=== PATIENT | male | born 1935 | race Caucasian/White ===

== ENCOUNTER → 2017-12-09 | Outpatient (CLI) | payer OTHER, MEDICARE | LOC: FIMAGING 12:40 | PROVIDERS: ATTEND Psychiatry & Neurology Neurology | DX: R26.9 Unspecified abnormalities of gait and mobility (principal); R41.3 Other amnesia ==

== ENCOUNTER 2017-12-12 00:34 | Emergency (ER) | payer OTHER, MEDICARE ==
[2017-12-12] MEDS ORDERED: NS 1,000 ML IV ONE (01:13)
--- NOTE | 2017-12-12 01:13 | EDPHY ---
H & P Stated Complaint: FALL AT 2030,BGL 336, "HAVING A BAD DAY", SLEEPY, CONFUSION Time Seen by Provider: 12/12/17 01:04 HPI/ROS: Chief Complaint: Confusion, high blood sugar, fall HPI: 82-year-old male with history of diabetes, coronary artery disease. Per family patient has been seeming a little bit more confused since 7 o'clock tonight. Patient was leaning over to get a pair of the refrigerator when he fell to the ground. Did not hit his head. No loss of consciousness. He was helped up by a neighbor. Son arrived home about 11 o'clock and checked in notice blood pressure was in the high 200s. No recent fevers or chills. No cough. No chest pain shortness of breath. No syncope or fainting. Family called nurse line advised them to bring him in for further evaluation. ROS: 10 point Review of Systems is negative except as noted in the HPI. PMH: Hypertension, diabetes, prostate disease, coronary artery disease Social History: No smoking, no alcohol, no recreational drug use Family History: non-contributory Physical Exam: Gen: Awake, Alert, No Distress HEENT: Nose: no rhinorrhea Eyes: PERRLA, EOMI Mouth: Dry mucous membranes Neck: Supple, no JVD Chest: nontender, lungs clear to auscultation Heart: S1, S2 normal, no murmur Abd: Soft, non-tender, no guarding Back: no CVA tenderness, no midline tenderness Ext: no edema, non-tender Skin: no rash Neuro: CN II-XII intact, Sensation grossly intact, Strength 5/5 in bilateral upper and lower extremities - Personal History Current Tetanus/Diphtheria Vaccine: Unsure - Medical/Surgical History Hx Asthma: No Hx Chronic Respiratory Disease: No Hx Diabetes: Yes Hx Cardiac Disease: Yes Hx Renal Disease: No Hx Cirrhosis: No Hx Alcoholism: No Hx HIV/AIDS: No Hx Splenectomy or Spleen Trauma: No Other PMH: 3 stents 1999, BPH, urinary retention x3, HIGH CHOL, CATARACT SURG, DIABETES - Social History Smoking Status: Never smoked Constitutional: Initial Vital Signs Temperature (C) 36.5 C 12/12/17 00:43 Heart Rate 66 12/12/17 00:43 Respiratory Rate 18 12/12/17 00:43 Blood Pressure 131/68 H 12/12/17 00:43 O2 Sat (%) 97 12/12/17 00:43 O2 Delivery Mode Room Air Allergies/Adverse Reactions: pseudoephedrine HCl [From Sudafed] Allergy (Unknown, Verified 12/12/17 00:40) amoxicillin [From Augmentin] Allergy (Verified 12/12/17 00:40) clavulanic acid [From Augmentin] Allergy (Verified 12/12/17 00:40) dextromethorphan Allergy (Verified 12/12/17 00:40) guaifenesin [Guaifenesin] Allergy (Verified 12/12/17 00:40) pseudoephedrine Allergy (Verified 12/12/17 00:40) Home Medications: Medication Instructions Recorded Insulin Glargine [Lantus Insulin 18 unit SQ HS 10/16/11 Vial] Lisinopril [Prinivil] 20 mg PO DAILY 10/16/11 Metformin HCl [Metformin HCl ER] 500 mg PO DAILY 10/16/11 Sotalol HCl [Sotalol] 80 mg PO BID 10/16/11 Aspirin 81mg (*) 12/12/17 Atorvastatin Calcium 12/12/17 Docusate Sodium 12/12/17 Metformin 1000 mg 12/12/17 Tamsulosin HCl 12/12/17 Medical Decision Making ED Course/Re-evaluation: Patient is improved. He is very clinically dehydrated with elevated BUN. Blood sugar is new to 100. Patient is improved after a L fluid. He is awake alert acting appropriately. No signs of infection. Will discharge with follow- up with primary care physician, return for any concerns. He is here with a signed to take him home. - Data Points Laboratory Results: Laboratory Results 12/12/17 01:34 12/12/17 01:34 12/12/17 12/12/17 12/12/17 02:10 01:34 01:34 WBC 12.33 10^3/uL H 10^3/uL (3.80-9.50) RBC 4.54 10^6/uL 10^6/uL (4.40-6.38) Hgb 13.5 g/dL L g/dL (13.7-17.5) Hct 40.1 % % (40.0-51.0) MCV 88.3 fL fL (81.5-99.8) MCH 29.7 pg pg (27.9-34.1) MCHC 33.7 g/dL g/dL (32.4-36.7) RDW 14.6 % % (11.5-15.2) Plt Count 164 10^3/uL 10^3/uL (150-400) MPV 10.5 fL fL (8.7-11.7) Neut % (Auto) 38.7 % L % (39.3-74.2) Lymph % (Auto) 46.6 % H % (15.0-45.0) [place] % (Auto) 10.3 % % (4.5-13.0) Eos % (Auto) 3.5 % % (0.6-7.6) Baso % (Auto) 0.6 % % (0.3-1.7) Nucleat RBC Rel Count 0.2 % % (0.0-0.2) Absolute Neuts (auto) 4.77 10^3/uL 10^3/uL (1.70-6.50) Absolute Lymphs (auto) 5.75 10^3/uL H 10^3/uL (1.00-3.00) Absolute Monos (auto) 1.27 10^3/uL H 10^3/uL (0.30-0.80) Absolute Eos (auto) 0.43 10^3/uL H 10^3/uL (0.03-0.40) Absolute Basos (auto) 0.07 10^3/uL 10^3/uL (0.02-0.10) Absolute Nucleated RBC 0.03 10^3/uL H 10^3/uL (0-0.01) Immature Gran % 0.3 % % (0.0-1.1) Immature Gran # 0.04 10^3/uL 10^3/uL (0.00-0.10) Sodium 141 mEq/L mEq/L (135-145) Potassium 4.9 mEq/L mEq/L (3.5-5.2) Chloride 104 mEq/L mEq/L (97-110) Carbon Dioxide 27 mEq/l mEq/l (22-31) Anion Gap 10 mEq/L mEq/L (8-16) BUN 32 mg/dL H mg/dL (7-23) Creatinine 1.0 mg/dL mg/dL (0.7-1.3) Estimated GFR > 60 Glucose 230 mg/dL H mg/dL (70-100) Calcium 9.4 mg/dL mg/dL (8.5-10.4) Total Bilirubin 0.5 mg/dL mg/dL (0.1-1.4) AST 20 IU/L IU/L (17-59) ALT 24 IU/L IU/L (21-72) Alkaline Phosphatase 59 IU/L IU/L (38-126) Total Protein 6.0 g/dL L g/dL (6.3-8.2) Albumin 3.8 g/dL g/dL (3.5-5.0) Urine Color YELLOW Urine Appearance CLEAR Urine pH 5.0 (5.0-7.5) Ur Specific [place] 1.022 (1.002-1.030) Urine Protein 1+ H (NEGATIVE) Urine Ketones NEGATIVE (NEGATIVE) Urine Blood NEGATIVE (NEGATIVE) Urine Nitrate NEGATIVE (NEGATIVE) Urine Bilirubin NEGATIVE (NEGATIVE) Urine Urobilinogen NEGATIVE EU EU (0.2-1.0) Ur Leukocyte Esterase NEGATIVE (NEGATIVE) Urine RBC NONE SEEN /hpf /hpf (0-3) Urine WBC 1-3 /hpf /hpf (0-3) Ur Epithelial Cells NONE SEEN /lpf /lpf (NONE-1+) Hyaline Casts 25-50 /lpf H /lpf (0-1) Urine Mucus TRACE /lpf /lpf (NONE-1+) Urine Glucose 3+ H (NEGATIVE) Medications Given: Discontinued Medications Sodium Chloride (Ns) 1,000 mls @ 0 mls/hr IV ONCE ONE; Wide Open PRN Reason: Protocol Stop: 12/12/17 01:14 Last Admin: 12/12/17 01:36 Dose: 1,000 mls Departure - Departure Disposition: Home, Routine, Self-Care Clinical Impression: Dehydration, Fall Condition: Good Instructions: Dehydration (ED), Fall Prevention for Older Adults (ED) Additional Instructions: Follow up with primary care physician in 2-3 days for further evaluation. Make sure you drink at least 8, 8 oz glasses of water a day. Return to the emergency department for fainting, chest pain, shortness of breath , nausea or vomiting, or any other concerns. Referrals: Patient,NotPresent [Primary Care Provider] - As per Instructions
[2017-12-12 02:17] LABS: PLATELET COUNT 164 10^3/uL (150-400)
[2017-12-12 03:44] VITALS: BP 164/76
== END 2017-12-12 03:45 | disposition home or self-care (01) ==
DX: E86.0 Dehydration (principal); E11.9 Type 2 diabetes mellitus without complications; I10 Essential (primary) hypertension; I25.10 Atherosclerotic heart disease of native coronary artery without angina pectoris; E86.9 Volume depletion, unspecified; Z04.3 Encounter for examination and observation following other accident; Z79.82 Long term (current) use of aspirin; Z79.84 Long term (current) use of oral hypoglycemic drugs; W18.39XA Other fall on same level, initial encounter

== ENCOUNTER 2018-02-04 09:59 | Inpatient (IN) | payer OTHER, MEDICARE ==
[2018-02-04] MEDS ORDERED: BISACODYL 10 MG SUPP PR PRN (16:11)
[2018-02-04] MEDS ORDERED: POLYETHYLENE GLYCOL 3350 17 GM PKT PO PRN (16:11)
[2018-02-04] MEDS ORDERED: D50W 25 GM/50 ML SYR IVP PRN (16:54)
[2018-02-04] MEDS: metFORMIN HCL 500 MG TAB PO SCH (17:26)
[2018-02-04] MEDS: INSULIN LISPRO 100 UNIT/ML SC SCH (17:27)
--- NOTE | 2018-02-04 18:02 | GHP ---
[f rep st] HISTORY AND PHYSICAL POST ADMISSION PHYSICIAN EVALUATION AND REHABILITATION TREATMENT PLAN DATE OF ADMISSION: 02/04/2018 DATE OF EVALUATION: 02/04/2018 TIME OF EVALUATION: 1605. REFERRING FACILITY: [facility], [place] IMPAIRMENT GROUP: 1.1. DATE OF ONSET: 01/30/2018 REFERRING PHYSICIAN: Dr. Jackson CONSULTING PHYSICIANS: He had a consultation with Neurology, Dr. Mcclure. 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 ETIOLOGIC DIAGNOSIS: Left body involvement (right brain). HISTORY OF PRESENT ILLNESS: This patient presented with left-sided weakness and slurred speech and was admitted to [facility], [place] under a stroke alert. Brain imaging with MRI showed an acute right posterior internal capsule CVA. EKG showed J point elevation in V1 to V3 and T-wave inversion in the inferior lateral leads. Troponin was negative. Echocardiogram showed normal ventricular size and systolic function, ejection fraction of 68%, mild-to -moderate concentric LVH, and grade 1 diastolic dysfunction. He had mild aortic valve stenosis with a mean aortic valve gradient of 15 mmHg. There was no intracardiac shunt seen. Though it is not reported directly in the notes that I have, presumably he had no dysrhythmias noted on tele monitoring. He was already on lisinopril, aspirin, and atorvastatin. Clopidogrel was added to reduce the likelihood of a recurrent stroke. He had initial clinical deterioration including reduced ability to move his left upper extremity. A repeat MRI showed interval increase in the size of the area of restricted diffusion from 3.5 x 5.5 mm to 10 x 6 mm suggesting infarct extension, but there was no hemorrhage or midline shift. He was seen by therapies, was medically stable, and was ready for discharge to inpatient rehabilitation. OTHER STUDIES AND LABS DURING HIS STAY: On the day of discharge from the hospital, 02/04/2018, basic metabolic profile was overall within normal limits. He had an elevated glucose at 150. Creatinine was 0.89 with estimated GFR of 79.6. CBC showed an elevated white blood cell count at 14.4. This apparently is chronic. There was no anemia. Platelet count was normal. On differential, there was no left shift. CT angiogram of the head and neck was negative for stenosis or other vascular abnormality. LDL was 71. PRECAUTIONS: He is a fall risk. He has aspiration precautions. ACTIVE COMORBIDITIES: He has the tier 3 comorbidities of hemiparesis and of diabetes mellitus. PAST MEDICAL HISTORY: 1. Coronary artery disease with history of NE. 2. Hypertension. 3. Diabetes mellitus type 2. 4. Dyslipidemia. 5. Dementia with donepezil initiated approximately 2 weeks ago. 6. Benign prostatic hyperplasia. 7. Spinal stenosis at the L4-L5 level. PAST SURGICAL HISTORY: He has had a transurethral resection of the prostate. He has had bilateral cataract surgery. He has had coronary angioplasty and stent placement. He has had knee surgery. PRE-HOSPITAL MEDICATIONS: 1. Aspirin 81 mg p.o. daily. 2. Atorvastatin 40 mg p.o. daily. 3. Docusate 100 mg p.o. b.i.d. 4. Donepezil 5 mg p.o. q.h.s. 5. Insulin glargine. 6. Lisinopril 20 mg p.o. daily. 7. Metformin 1000 mg p.o. b.i.d. 8. Sotalol 80 mg p.o. b.i.d. 9. Tamsulosin 0.5 mg p.o. daily. ADMISSION MEDICATIONS: 1. Acetaminophen 650 mg p.o. q.4 hours p.r.n. 2. Aspirin 81 mg p.o. daily. 3. Atorvastatin 40 mg p.o. daily. 4. Bisacodyl 10 mg p.r. daily p.r.n. 5. Clopidogrel 75 mg p.o. daily. 6. Docusate 100 mg p.o. b.i.d. 7. Insulin glargine 6 units subcutaneous q.a.m. and 6 units subcutaneous daily at 1600. 8. Lisinopril 20 mg p.o. daily. 9. Loratadine 10 mg p.o. daily. 10. Metformin 500 mg p.o. b.i.d. 11. Polyethylene glycol 17 g p.o. daily p.r.n. 12. Sotalol 80 mg p.o. b.i.d. 13. Tamsulosin 0.4 mg p.o. daily. ALLERGIES: Are listed to pseudoephedrine, amoxicillin, clavulanic acid, dextromethorphan, and guaifenesin. PSYCHOSOCIAL HISTORY: He is . He and his split their time between [place] and [place]. Their son lives in [place]. He has worked as an building architect. Is originally from [place] and came to the [place] in [place]. He served in the in the [employer]. He is a nonsmoker. He enjoys about a half bottle of beer with dinner every night. FAMILY HISTORY: Noncontributory. REVIEW OF SYSTEMS: He reports he has had a cough and was started on a medication in the hospital for it. He denies dyspnea. He is aware of his inability to move the left side of his body. He reports this worsened during his hospitalization. He denies loss of sensation. He denies headache or vision changes. He denies difficulty swallowing. He denies chest pain or palpitations, fevers or chills, nausea, vomiting, constipation, or diarrhea. He has a reduced appetite. He says his feet are always cold, especially his right foot. Otherwise, a 10-point review of systems is negative. PHYSICAL EXAMINATION: VITAL SIGNS: Vitals are not yet available in the chart. His systolic blood pressure however was 180 when first measured on arrival in the unit. His weight this morning at the hospital was 68.9 kg. His vitals this morning at the hospital: Blood pressure was 174/80, heart rate was 61, respiratory rate was 18, oxygen saturation was 95% on room air. Temperature was 36 degrees centigrade. GENERAL: This is a well-nourished, well-developed, elderly man, appears his chronologic age, sitting in a chair in hospital gown, cooperative, and in no acute distress. HEENT: Extraocular movements are intact. Pupils are equal, round, reactive to light. Mucous membranes are moist. Dentition is in good condition. He has an uncrowded airway, Mallampati class 2. There is no posterior oropharyngeal mucus. NECK: Supple. HEART: There is a regular rate and rhythm. There is a 1/6 to 2/6 systolic ejection murmur at the left sternal border. LUNGS: Clear to auscultation bilaterally. ABDOMEN: Soft, nontender, nondistended with normoactive bowel sounds and no hepatosplenomegaly. EXTREMITIES: His feet are mildly cyanotic. There is no clubbing or edema. Radial pulses are 2+ bilaterally, and dorsalis pedis pulses are 1+ bilaterally. NEUROLOGIC: He is alert and oriented x3. Cranial nerves 2 -12 are grossly intact. He has mildly slurred speech. He has flaccid paralysis of the left upper and lower extremities. Sensation is intact to light touch. Deep tendon reflexes are 2+ bilaterally at the patella and absent bilaterally at the Achilles tendons. Plantar reflex is indeterminate bilaterally. There is no increase in tone. There is no tremor. SKIN: He has an approximately 2 cm abrasion on his left posterior thorax over approximately T8 or 9. Otherwise, there is no skin breakdown. CURRENT LEVEL OF FUNCTION PER THE PRE-ADMISSION SCREEN: Regarding diet, feeding and swallowing, there was no reported swallowing deficit. He required minimal assist for self-feeding. Regarding dressing, he required maximal assist for lower body and minimal assist with for upper body with cues for spinal precautions. For toileting, he was dependent for clothing management and hygiene. Regarding continence, he had episodes of bowel incontinence during a therapy session. Bed mobility required moderate assist for logroll. Transfers required moderate assist. He used a front-wheeled walker and wheelchair. Regarding balance, he needed assistance with sitting balance and to attain and maintain midline. For standing balance, he needed assistance of 2 with a front-wheeled walker. Regarding endurance, he had decreased activity tolerance. He was able to stand for approximately 1 minute. Gait required maximal assist with facilitation for pre-gait activities. Regarding cognition, he was noted to be oriented and to follow multistep commands with increased time. He needed assistance to identify errors. He had decreased awareness of deficits. It was noted that he is left handed. On today's exam, there are no significant changes from the preadmission screen. IMPRESSION: This is an 82-year-old man with a history of hypertension, diabetes , dyslipidemia, and coronary artery disease, who suffered a cerebrovascular accident to the right internal capsule on 01/30/2018, causing left upper and lower extremity hemiparesis. Hospital evaluation included an echocardiogram with no embolic source, head and neck CT angiogram with no embolic source and no stenosis, and presumably telemetry monitoring with no report of dysrhythmias. The stroke happened while he was on aspirin, so clopidogrel was added for secondary prevention. He was medically stabilized, participating in therapies, and appropriate for inpatient rehabilitation. His goal is to complete a rehabilitation stay and then discharge to his son's home in [place] with family and home care services. For a safe discharge, it is anticipated that he will require supervision with bed mobility, achieve standby assist level for transfers, be able to ambulate for household distances with the least restrictive device with contact guard, will be able to negotiate a flight of stairs with a rail on the right or cane with contact guard assist, and to be able to propel a wheelchair independently. It is likely he will require supervision and cues for bathing and dressing. He will receive therapy with physical therapy, occupational therapy, and speech and language pathology for 60 minutes per day for each discipline on 5-7 days of the week. His anticipated length of stay is 14 days. It is anticipated that upon discharge he will continue to benefit from home health services including an aide, occupational therapy, and physical therapy. PLAN: 1. CVA, right internal capsule, with left upper and lower extremity hemiparesis in a [id number] man. PT and OT to optimize mobility and activities of daily living to the standby assist or contact guard assist level. 2. Dysarthria and history of dementia to be evaluated further by Speech and Language Pathology. 3. Secondary prevention of cerebrovascular accident/neuro recovery. Continue aspirin, clopidogrel, blood pressure and lipid control. Will initiate fluoxetine for neuro recovery at 10 mg daily beginning tomorrow, 02/05/2018. If it is tolerated, we will titrate to 20 mg p.o. daily. 4. Hypertension. Continue lisinopril. Blood pressure is elevated upon arrival at the rehabilitation unit. However, this may be due to the stresses of his trip from [place]. Continue to monitor blood pressures and will adjust and add medications as necessary to achieve target of less than 140/90. 5. Dyslipidemia. Continue atorvastatin. 6. History of dementia, mild. Per hospital records, the SLUMS was administered and he scored 17/30. He has been on donepezil 5 mg q.h.s. for approximately 2 weeks, and this will be continued. 7. History of cardiac dysrhythmia, unclear what the rhythm abnormality was. He is on sotalol, which also contributes to blood pressure control. 8. Risk for QT prolongation with concurrent donepezil and sotalol. Will obtain a copy of EKG from [facility], [place]. If there is no acute T prolongation, will make no change in these medications. 9. Possible peripheral vascular disease with cyanotic and cold feet. Secondary prevention for cerebrovascular accident and coronary artery disease will also serve to prevent worsening of circulation to his lower extremities. 10. Cough, presumably due to seasonal allergies, as he was begun on an antihistamine at the hospital. Will continue cetirizine per hospital formulary. If cough continues, we will evaluate further. 11. Diabetes mellitus type 2. Continue metformin at 500 mg p.o. b.i.d. Continue insulin glargine at 6 units twice daily. Will likely plan to consolidate this as a single h.s. dose. Will initiate sliding scale with insulin lispro and adjust medications as needed. A reasonable goal would be to see if he can be managed on oral antihyperglycemics alone. Per hospital discharge information, his hemoglobin A1c was 8.5%. It would be in his interest to have improved glucose control, though given his age and comorbidities, a reasonable goal would be 8%. 12. Chronic leukocytosis. He had no signs or symptoms of infection in the hospital. The differential was primary lymphocytes, and the hospital physicians queried whether he has an underlying leukemia, and per hospital records, the reported that he had a long history of leukocytosis, had seen oncologist in [place], and no further evaluation or treatment was advised at that time. 13. Spinal stenosis. He has been placed on spinal precautions. It is unclear if these are truly necessary, but it is worthwhile to prevent any complications from his L4-L5 grade 1 degenerative spondylolisthesis and severe acquired central canal stenosis. 14. Prophylaxis. He is at elevated risk for DVT given his age and hemiparesis. Will initiate enoxaparin 40 mg subcutaneous daily and will provide sequential compression devices to his legs at night. FOLLOWUP: He had followup advised in 2 weeks with the neurologist in [place], Dr. Mcclure, though it seems likely that he will seek followup with a neurologist in [place] where his son lives. PRIMARY CARE PROVIDER: Mariela Matthews MD, in [place]. /[id number]/MODL [id number]
[2018-02-04] MEDS: SOTALOL HCL 80 MG TAB PO SCH (21:21)
[2018-02-04] MEDS: DONEPEZIL HCL 5 MG TAB PO SCH (21:24)
[2018-02-05] MEDS: INSULIN LISPRO 100 UNIT/ML SC SCH ×3 (08:41→19:51)
[2018-02-05] MEDS: ENOXAPARIN 40 MG/0.4 ML SYR SC SCH (08:44)
[2018-02-05] MEDS: ATORVASTATIN CALCIUM 40 MG TAB PO SCH (08:44)
[2018-02-05] MEDS: CLOPIDOGREL BISULFATE 75 MG TAB PO SCH (08:44)
[2018-02-05] MEDS: TAMSULOSIN HCL 0.4 MG CAP PO SCH (08:45)
[2018-02-05] MEDS: FLUoxetine 10 MG CAP PO SCH (08:45)
[2018-02-05] MEDS: ASPIRIN EC 81 MG TAB PO SCH (08:45)
[2018-02-05] MEDS: CETIRIZINE 10 MG TAB PO SCH (08:46)
[2018-02-05] MEDS: metFORMIN HCL 500 MG TAB PO SCH (08:46)
[2018-02-05] MEDS: LISINOPRIL 20 MG TAB PO SCH (08:50)
[2018-02-05] MEDS: SOTALOL HCL 80 MG TAB PO SCH ×2 (08:50→21:25)
[2018-02-05] MEDS ORDERED: INSULIN GLARGINE 100 UNITS/ML SYRINGE SC SCH ×2 (09:00→16:00)
--- NOTE | 2018-02-05 12:22 | SOAPPROG ---
SOAP Progress Note Assessment/Plan: Assessment: CVA, right internal capsule, 01/30/2018, with left upper and lower extremity hemiparesis in a [id number] man. * PT and OT to optimize mobility and activities of daily living to the standby assist or contact guard assist level. Dysarthria and history of dementia to be evaluated further by Speech and Language Pathology. Secondary prevention of cerebrovascular accident/neuro recovery. * Continue aspirin, clopidogrel, blood pressure and lipid control. * Initiate fluoxetine for neuro recovery at 10 mg daily beginning 02/05/2018. If it is tolerated, will titrate to 20 mg p.o. daily. Hypertension. Continue lisinopril. Blood pressure is elevated. * Add amlodipine 2.5 mg at bedtime starting 02/05/2018. Dyslipidemia. Continue atorvastatin. Diabetes mellitus type 2. * Increase metformin from 500 mg p.o. b.i.d to 850 mg BID starting 02/05/2018. * On insulin glargine at 6 units twice daily; change to 12 mg at HS starting 02/06.. Continue sliding scale with insulin lispro and adjust medications as needed. A reasonable goal would be to see if he can be managed on oral antihyperglycemics alone. * Per hospital discharge information, his hemoglobin A1c was 8.5%.Given his age and comorbidities, a reasonable goal would be 8%. History of dementia. Per hospital records, the SLUMS was administered and he scored 17/30. He has been on donepezil 5 mg q.h.s. for approximately 2 weeks, and this will be continued. History of cardiac dysrhythmia, unclear what the rhythm abnormality was. He is on sotalol, which also contributes to blood pressure control. Risk for QT prolongation with concurrent donepezil and sotalol. Reviewed EKG from [facility]. No QT prolongation. Possible peripheral vascular disease with cyanotic and cold feet. Secondary prevention for cerebrovascular accident and coronary artery disease will also serve to prevent worsening of circulation to his lower extremities. Cough, due to seasonal allergies. Continue cetirizine. Chronic leukocytosis. He had no signs or symptoms of infection in the hospital. The differential was primary lymphocytes, and the hospital physicians queried whether he has an underlying leukemia, and per hospital records, the reported that he had a long history of leukocytosis, had seen oncologist in [place], and no further evaluation or treatment was advised at that time. Spinal stenosis. He has been placed on spinal precautions. It is unclear if these are truly necessary, but it is worthwhile to prevent any complications from his L4-L5 grade 1 degenerative spondylolisthesis and severe acquired central canal stenosis. Prophylaxis. He is at elevated risk for DVT given his age and hemiparesis. Will initiate enoxaparin 40 mg subcutaneous daily and will provide sequential compression devices to his legs at night. FOLLOWUP: He had followup advised in 2 weeks with the neurologist in [place], Dr. Mcclure, though it seems likely that he will seek followup with a neurologist in [place] where his son lives. PRIMARY CARE PROVIDER: Mariela Matthews MD, in [place]. 02/05/18 12:22 02/05/18 14:45 Subjective: Inpatient about lack of improvement. Otherwise without complaint. He did not notice coughing overnight. Has history of seasonal allergies with cough due to postnasal drainage. He was on fluticasone nasal spray at 1 time for about a week and did not notice any improvement. He says he did best while in the hospital when he was given Claritin as well as Tessalon Perle. No dyspnea, no fevers or chills. Objective: Vital Signs Temp Pulse Resp BP Pulse Ox 36.6 C 58 L 18 168/86 H 93 02/05/18 08:00 02/05/18 08:50 02/05/18 08:00 02/05/18 08:50 02/05/18 08:00 02/04/18 02/05/18 02/06/18 05:59 05:59 05:59 Intake Total 350 Output Total 430 Balance -80 Physical Exam - Physical Exam General Appearance: WD/WN, alert, no apparent distress Respiratory: normal breath sounds, No crackles, No rhonchi, No wheezing Cardiac/Chest: regular rate, rhythm, systolic murmur, No edema Skin: normal color, warm/dry Neuro/Psych: alert, normal mood/affect, motor weakness (Left upper and lower extremities), speech abnormalities (Hypophonia and mild dysarthria) ICD10 Worksheet Patient Problems: Problems Problem Status Onset Cerebrovascular accident (CVA) involving left cerebral hemisphere Acute - ICD10 Problem Qualifiers (1) Cerebrovascular accident (CVA) involving left cerebral hemisphere
--- NOTE | 2018-02-05 12:22 | PDOREHIP ---
Admission [facility] - Admission - 3 Day Assessment Period Admission Date/Day 1: 02/04/18 Day 2: 02/05/18 Day 3: 02/06/18 - Active Diagnoses Comorbidities and Co-existing Conditions at Admission: 60682. DM (e.g. diabetic retinopathy, nephropathy, and neuropathy) - Skin Conditions Unhealed Pressure Ulcer (1 or more/Stage 1 or >)-Admission: 0. No
[2018-02-05] MEDS ORDERED: metFORMIN HCL 850 MG TAB PO SCH (15:00)
[2018-02-05] MEDS: metFORMIN HCL 850 MG TAB PO SCH (19:44)
[2018-02-05] MEDS: DONEPEZIL HCL 5 MG TAB PO SCH (21:25)
[2018-02-06] MEDS: ACETAMINOPHEN 325 MG TAB PO PRN (03:06)
[2018-02-06] MEDS: INSULIN LISPRO 100 UNIT/ML SC SCH ×3 (08:13→17:18)
[2018-02-06] MEDS: CETIRIZINE 10 MG TAB PO SCH (08:47)
[2018-02-06] MEDS: TAMSULOSIN HCL 0.4 MG CAP PO SCH (08:47)
[2018-02-06] MEDS: ATORVASTATIN CALCIUM 40 MG TAB PO SCH (08:48)
[2018-02-06] MEDS: metFORMIN HCL 850 MG TAB PO SCH ×2 (08:52→17:17)
[2018-02-06] MEDS: CLOPIDOGREL BISULFATE 75 MG TAB PO SCH (08:57)
[2018-02-06] MEDS: LISINOPRIL 20 MG TAB PO SCH (08:58)
[2018-02-06] MEDS: SOTALOL HCL 80 MG TAB PO SCH ×2 (09:00→20:58)
[2018-02-06] MEDS: FLUoxetine 10 MG CAP PO SCH (09:02)
[2018-02-06] MEDS: ASPIRIN EC 81 MG TAB PO SCH (09:02)
[2018-02-06] MEDS: ENOXAPARIN 40 MG/0.4 ML SYR SC SCH (10:03)
--- NOTE | 2018-02-06 11:40 | SOAPPROG ---
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 * Initial functional independence measure 38 on 02/06/2018. Maximal assist for bed mobility, 2 person transfer with moderate to maximal assist. Minimal assist for grooming and hygiene for seated balance. Upper body dressing requires maximal assist with cues, lower body dressing requires total assist. He can stand at the rail with 2 person assist. Maximal assist and cues for bathing. * Continue PT and OT to optimize mobility and activities of daily living to the standby assist or contact guard assist level. Dysarthria and history of dementia. * Working memory is very impaired. Also with decreased attention, organization , initiation and problem-solving. * SLUMS in the hospital was . * Continue Speech and Language Pathology. Continue donepezil. Secondary prevention of cerebrovascular accident/neuro recovery. * Continue aspirin, clopidogrel, blood pressure and lipid control. * Initiate fluoxetine for neuro recovery at 10 mg daily beginning 02/05/2018. If it is tolerated, will titrate to 20 mg p.o. daily. Hypertension. Continue lisinopril. Blood pressure is elevated. * Added amlodipine 2.5 mg at bedtime starting 02/05/2018 but had low blood pressure at HS 02/05/2018 so discontinued amlodipine. * Blood pressure elevated in the morning 02/06/2018. Resume amlodipine 2.5 mg q.day morning dosing. Diabetes mellitus type 2. * Increase metformin from 500 mg p.o. b.i.d to 850 mg BID starting 02/05/2018. * On insulin glargine at 6 units twice daily; fasting blood sugar lower than necessary 02/06/2018. Change to 8 units at HS starting 02/06/2018.. Continue sliding scale with insulin lispro and adjust medications as needed. A reasonable goal would be to see if he can be managed on oral antihyperglycemics alone. * Per hospital discharge information, his hemoglobin A1c was 8.5%.Given his age and comorbidities, a reasonable goal would be 8%. Weight loss in recent months. * Related to influenza, shingles and secondary Staphylococcus infection. * Consultation with dietitian. Bowel and bladder incontinence. * Continue condom catheter at night. * Scheduled toileting. Dyslipidemia. Continue atorvastatin. History of cardiac dysrhythmia, unclear what the rhythm abnormality was. He is on sotalol, which also contributes to blood pressure control. Risk for QT prolongation with concurrent donepezil and sotalol. Reviewed EKG from [facility]. No QT prolongation. Possible peripheral vascular disease with cyanotic and cold feet. Secondary prevention for cerebrovascular accident and coronary artery disease will also serve to prevent worsening of circulation to his lower extremities. Cough, due to seasonal allergies. Continue cetirizine. Chronic leukocytosis. He had no signs or symptoms of infection in the hospital. The differential was primary lymphocytes, and the hospital physicians queried whether he has an underlying leukemia, and per hospital records, the reported that he had a long history of leukocytosis, had seen oncologist in [place], and no further evaluation or treatment was advised at that time. Spinal stenosis. He has been placed on spinal precautions. It is unclear if these are truly necessary, but it is worthwhile to prevent any complications from his L4-L5 grade 1 degenerative spondylolisthesis and severe acquired central canal stenosis. Prophylaxis. He is at elevated risk for DVT given his age and hemiparesis. Will initiate enoxaparin 40 mg subcutaneous daily and will provide sequential compression devices to his legs at night. DISPOSITION: Attended staffing, 15 min. Discussed with case management, dietitian, nursing, PT, OT, RESPIRATORY PHYSICIAN. Primary residence is in [place] where there is no local family. He and his spent considerable time in [place] at their son's home with multiple steps to enter and steps to the bedroom in the house. At present goal is either sufficient independence to return to [place] or ability to climb stairs for return to son's home in [place]. Discharge date set for 03/06/2018. FOLLOWUP: He had followup advised in 2 weeks with the neurologist in [place], Dr. Mcclure, though it seems likely that he will seek followup with a neurologist in [place] where his son lives. PRIMARY CARE PROVIDER: Mariela Matthews MD, in [place]. 02/06/18 11:18 Subjective: Complains about the placement of bars in the bathroom. He thinks there should be a bar directly in front of the toilet for patient's to pull up on when getting off the toilet. Otherwise without complaints. Slept well, not in pain , no cough or dyspnea, no fevers or chills. Has noted return of movement to his left hand. Says he gets sudden bowel urgency and does not get transferred to the toilet in time and thus has incontinence. Objective: Vital Signs Temp Pulse Resp BP Pulse Ox 36.3 C 61 18 162/75 H 94 02/06/18 06:28 02/06/18 09:00 02/06/18 06:28 02/06/18 09:00 02/06/18 06:28 02/05/18 02/06/18 02/07/18 05:59 05:59 05:59 Intake Total 350 160 360 Output Total 430 425 75 Balance -80 -265 285 - Time Spent With Patient Time Spent With Patient: Greater than 35 min floor time today, including more than 50% of time in coordination of care during staffing meeting, and counseling patient. Physical Exam - Physical Exam General Appearance: WD/WN, alert, no apparent distress Respiratory: normal breath sounds, No crackles, No rhonchi, No wheezing Cardiac/Chest: regular rate, rhythm, No edema, No JVD Skin: normal color, warm/dry Neuro/Psych: alert, normal mood/affect, motor weakness (Left upper and lower extremities. Demonstrates some movement of the left fingers and left shoulder.) , other (Appears to have reduced awareness of position of left arm.) ICD10 Worksheet Patient Problems: Problems Problem Status Onset Cerebrovascular accident (CVA) involving left cerebral hemisphere Acute - ICD10 Problem Qualifiers (1) Cerebrovascular accident (CVA) involving left cerebral hemisphere
[2018-02-06] MEDS: DONEPEZIL HCL 5 MG TAB PO SCH (20:58)
[2018-02-06] MEDS ORDERED: INSULIN GLARGINE 100 UNITS/ML UNIT SC SCH (21:00)
[2018-02-06] MEDS: INSULIN GLARGINE 100 UNITS/ML UNIT SC SCH (21:00)
[2018-02-07] MEDS: INSULIN LISPRO 100 UNIT/ML SC SCH ×3 (08:31→17:09)
[2018-02-07] MEDS: metFORMIN HCL 850 MG TAB PO SCH ×2 (08:33→17:08)
[2018-02-07] MEDS: ASPIRIN EC 81 MG TAB PO SCH (08:34)
[2018-02-07] MEDS: ATORVASTATIN CALCIUM 40 MG TAB PO SCH (08:34)
[2018-02-07] MEDS: ENOXAPARIN 40 MG/0.4 ML SYR SC SCH (08:35)
[2018-02-07] MEDS: CETIRIZINE 10 MG TAB PO SCH (08:35)
[2018-02-07] MEDS: FLUoxetine 10 MG CAP PO SCH (08:35)
[2018-02-07] MEDS: CLOPIDOGREL BISULFATE 75 MG TAB PO SCH (08:35)
[2018-02-07] MEDS: LISINOPRIL 20 MG TAB PO SCH (08:36)
[2018-02-07] MEDS: TAMSULOSIN HCL 0.4 MG CAP PO SCH (08:36)
[2018-02-07] MEDS: SOTALOL HCL 80 MG TAB PO SCH ×2 (08:36→21:04)
--- NOTE | 2018-02-07 16:08 | SOAPPROG ---
CASIE Progress Note Assessment/Plan: 82-year-old male status post a right posterior internal capsule stroke diagnosed 01/30/2018, impairments in mobility, self-care, including dysarthria and history of dementia. Today's update: I met with the family for about 20 min and discussed treatment options for diabetes management as well as low back pain. Also discussed with them the patient's history of dementia. A total of 35 min was spent on the floor in the care of the patient, the majority of which was spent counseling and coordination of care described above. Overall, he seems to be doing well in therapy but is limited by low back pain per the therapist. He concurs with this as well. Otherwise the therapist did not express other concerns. He was working with 2 therapists in physical therapy on weight shifting. Family endorse that he was diagnosed with some brain atrophy but did not specifically say he was diagnosed with dementia. His blood pressure is well controlled today , there are some runny is values in the record, showing 180/80 and I was told that these were in error. Continue current dose of lisinopril, would consider amlodipine if an additional agent was necessary but would likely increase lisinopril [address] Ruggiero recommendation. Continue to watch his diabetes very closely. He just recently had metformin increased from 500 mg p. O. Twice a day to 850 mg p. O. Twice a day. Continue the glargine and sliding scale insulin with the goal to reach calculate his overall dosage tomorrow with some mealtime insulin. Plan to continue a condom catheter at night for now. Starting a low-dose gabapentin 3 times a day for low back pain management well they consider whether not to do acupuncture. Additional issues reviewed but not changed today include secondary prevention of stroke not otherwise discussed above, weight loss, bowel and bladder incontinence , cardiac dysrhythmia, risk of QT prolongation, possible peripheral vascular disease, cough, chronic leukocytosis, DVT prophylaxis. Plan to discharge 03/06/[address] Ruggiero 02/07/18 16:02 Subjective: Chief complaint: Rehab progress No acute events overnight. I spoke at length with family regarding issues around urinary incontinence at night, low back pain, history of dementia, diabetes management, management of bowel meds. They asked for no MiraLax, they also asked for p.r.n. Enema. Additional details can be found in the assessment and plan as well. Patient denies any new shortness of breath or chest pain, no new numbness, tingling, or weakness. He feels like his therapy is going well. No particular concerns. Objective: Vital Signs Temp Pulse Resp BP Pulse Ox 36.3 C 62 16 104/63 95 02/07/18 06:41 02/07/18 10:35 02/07/18 10:35 02/07/18 10:35 02/07/18 06:41 02/06/18 02/07/18 02/08/18 05:59 05:59 05:59 Intake Total 160 1230 Output Total 425 1005 100 Balance -265 225 -100 Physical Exam - Physical Exam General Appearance: WD/WN, alert, no apparent distress, thin EENT: No scleral icterus (R), No scleral icterus (L) Respiratory: No respiratory distress, No accessory muscle use Cardiac/Chest: normal peripheral pulses, regular rate, rhythm, No edema Abdomen: non-tender, soft Skin: normal color, warm/dry, No cyanosis, No diaphoresis Extremities: No pedal edema, No swelling Neuro/Psych: alert, normal mood/affect ICD10 Worksheet Patient Problems: Problems Problem Status Onset Cerebrovascular accident (CVA) involving left cerebral hemisphere Acute
[2018-02-07] MEDS: GABAPENTIN 100 MG CAP PO SCH ×2 (17:08→21:09)
[2018-02-07] MEDS: INSULIN GLARGINE 100 UNITS/ML UNIT SC SCH (21:04)
[2018-02-07] MEDS: DONEPEZIL HCL 5 MG TAB PO SCH (21:05)
[2018-02-08] MEDS: ATORVASTATIN CALCIUM 40 MG TAB PO SCH (08:22)
[2018-02-08] MEDS: ENOXAPARIN 40 MG/0.4 ML SYR SC SCH (08:22)
[2018-02-08] MEDS: FLUoxetine 10 MG CAP PO SCH (08:23)
[2018-02-08] MEDS: metFORMIN HCL 850 MG TAB PO SCH ×2 (08:23→17:41)
[2018-02-08] MEDS: GABAPENTIN 100 MG CAP PO SCH ×3 (08:23→21:00)
[2018-02-08] MEDS: SOTALOL HCL 80 MG TAB PO SCH ×2 (08:23→21:00)
[2018-02-08] MEDS: ASPIRIN EC 81 MG TAB PO SCH (08:23)
[2018-02-08] MEDS: LISINOPRIL 20 MG TAB PO SCH (08:23)
[2018-02-08] MEDS: CLOPIDOGREL BISULFATE 75 MG TAB PO SCH (08:24)
[2018-02-08] MEDS: TAMSULOSIN HCL 0.4 MG CAP PO SCH (08:25)
[2018-02-08] MEDS: CETIRIZINE 10 MG TAB PO SCH (08:25)
[2018-02-08] MEDS: INSULIN LISPRO 100 UNIT/ML SC SCH ×5 (08:34→17:41)
--- NOTE | 2018-02-08 11:50 | SOAPPROG ---
SOAP Progress Note Assessment/Plan: 82-year-old male status post a right posterior internal capsule stroke diagnosed 01/30/2018, impairments in mobility, self-care, including dysarthria and history of dementia. Today's update: Adjusted diabetes regimen today to include 2 units of short- acting insulin before meals along with a lower dose sliding scale insulin, goal to normalize glucose and gradually increase the daily dose of insulin as needed. Being careful considering he recently increased his dose of metformin. Also he continues to endorse some low back pain, unsure if the new gabapentin has been helpful. Counseled the family that steroid injections for the spine are not available as an inpatient but we would pursue that after discharge. Recorded blood pressures are somewhat erratically, working with nursing to ensure that there accurate. Otherwise started docusate every other day which was his home regimen. Additional issues reviewed but not changed today include secondary prevention of stroke not otherwise discussed above, weight loss, bowel and bladder incontinence , cardiac dysrhythmia, risk of QT prolongation, possible peripheral vascular disease, cough, chronic leukocytosis, DVT prophylaxis. Plan to discharge 03/06/[address] Ruggiero 02/07/18 16:02 02/08/18 11:46 Subjective: Chief complaint diabetes management and rehabilitation progress No acute events overnight. Patient denies any new shortness of breath or chest pain, no new numbness, tingling, or weakness. His glucoses run a bit high and he has received about a total units of sliding scale insulin in the past 24 hr, no episodes of hypoglycemia. He endorses some ongoing low back pain, he is not sure of gabapentin has yet been helpful. Still wanting and steroid injection when possible. Therapy notes that he is participating but pain is an issue for him. Objective: Vital Signs Temp Pulse Resp BP Pulse Ox 36.4 C 66 16 100/64 94 02/08/18 09:30 02/08/18 09:30 02/08/18 09:30 02/08/18 09:30 02/08/18 09:30 02/07/18 02/08/18 02/09/18 05:59 05:59 05:59 Intake Total 1230 650 Output Total 1005 225 Balance 225 425 Physical Exam - Physical Exam General Appearance: WD/WN, alert, no apparent distress EENT: No scleral icterus (R), No scleral icterus (L) Respiratory: No respiratory distress, No accessory muscle use Cardiac/Chest: normal peripheral pulses, regular rate, rhythm, No edema Extremities: non-tender, No pedal edema, No calf tenderness, No swelling, No Sarbjit's sign Neuro/Psych: alert, normal mood/affect, motor weakness ICD10 Worksheet Patient Problems: Problems Problem Status Onset Cerebrovascular accident (CVA) involving left cerebral hemisphere Acute
[2018-02-08] MEDS: DOCUSATE SODIUM 100 MG CAP PO SCH (12:33)
[2018-02-08] MEDS: DONEPEZIL HCL 5 MG TAB PO SCH (20:56)
[2018-02-08] MEDS: INSULIN GLARGINE 100 UNITS/ML UNIT SC SCH (21:11)
[2018-02-08] MEDS ORDERED: CEPACOL LOZENGE PO PRN (22:52)
[2018-02-09] MEDS: INSULIN LISPRO 100 UNIT/ML SC SCH ×6 (09:12→17:36)
[2018-02-09] MEDS: metFORMIN HCL 850 MG TAB PO SCH (09:13)
[2018-02-09] MEDS: ENOXAPARIN 40 MG/0.4 ML SYR SC SCH (09:16)
[2018-02-09] MEDS: ATORVASTATIN CALCIUM 40 MG TAB PO SCH (09:18)
[2018-02-09] MEDS: ASPIRIN EC 81 MG TAB PO SCH (09:18)
[2018-02-09] MEDS: CETIRIZINE 10 MG TAB PO SCH (09:18)
[2018-02-09] MEDS: CLOPIDOGREL BISULFATE 75 MG TAB PO SCH (09:19)
[2018-02-09] MEDS: FLUoxetine 10 MG CAP PO SCH (09:19)
[2018-02-09] MEDS: GABAPENTIN 100 MG CAP PO SCH ×3 (09:19→21:11)
[2018-02-09] MEDS: SOTALOL HCL 80 MG TAB PO SCH ×2 (09:22→21:42)
[2018-02-09] MEDS: LISINOPRIL 20 MG TAB PO SCH (09:22)
[2018-02-09] MEDS: TAMSULOSIN HCL 0.4 MG CAP PO SCH (09:23)
--- NOTE | 2018-02-09 12:51 | SOAPPROG ---
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 * Initial functional independence measure 38 on 02/06/2018. Maximal assist for bed mobility, 2 person transfer with moderate to maximal assist. Minimal assist for grooming and hygiene for seated balance. Upper body dressing requires maximal assist with cues, lower body dressing requires total assist. He can stand at the rail with 2 person assist. Maximal assist and cues for bathing. * Continue PT and OT to optimize mobility and activities of daily living to the standby assist or contact guard assist level. Dysarthria and history of dementia. * Working memory is very impaired. Also with decreased attention, organization , initiation and problem-solving. * SLUMS in the hospital was . * Continue Speech and Language Pathology. Continue donepezil. Secondary prevention of cerebrovascular accident/neuro recovery. * Continue aspirin, clopidogrel, blood pressure and lipid control. * Initiate fluoxetine for neuro recovery at 10 mg daily beginning 02/05/2018. Titrate to 20 mg p.o. daily starting 02/10/2018. Hypertension. Continue lisinopril. Blood pressure is elevated. * Added amlodipine 2.5 mg at bedtime starting 02/05/2018 but had low blood pressure at HS 02/05/2018 so discontinued amlodipine. * Blood pressure elevated in the morning 02/06/2018. Resume amlodipine 2.5 mg q.day morning dosing. Diabetes mellitus type 2. * Increase metformin from 500 mg p.o. b.i.d to 850 mg BID starting 02/05/2018. Titrate further to 1000 mg twice daily starting 02/10/2018. * On insulin glargine at 6 units twice daily; fasting blood sugar lower than necessary 02/06/2018. Change to 8 units at HS starting 02/06/2018.. Continue sliding scale with insulin lispro and adjust medications as needed. Insulin lispro 2 units three times daily with meals started 02/08/2018. * Per hospital discharge information, his hemoglobin A1c was 8.5%.Given his age and comorbidities, a reasonable goal would be 8%. Weight loss in recent months. * Related to influenza, shingles and secondary Staphylococcus infection. * Consultation with dietitian. Bowel and bladder incontinence. * Continue condom catheter at night. * Scheduled toileting. * Bladder scan to rule out urinary retention. Urinary incontinence might be related to donepezil. If there is no urinary retention, consider discussion with patient and family regarding risks and benefits of donepezil. Dyslipidemia. Continue atorvastatin. History of cardiac dysrhythmia, unclear what the rhythm abnormality was. He is on sotalol, which also contributes to blood pressure control. Risk for QT prolongation with concurrent donepezil and sotalol. Reviewed E[facility] from [facility]. No QT prolongation. Possible peripheral vascular disease with cyanotic and cold feet. Secondary prevention for cerebrovascular accident and coronary artery disease will also serve to prevent worsening of circulation to his lower extremities. Cough, due to seasonal allergies. Continue cetirizine. Chronic leukocytosis. He had no signs or symptoms of infection in the hospital. The differential was primary lymphocytes, and the hospital physicians queried whether he has an underlying leukemia, and per hospital records, the reported that he had a long history of leukocytosis, had seen oncologist in [place], and no further evaluation or treatment was advised at that time. Spinal stenosis. He has been placed on spinal precautions. It is unclear if these are truly necessary, but it is worthwhile to prevent any complications from his L4-L5 grade 1 degenerative spondylolisthesis and severe acquired central canal stenosis. Prophylaxis. He is at elevated risk for DVT given his age and hemiparesis. Will initiate enoxaparin 40 mg subcutaneous daily and will provide sequential compression devices to his legs at night. DISPOSITION: Primary residence is in [place] where there is no local family. He and his spent considerable time in [place] at their son's home with multiple steps to enter and steps to the bedroom in the house. At present goal is either sufficient independence to return to [place] or ability to climb stairs for return to son's home in [place]. Discharge date set for 2017. FOLLOWUP: He had followup advised in 2 weeks with the neurologist in [place], Dr. Mcclure, though it seems likely that he will seek followup with a neurologist in [place] where his son lives. PRIMARY CARE PROVIDER: Mariela Matthews MD, in [place]. 02/09/18 12:47 Subjective: Complains of intermittent left thigh pain. Happens once moving through certain positions. 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 He reports a little better today. Otherwise without complaints, other than frustration regarding the slow rate of his progress. Objective: Vital Signs Temp Pulse Resp BP Pulse Ox 36.5 C 60 15 118/82 H 96 02/09/18 08:00 02/09/18 09:22 02/09/18 08:00 02/09/18 09:22 02/09/18 08:00 02/08/18 02/09/18 02/10/18 05:59 05:59 05:59 Intake Total 650 870 440 Output Total 225 800 550 Balance 425 70 -110 Physical Exam - Physical Exam General Appearance: WD/WN, alert, no apparent distress Respiratory: normal breath sounds, No crackles, No rhonchi, No wheezing Cardiac/Chest: regular rate, rhythm, systolic murmur Skin: normal color, warm/dry Neuro/Psych: alert, normal mood/affect, oriented x 3, motor weakness (Left upper and lower extremities) ICD10 Worksheet Patient Problems: Problems Problem Status Onset Cerebrovascular accident (CVA) involving left cerebral hemisphere Acute - ICD10 Problem Qualifiers (1) Cerebrovascular accident (CVA) involving left cerebral hemisphere
[2018-02-09] MEDS: metFORMIN HCL 500 MG TAB PO SCH (17:38)
[2018-02-09] MEDS: INSULIN GLARGINE 100 UNITS/ML UNIT SC SCH (21:10)
[2018-02-09] MEDS: DONEPEZIL HCL 5 MG TAB PO SCH (21:11)
[2018-02-10] MEDS: ENOXAPARIN 40 MG/0.4 ML SYR SC SCH (07:57)
[2018-02-10] MEDS: DOCUSATE SODIUM 100 MG CAP PO SCH (07:58)
[2018-02-10] MEDS: ASPIRIN EC 81 MG TAB PO SCH (07:58)
[2018-02-10] MEDS: metFORMIN HCL 500 MG TAB PO SCH ×2 (07:58→18:26)
[2018-02-10] MEDS: ATORVASTATIN CALCIUM 40 MG TAB PO SCH (07:59)
[2018-02-10] MEDS: GABAPENTIN 100 MG CAP PO SCH ×3 (07:59→21:25)
[2018-02-10] MEDS: CLOPIDOGREL BISULFATE 75 MG TAB PO SCH (08:00)
[2018-02-10] MEDS: FLUoxetine 20 MG CAP PO SCH (08:00)
[2018-02-10] MEDS: CETIRIZINE 10 MG TAB PO SCH (08:00)
[2018-02-10] MEDS: LISINOPRIL 20 MG TAB PO SCH (08:06)
[2018-02-10] MEDS: SOTALOL HCL 80 MG TAB PO SCH ×2 (08:07→21:25)
[2018-02-10] MEDS: INSULIN LISPRO 100 UNIT/ML SC SCH ×6 (08:14→18:18)
[2018-02-10] MEDS: TAMSULOSIN HCL 0.4 MG CAP PO SCH (09:47)
--- NOTE | 2018-02-10 10:45 | SOAPPROG ---
CASIE Progress Note Assessment/Plan: 82-year-old male status post a right posterior internal capsule stroke diagnosed 01/30/2018, impairments in mobility, self-care, including dysarthria and history of dementia. Today's update: Again adjusting diabetes regimen now to be 9 units of glargine daily with 3 units of short-acting insulin before meals. Continuing low-dose sliding scale insulin. Glucose is still been a bit high but no episodes of hypoglycemia. Using caution since he is also going up on the dose of metformin. Back pain was not a concern to the patient today, sharing imaging with him of his acute stroke. A total of 35 min was spent on the floor in the care of the patient, the majority of which was spent in counseling and coordination of care regarding discussion of stroke recovery prognosis and expectations after rehab. Additional issues reviewed but not changed today include secondary prevention of stroke not otherwise discussed above, weight loss, bowel and bladder incontinence , cardiac dysrhythmia, risk of QT prolongation, possible peripheral vascular disease, cough, chronic leukocytosis, DVT prophylaxis. 02/07/18 16:02 02/08/18 11:46 02/10/18 10:42 Subjective: Chief complaint: Rehab prognosis No acute events overnight. Patient denies any new shortness of breath or chest pain, no new numbness, tingling, or weakness. He is asking today about his prognosis after stroke, I emphasized that it is a long process and that he will not be fully recovered by the time he leaves the hospital. Anticipate that he will need some sort of assistance when he leaves. He endorsed that he uses his left hand which is his affected hand, more for tasks having to do with mechanical projects. I counseled him that working with the left hand on skilled activities will help with recovery. He asked about strengthening exercises and I counseled him that strengthening exercises are not necessarily going to be as helpful as skilled activities. Therapy will continue after he discharges from acute rehab. Objective: Vital Signs Temp Pulse Resp BP Pulse Ox 36.8 C 64 18 122/74 H 99 02/09/18 20:00 02/10/18 08:07 02/09/18 20:00 02/10/18 08:07 02/09/18 20:00 02/09/18 02/10/18 02/11/18 05:59 05:59 05:59 Intake Total 870 916 Output Total 800 925 100 Balance 70 -9 -100 Physical Exam - Physical Exam General Appearance: WD/WN, alert, no apparent distress EENT: No scleral icterus (R), No scleral icterus (L) Respiratory: No respiratory distress, No accessory muscle use Cardiac/Chest: normal peripheral pulses, regular rate, rhythm, No edema Skin: normal color, warm/dry, No cyanosis, No diaphoresis Extremities: non-tender, No pedal edema, No calf tenderness, No swelling Neuro/Psych: alert, normal mood/affect, other (Left-sided hemiparesis, 0/5 movement in his left lower limb, 4/5 in his finger flexors, extensors, wrist extensors, with 3/5 at the elbow flexor. 5/5 on the right) ICD10 Worksheet Patient Problems: Problems Problem Status Onset Cerebrovascular accident (CVA) involving left cerebral hemisphere Acute
[2018-02-10] MEDS: DONEPEZIL HCL 5 MG TAB PO SCH (21:25)
[2018-02-10] MEDS: INSULIN GLARGINE 100 UNITS/ML UNIT SC SCH (21:26)
[2018-02-11] MEDS: INSULIN LISPRO 100 UNIT/ML SC SCH ×6 (09:01→18:13)
[2018-02-11] MEDS: metFORMIN HCL 500 MG TAB PO SCH ×2 (09:02→18:13)
[2018-02-11] MEDS: ATORVASTATIN CALCIUM 40 MG TAB PO SCH (09:04)
[2018-02-11] MEDS: FLUoxetine 20 MG CAP PO SCH (09:04)
[2018-02-11] MEDS: GABAPENTIN 100 MG CAP PO SCH ×3 (09:04→21:14)
[2018-02-11] MEDS: ENOXAPARIN 40 MG/0.4 ML SYR SC SCH (09:04)
[2018-02-11] MEDS: CETIRIZINE 10 MG TAB PO SCH (09:05)
[2018-02-11] MEDS: ASPIRIN EC 81 MG TAB PO SCH (09:05)
[2018-02-11] MEDS: CLOPIDOGREL BISULFATE 75 MG TAB PO SCH (09:05)
[2018-02-11] MEDS: SOTALOL HCL 80 MG TAB PO SCH ×2 (09:06→21:13)
[2018-02-11] MEDS: TAMSULOSIN HCL 0.4 MG CAP PO SCH (09:06)
[2018-02-11] MEDS: LISINOPRIL 20 MG TAB PO SCH (09:09)
--- NOTE | 2018-02-11 12:47 | SOAPPROG ---
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 * Initial functional independence measure 38 on 02/06/2018. Maximal assist for bed mobility, 2 person transfer with moderate to maximal assist. Minimal assist for grooming and hygiene for seated balance. Upper body dressing requires maximal assist with cues, lower body dressing requires total assist. He can stand at the rail with 2 person assist. Maximal assist and cues for bathing. * Continue PT and OT to optimize mobility and activities of daily living to the standby assist or contact guard assist level. Dysarthria and history of dementia. * Working memory is very impaired. Also with decreased attention, organization , initiation and problem-solving. * SLUMS in the hospital was . * Continue Speech and Language Pathology. Continue donepezil. Secondary prevention of cerebrovascular accident/neuro recovery. * Continue aspirin, clopidogrel, blood pressure and lipid control. * Initiate fluoxetine for neuro recovery at 10 mg daily beginning 02/05/2018. Titrate to 20 mg p.o. daily starting 02/10/2018. Hypertension. Continue lisinopril. Blood pressure is elevated. * Added amlodipine 2.5 mg at bedtime starting 02/05/2018 but had low blood pressure at HS 02/05/2018 so discontinued amlodipine. * Blood pressure elevated in the morning 02/06/2018. Resume amlodipine 2.5 mg q.day morning dosing. Diabetes mellitus type 2. * Increase metformin from 500 mg p.o. b.i.d to 850 mg BID starting 02/05/2018. Titrated further to 1000 mg twice daily starting 02/10/2018. * Continue insulin, currently with glargine 9 units at bedtime, lispro sliding scale, and lispro 3 units before meals. * Per hospital discharge information, his hemoglobin A1c was 8.5%.Given his age and comorbidities, a reasonable goal would be 8%. Weight loss in recent months. * Related to influenza, shingles and secondary Staphylococcus infection. * Consultation with dietitian. Bowel and bladder incontinence. * Continue condom catheter at night. * Scheduled toileting. * Bladder scan to rule out urinary retention. Urinary incontinence might be related to donepezil. If there is no urinary retention, consider discussion with patient and family regarding risks and benefits of donepezil. Dyslipidemia. Continue atorvastatin. History of cardiac dysrhythmia, unclear what the rhythm abnormality was. He is on sotalol, which also contributes to blood pressure control. Risk for QT prolongation with concurrent donepezil and sotalol. Reviewed EKG from [facility]. No QT prolongation. Possible peripheral vascular disease with cyanotic and cold feet. Secondary prevention for cerebrovascular accident and coronary artery disease will also serve to prevent worsening of circulation to his lower extremities. Cough, due to seasonal allergies. Continue cetirizine. Chronic leukocytosis. He had no signs or symptoms of infection in the hospital. The differential was primary lymphocytes, and the hospital physicians queried whether he has an underlying leukemia, and per hospital records, the reported that he had a long history of leukocytosis, had seen oncologist in [place], and no further evaluation or treatment was advised at that time. Spinal stenosis. He has been placed on spinal precautions. It is unclear if these are truly necessary, but it is worthwhile to prevent any complications from his L4-L5 grade 1 degenerative spondylolisthesis and severe acquired central canal stenosis. Prophylaxis. He is at elevated risk for DVT given his age and hemiparesis. Will initiate enoxaparin 40 mg subcutaneous daily and will provide sequential compression devices to his legs at night. DISPOSITION: Primary residence is in [place] where there is no local family. He and his spent considerable time in [place] at their son's home with multiple steps to enter and steps to the bedroom in the house. At present goal is either sufficient independence to return to [place] or ability to climb stairs for return to son's home in [place]. Discharge date set for 2017. FOLLOWUP: He had followup advised in 2 weeks with the neurologist in [place], Dr. Mcclure, though it seems likely that he will seek followup with a neurologist in [place] where his son lives. PRIMARY CARE PROVIDER: Mariela Matthews MD, in [place]. 02/11/18 12:43 Subjective: No complaints this morning. No cough or dyspnea, no fevers or chills, not in pain. Objective: Vital Signs Temp Pulse Resp BP Pulse Ox 36.4 C 60 17 110/60 93 02/10/18 20:00 02/11/18 09:06 02/10/18 20:00 02/11/18 09:09 02/10/18 20:00 02/10/18 02/11/18 02/12/18 05:59 05:59 05:59 Intake Total 916 236 240 Output Total 033 959 300 Balance -9 -214 -60 Physical Exam - Physical Exam General Appearance: WD/WN, alert, no apparent distress Respiratory: normal breath sounds, No crackles, No rhonchi, No wheezing Cardiac/Chest: regular rate, rhythm, No edema, No diastolic murmur, No systolic murmur Skin: normal color, warm/dry Neuro/Psych: alert, normal mood/affect, oriented x 3, motor weakness (Lesions to the left while seated upright and does not self corrects for loss of balance to the left.) ICD10 Worksheet Patient Problems: Problems Problem Status Onset Cerebrovascular accident (CVA) involving left cerebral hemisphere Acute - ICD10 Problem Qualifiers (1) Cerebrovascular accident (CVA) involving left cerebral hemisphere
[2018-02-11] MEDS: DONEPEZIL HCL 5 MG TAB PO SCH (21:13)
[2018-02-11] MEDS: INSULIN GLARGINE 100 UNITS/ML UNIT SC SCH (21:13)
[2018-02-12] MEDS: INSULIN LISPRO 100 UNIT/ML SC SCH ×6 (08:22→17:06)
[2018-02-12] MEDS: ENOXAPARIN 40 MG/0.4 ML SYR SC SCH (08:25)
[2018-02-12] MEDS: DOCUSATE SODIUM 100 MG CAP PO SCH (08:25)
[2018-02-12] MEDS: ATORVASTATIN CALCIUM 40 MG TAB PO SCH (08:25)
[2018-02-12] MEDS: SOTALOL HCL 80 MG TAB PO SCH ×2 (08:26→20:59)
[2018-02-12] MEDS: CLOPIDOGREL BISULFATE 75 MG TAB PO SCH (08:26)
[2018-02-12] MEDS: TAMSULOSIN HCL 0.4 MG CAP PO SCH (08:26)
[2018-02-12] MEDS: ASPIRIN EC 81 MG TAB PO SCH (08:26)
[2018-02-12] MEDS: GABAPENTIN 100 MG CAP PO SCH ×3 (08:26→20:59)
[2018-02-12] MEDS: LISINOPRIL 20 MG TAB PO SCH (08:26)
[2018-02-12] MEDS: FLUoxetine 20 MG CAP PO SCH (08:26)
[2018-02-12] MEDS: metFORMIN HCL 500 MG TAB PO SCH ×2 (08:26→17:05)
[2018-02-12] MEDS: CETIRIZINE 10 MG TAB PO SCH (08:26)
--- NOTE | 2018-02-12 14:37 | SOAPPROG ---
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 * Initial functional independence measure 38 on 02/06/2018. Maximal assist for bed mobility, 2 person transfer with moderate to maximal assist. Minimal assist for grooming and hygiene for seated balance. Upper body dressing requires maximal assist with cues, lower body dressing requires total assist. He can stand at the rail with 2 person assist. Maximal assist and cues for bathing. * Continue PT and OT to optimize mobility and activities of daily living to the standby assist or contact guard assist level. Dysarthria and history of dementia. * Working memory is very impaired. Also with decreased attention, organization , initiation and problem-solving. * SLUMS in the hospital was . * Continue Speech and Language Pathology. Continue donepezil. Secondary prevention of cerebrovascular accident/neuro recovery. * Continue aspirin, clopidogrel, blood pressure and lipid control. * Initiate fluoxetine for neuro recovery at 10 mg daily beginning 02/05/2018. Titrated to 20 mg p.o. daily starting 02/10/2018. Hypertension. Continue lisinopril 20 mg QD and amlodipine 2.5 mg QD. Adequate control. Diabetes mellitus type 2. * Increase metformin from 500 mg p.o. b.i.d to 850 mg BID starting 02/05/2018. Titrated further to 1000 mg twice daily starting 02/10/2018. * Continue insulin, currently with glargine 9 units at bedtime, lispro sliding scale, and lispro 3 units before meals. * Per hospital discharge information, his hemoglobin A1c was 8.5%.Given his age and comorbidities, a reasonable goal would be 8%. Weight loss in recent months. * Related to influenza, shingles and secondary Staphylococcus infection. * Consultation with dietitian. Bowel and bladder incontinence. * Continue condom catheter at night. * Scheduled toileting. * Bladder scan to rule out urinary retention. Urinary incontinence might be related to donepezil. * No urinary retention. Consider discussion with family regarding discontinuation of donepezil, though it may well be improving his cognition. Dyslipidemia. Continue atorvastatin. History of cardiac dysrhythmia, unclear what the rhythm abnormality was. He is on sotalol, which also contributes to blood pressure control. Risk for QT prolongation with concurrent donepezil and sotalol. Reviewed EKG from [facility] [place]. No QT prolongation. Possible peripheral vascular disease with cyanotic and cold feet. Secondary prevention for cerebrovascular accident and coronary artery disease will also serve to prevent worsening of circulation to his lower extremities. Cough, due to seasonal allergies. Continue cetirizine. Chronic leukocytosis. He had no signs or symptoms of infection in the hospital. The differential was primary lymphocytes, and the hospital physicians queried whether he has an underlying leukemia, and per hospital records, the reported that he had a long history of leukocytosis, had seen oncologist in [place], and no further evaluation or treatment was advised at that time. Spinal stenosis. He has been placed on spinal precautions. It is unclear if these are truly necessary, but it is worthwhile to prevent any complications from his L4-L5 grade 1 degenerative spondylolisthesis and severe acquired central canal stenosis. * Back pain improved with initiation of low-dose gabapentin. Prophylaxis. He is at elevated risk for DVT given his age and hemiparesis. Will initiate enoxaparin 40 mg subcutaneous daily and will provide sequential compression devices to his legs at night. DISPOSITION: Primary residence is in [place] where there is no local family. He and his spent considerable time in [place] at their son's home with multiple steps to enter and steps to the bedroom in the house. At present goal is either sufficient independence to return to [place] or ability to climb stairs for return to son's home in [place]. Discharge date set for 2017. FOLLOWUP: He had followup advised in 2 weeks with the neurologist in [place], Dr. Mcclure, though it seems likely that he will seek followup with a neurologist in [place] where his son lives. PRIMARY CARE PROVIDER: Mariela Matthews MD, in [place]. 02/12/18 14:33 Subjective: Complains that he keeps falling over when he sits up. Otherwise without complaints. No fevers or chills, no cough or dyspnea. Not in pain. Denies depression. Objective: Vital Signs Temp Pulse Resp BP Pulse Ox 36.4 C 60 14 130/70 H 94 02/12/18 05:36 02/12/18 05:36 02/12/18 05:36 02/12/18 05:43 02/12/18 05:36 02/11/18 02/12/18 02/13/18 05:59 05:59 05:59 Intake Total 236 1350 Output Total 450 750 350 Balance -214 600 -350 Physical Exam - Physical Exam General Appearance: WD/WN, alert, no apparent distress Respiratory: normal breath sounds, No crackles, No rhonchi, No wheezing Cardiac/Chest: regular rate, rhythm, systolic murmur, No edema, No diastolic murmur Skin: normal color, warm/dry Neuro/Psych: alert, normal mood/affect, motor weakness (Left lower and upper extremities) ICD10 Worksheet Patient Problems: Problems Problem Status Onset Cerebrovascular accident (CVA) involving left cerebral hemisphere Acute - ICD10 Problem Qualifiers (1) Cerebrovascular accident (CVA) involving left cerebral hemisphere
[2018-02-12] MEDS: DONEPEZIL HCL 5 MG TAB PO SCH (20:59)
[2018-02-12] MEDS: INSULIN GLARGINE 100 UNITS/ML UNIT SC SCH (21:08)
[2018-02-13] MEDS: ACETAMINOPHEN 325 MG TAB PO PRN (05:06)
[2018-02-13] MEDS: INSULIN LISPRO 100 UNIT/ML SC SCH ×6 (08:21→17:13)
[2018-02-13] MEDS: metFORMIN HCL 500 MG TAB PO SCH ×2 (08:22→17:13)
[2018-02-13] MEDS: ENOXAPARIN 40 MG/0.4 ML SYR SC SCH (08:22)
[2018-02-13] MEDS: ATORVASTATIN CALCIUM 40 MG TAB PO SCH (09:26)
[2018-02-13] MEDS: ASPIRIN EC 81 MG TAB PO SCH (09:26)
[2018-02-13] MEDS: TAMSULOSIN HCL 0.4 MG CAP PO SCH (09:27)
[2018-02-13] MEDS: CLOPIDOGREL BISULFATE 75 MG TAB PO SCH (09:27)
[2018-02-13] MEDS: GABAPENTIN 100 MG CAP PO SCH ×3 (09:27→21:14)
[2018-02-13] MEDS: CETIRIZINE 10 MG TAB PO SCH (09:27)
[2018-02-13] MEDS: FLUoxetine 20 MG CAP PO SCH (09:27)
[2018-02-13] MEDS: LISINOPRIL 20 MG TAB PO SCH (09:40)
[2018-02-13] MEDS: SOTALOL HCL 80 MG TAB PO SCH ×2 (09:40→21:14)
--- NOTE | 2018-02-13 09:57 | SOAPPROG ---
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 * Initial functional independence measure 38 on 02/06/2018, improved to 45 as of . Moderate to maximal assist for transfers. Decreased carry-over of strategies. Moderate to maximal assistance for upper body dressing and maximal assistance for lower body dressing. Total assist for shower transfer. 2 person assist to transfer to commode. She has movement of the left arm but has left hemineglect and no sensation in the left arm. * Continue PT and OT to optimize mobility and activities of daily living to the standby assist or contact guard assist level. Dysarthria and history of dementia. * Working memory is very impaired. Also with decreased attention, organization , initiation and problem-solving. * SLUMS in the hospital was 08/07. * Continue Speech and Language Pathology. Continue donepezil. Secondary prevention of cerebrovascular accident/neuro recovery. * Continue aspirin, clopidogrel, blood pressure and lipid control. * Initiate fluoxetine for neuro recovery at 10 mg daily beginning 02/05/2018. Titrated to 20 mg p.o. daily starting 02/10/2018. Hypertension. Continue lisinopril 20 mg QD and amlodipine 2.5 mg QD. Adequate control. Diabetes mellitus type 2. * Increase metformin from 500 mg p.o. b.i.d to 850 mg BID starting 02/05/2018. Titrated further to 1000 mg twice daily starting 02/10/2018. * Continue insulin, currently with glargine 9 units at bedtime, lispro sliding scale, and lispro 3 units before meals. * Per hospital discharge information, his hemoglobin A1c was 8.5%.Given his age and comorbidities, a reasonable goal would be 8%. Weight loss in recent months. * Related to influenza, shingles and secondary Staphylococcus infection. * Consultation with dietitian. Bowel and bladder incontinence. * Continue condom catheter at night. * Scheduled toileting. * No urinary retention. Consider discussion with family regarding discontinuation of donepezil, though it may well be improving his cognition. Dyslipidemia. Continue atorvastatin. History of cardiac dysrhythmia, unclear what the rhythm abnormality was. He is on sotalol, which also contributes to blood pressure control. Risk for QT prolongation with concurrent donepezil and sotalol. Reviewed EKG from [facility]. No QT prolongation. Possible peripheral vascular disease with cyanotic and cold feet. Secondary prevention for cerebrovascular accident and coronary artery disease will also serve to prevent worsening of circulation to his lower extremities. Cough, due to seasonal allergies. Continue cetirizine. Chronic leukocytosis. He had no signs or symptoms of infection in the hospital. The differential was primary lymphocytes, and the hospital physicians queried whether he has an underlying leukemia, and per hospital records, the reported that he had a long history of leukocytosis, had seen oncologist in [place], and no further evaluation or treatment was advised at that time. Spinal stenosis. He has been placed on spinal precautions. It is unclear if these are truly necessary, but it is worthwhile to prevent any complications from his L4-L5 grade 1 degenerative spondylolisthesis and severe acquired central canal stenosis. * Back pain improved with initiation of low-dose gabapentin. Prophylaxis. He is at elevated risk for DVT given his age and hemiparesis. Will initiate enoxaparin 40 mg subcutaneous daily and will provide sequential compression devices to his legs at night. DISPOSITION: Attended staffing, 15 min. Discussed with case management, nursing, PT, OT, SHINGLE CARRIER. Limited discharge disposition. No local family support at his home in [place], and multiple stairs to enter and then live at son's home in [place]. manager desktop considering assisted facility discharge tentative discharge date of 02/19/2018. FOLLOWUP: He had followup advised in 2 weeks with the neurologist in [place], Dr. Mcclure, though it seems likely that he will seek followup with a neurologist in [place] where his son lives. PRIMARY CARE PROVIDER: Mariela Matthews MD, in [place]. 02/13/18 13:12 Subjective: Reports that he still finds himself falling over to left and backwards. He does not have awareness min begin to fall and is unable to correct. He is frustrated by his slow progress. Otherwise without complaints. No cough or dyspnea, no fevers or chills, not in pain. Objective: Vital Signs Temp Pulse Resp BP Pulse Ox 36.6 C 58 L 15 138/66 H 94 02/13/18 05:43 02/13/18 09:40 02/13/18 05:43 02/13/18 09:40 02/13/18 05:43 02/12/18 02/13/18 02/14/18 05:59 05:59 05:59 Intake Total 1350 1171 360 Output Total 750 1050 Balance 600 121 360 - Time Spent With Patient Time Spent With Patient: Greater than 35 min floor time today, including more than 50% of time in coordination of care during staffing meeting, and counseling patient. Physical Exam - Physical Exam General Appearance: WD/WN, alert, no apparent distress Respiratory: normal breath sounds, No crackles, No rhonchi, No wheezing Cardiac/Chest: regular rate, rhythm, No edema Skin: normal color, warm/dry Neuro/Psych: alert, normal mood/affect, oriented x 3, motor weakness (Left upper and lower extremities) ICD10 Worksheet Patient Problems: Problems Problem Status Onset Cerebrovascular accident (CVA) involving left cerebral hemisphere Acute - ICD10 Problem Qualifiers (1) Cerebrovascular accident (CVA) involving left cerebral hemisphere
[2018-02-13] MEDS: DONEPEZIL HCL 5 MG TAB PO SCH (21:15)
[2018-02-13] MEDS: INSULIN GLARGINE 100 UNITS/ML UNIT SC SCH (21:16)
[2018-02-14] MEDS: ENOXAPARIN 40 MG/0.4 ML SYR SC SCH (08:52)
[2018-02-14] MEDS: GABAPENTIN 100 MG CAP PO SCH ×3 (08:53→21:15)
[2018-02-14] MEDS: SOTALOL HCL 80 MG TAB PO SCH ×2 (08:53→21:15)
[2018-02-14] MEDS: FLUoxetine 20 MG CAP PO SCH (08:53)
[2018-02-14] MEDS: ATORVASTATIN CALCIUM 40 MG TAB PO SCH (08:53)
[2018-02-14] MEDS: DOCUSATE SODIUM 100 MG CAP PO SCH (08:53)
[2018-02-14] MEDS: LISINOPRIL 20 MG TAB PO SCH (08:53)
[2018-02-14] MEDS: CLOPIDOGREL BISULFATE 75 MG TAB PO SCH (08:53)
[2018-02-14] MEDS: ASPIRIN EC 81 MG TAB PO SCH (08:53)
[2018-02-14] MEDS: metFORMIN HCL 500 MG TAB PO SCH ×2 (08:53→16:54)
[2018-02-14] MEDS: INSULIN LISPRO 100 UNIT/ML SC SCH ×6 (08:53→16:56)
[2018-02-14] MEDS: CETIRIZINE 10 MG TAB PO SCH ×2 (08:53→21:16)
[2018-02-14] MEDS: TAMSULOSIN HCL 0.4 MG CAP PO SCH (08:53)
--- NOTE | 2018-02-14 15:03 | HOSPPROG ---
Hospitalist Progress Note Assessment/Plan: Assessment: 82 yo M p/w CVA Plan: # CVA, right internal capsule. Residual left upper and lower extremity hemiparesis in a [id number] man. -patient requesting additional OT work w/ RUE given that it will require strengthening/dexterity improvement for self-feeding and Rx admin -son requesting PM spacing between therapy sessions of approx 1-1.5hrs so that patient can rest/nap (he requires afternoon naps PRIOR to CVA) and optimize energy at therapy sessions -cont ASA, plavix, statin, prozac # Dysarthria and history of dementia. Working memory is very impaired. Also with decreased attention, organization, initiation and problem-solving. -Continue donepezil # Chronic Hypertension. Continue lisinopril 20 mg QD and amlodipine 2.5 mg QD. Adequate control. # Diabetes mellitus type 2. Chronic, patient was dosing bid lantus HELP DESK CONSULTANT, currently HS and will uptitrate to 10u given gluc 150-200 -cont mealtime bolus + metformin -patient/ will require insulin admin teaching w/ RN and OT, as patient will only be able to admin w/ RUE # Bowel and bladder incontinence. Unclear etiology, cont condom cath HS, cont attempts to physically assist patient when he has urge # History of cardiac dysrhythmia, unclear what the rhythm abnormality was. He is on sotalol, which also contributes to blood pressure control. # Possible peripheral vascular disease with cyanotic and cold feet. Secondary prevention for cerebrovascular accident and coronary artery disease will also serve to prevent worsening of circulation to his lower extremities. # Suspected post-nasal drip. Nocturnal cough improved w/ addition of anti- histamine, but now patient w/ daytime rhinorrhea, which may be related, or may be 2/2 seasonal allergies -trial daytime flonase 2 puffs, cetirizine HS # Spinal stenosis. He has been placed on spinal precautions. It is unclear if these are truly necessary, but it is worthwhile to prevent any complications from his L4-L5 grade 1 degenerative spondylolisthesis and severe acquired central canal stenosis. -Back pain improved with initiation of low-dose gabapentin. Diet. ADA PPx. Lovenox 40 Code. Full Dispo. Patient and son request to be included in/notified of team care conference this week, as son is performing the majority of post-discharge planning for the family and he would like to begin working on coordinating all of the details. 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 Subjective: rhinorrhea throughout daytime, difficulty w/ feeding self Objective: Vital Signs Temp Pulse Resp BP Pulse Ox 36.4 C 58 L 16 130/65 H 94 02/14/18 06:07 02/14/18 06:07 02/14/18 06:07 02/14/18 06:07 02/14/18 06:07 02/13/18 02/14/18 02/15/18 05:59 05:59 05:59 Intake Total 1171 900 240 Output Total 1050 850 375 Balance 121 50 -135 - Physical Exam Constitutional: no apparent distress, appears nourished, not in pain, No uncomfortable Cardiovascular: systolic murmur (II/ at apex, III/ at sternum) Respiratory: no respiratory distress, no rales or rhonchi, clear to auscultation Gastrointestinal: normoactive bowel sounds, soft, non-tender abdomen, no palpable masses, No distension Neurologic: AAOx3, sensation intact bilaterally, weakness (only movement in L toes, prox L shoulder movement and reduced distally), facial droop (L mouth) Psychiatric: interacting appropriately, not anxious, not encephalopathic, thought process linear ICD10 Worksheet Patient Problems: Problems Problem Status Onset Cerebrovascular accident (CVA) involving left cerebral hemisphere Acute
[2018-02-14] MEDS: FLUTICASONE NASAL 120 SPRAYS/16 GM MDI EACHNARE SCH (16:54)
[2018-02-14] MEDS: INSULIN GLARGINE 100 UNITS/ML UNIT SC SCH (21:16)
[2018-02-14] MEDS: DONEPEZIL HCL 5 MG TAB PO SCH (21:16)
[2018-02-15] MEDS: metFORMIN HCL 500 MG TAB PO SCH ×2 (09:03→16:51)
[2018-02-15] MEDS: INSULIN LISPRO 100 UNIT/ML SC SCH ×6 (09:03→16:51)
[2018-02-15] MEDS: ASPIRIN EC 81 MG TAB PO SCH (09:10)
[2018-02-15] MEDS: CLOPIDOGREL BISULFATE 75 MG TAB PO SCH (09:10)
[2018-02-15] MEDS: SOTALOL HCL 80 MG TAB PO SCH ×2 (09:10→20:41)
[2018-02-15] MEDS: ENOXAPARIN 40 MG/0.4 ML SYR SC SCH (09:10)
[2018-02-15] MEDS: GABAPENTIN 100 MG CAP PO SCH ×3 (09:11→20:41)
[2018-02-15] MEDS: FLUTICASONE NASAL 120 SPRAYS/16 GM MDI EACHNARE SCH (09:11)
[2018-02-15] MEDS: ATORVASTATIN CALCIUM 40 MG TAB PO SCH (09:11)
[2018-02-15] MEDS: FLUoxetine 20 MG CAP PO SCH (09:11)
[2018-02-15] MEDS: TAMSULOSIN HCL 0.4 MG CAP PO SCH (09:11)
[2018-02-15] MEDS: LISINOPRIL 20 MG TAB PO SCH (09:11)
--- NOTE | 2018-02-15 12:52 | HOSPPROG ---
Hospitalist Progress Note Assessment/Plan: Assessment: 82 yo M p/w CVA Plan: # CVA, right internal capsule. Residual left upper and lower extremity hemiparesis in a [id number] man. 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 Working memory is very impaired. Also with decreased attention, organization, initiation and problem-solving. -Continue donepezil -patient able to carry on a fluent conversation today # Chronic Hypertension. Continue lisinopril 20 mg QD and amlodipine 2.5 mg QD. Adequate control. # Diabetes mellitus type 2. Chronic, patient was dosing bid lantus CURB HOP, currently HS uptitrated to 10u -cont mealtime bolus + metformin -patient/ will require insulin admin teaching w/ RN and OT, as patient will only be able to admin w/ RUE -FBG 107 (range 110-250) # Bowel and bladder incontinence. Unclear etiology, cont condom cath HS, cont attempts to physically assist patient when he has urge # History of cardiac dysrhythmia. Cont on home sotalol # Possible peripheral vascular disease with cyanotic and cold feet. Secondary prevention for cerebrovascular accident and coronary artery disease will also serve to prevent worsening of circulation to his lower extremities. # Suspected post-nasal drip. Nocturnal cough improved w/ addition of anti- histamine, but now patient w/ daytime rhinorrhea, which may be related, or may be 2/2 seasonal allergies -trial daytime flonase 2 puffs, cetirizine HS # Spinal stenosis. He has been placed on spinal precautions. It is unclear if these are truly necessary, but it is worthwhile to prevent any complications from his L4-L5 grade 1 degenerative spondylolisthesis and severe acquired central canal stenosis. -Back pain improved with initiation of low-dose gabapentin. Diet. ADA PPx. Lovenox 40 Code. Full Dispo. Patient and son request to be included in/notified of team care conference this week, as son is performing the majority of post-discharge planning for the family and he would like to begin working on coordinating all of the details. 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 Subjective: patient very appreciative of his attentive care during his stay Objective: Vital Signs Temp Pulse Resp BP Pulse Ox 36.6 C 61 16 120/58 L 95 02/15/18 08:00 02/15/18 08:00 02/15/18 08:00 02/15/18 08:00 02/15/18 08:00 02/14/18 02/15/18 02/16/18 05:59 05:59 05:59 Intake Total 900 850 380 Output Total 850 1575 425 Balance 50 -725 -45 - Physical Exam Constitutional: no apparent distress, not in pain, chronically ill appearing, No uncomfortable Cardiovascular: systolic murmur (III/ at RSB, I/ at apex), No irregularly irregular, No tachycardia, No edema Respiratory: no respiratory distress, no rales or rhonchi, clear to auscultation Gastrointestinal: normoactive bowel sounds, soft, non-tender abdomen, no palpable masses, No distension Neurologic: AAOx3, sensation intact bilaterally, weakness (0/5 LLE, 2/5 distal LUE, 2/5 L shoulder; 5/5 motor RUE/RLE), No facial droop (L mouth palsy) Psychiatric: interacting appropriately, not anxious, not encephalopathic, thought process linear ICD10 Worksheet Patient Problems: Problems Problem Status Onset Cerebrovascular accident (CVA) involving left cerebral hemisphere Acute
[2018-02-15] MEDS: DONEPEZIL HCL 5 MG TAB PO SCH (20:40)
[2018-02-15] MEDS: CETIRIZINE 10 MG TAB PO SCH (20:40)
[2018-02-15] MEDS: INSULIN GLARGINE 100 UNITS/ML UNIT SC SCH (21:16)
[2018-02-16] MEDS: ASPIRIN EC 81 MG TAB PO SCH (08:43)
[2018-02-16] MEDS: TAMSULOSIN HCL 0.4 MG CAP PO SCH (08:43)
[2018-02-16] MEDS: DOCUSATE SODIUM 100 MG CAP PO SCH (08:43)
[2018-02-16] MEDS: SOTALOL HCL 80 MG TAB PO SCH ×2 (08:44→21:29)
[2018-02-16] MEDS: metFORMIN HCL 500 MG TAB PO SCH ×2 (08:44→17:49)
[2018-02-16] MEDS: GABAPENTIN 100 MG CAP PO SCH ×3 (08:44→21:29)
[2018-02-16] MEDS: FLUoxetine 20 MG CAP PO SCH (08:47)
[2018-02-16] MEDS: CLOPIDOGREL BISULFATE 75 MG TAB PO SCH (08:47)
[2018-02-16] MEDS: LISINOPRIL 20 MG TAB PO SCH (08:47)
[2018-02-16] MEDS: ENOXAPARIN 40 MG/0.4 ML SYR SC SCH ×2 (08:48→10:27)
[2018-02-16] MEDS: INSULIN LISPRO 100 UNIT/ML SC SCH ×4 (08:49→18:05)
[2018-02-16] MEDS: FLUTICASONE NASAL 120 SPRAYS/16 GM MDI EACHNARE SCH (10:29)
--- NOTE | 2018-02-16 15:13 | SOAPPROG ---
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 * Initial functional independence measure 38 on 02/06/2018, improved to 45 as of . Moderate to maximal assist for transfers. Decreased carry-over of strategies. Moderate to maximal assistance for upper body dressing and maximal assistance for lower body dressing. Total assist for shower transfer. 2 person assist to transfer to commode. He has movement of the left arm but has left hemineglect and no sensation in the left arm. * Continue PT and OT to optimize mobility and activities of daily living to the standby assist or contact guard assist level. Dysarthria and history of dementia. * Working memory is very impaired. Also with decreased attention, organization , initiation and problem-solving. * SLUMS in the hospital was 08/07. * Continue Speech and Language Pathology. Continue donepezil. Secondary prevention of cerebrovascular accident/neuro recovery. * Continue aspirin, clopidogrel, blood pressure and lipid control. * Initiate fluoxetine for neuro recovery at 10 mg daily beginning 02/05/2018. Titrated to 20 mg p.o. daily starting 02/10/2018. Hypertension. Continue lisinopril 20 mg QD and amlodipine 2.5 mg QD. Adequate control. Diabetes mellitus type 2. * Increased metformin from 500 mg p.o. b.i.d to 850 mg BID starting 02/05/2018. Titrated further to 1000 mg twice daily starting 02/10/2018. * Blood sugars lower than necessary on several determinations yesterday, 2017. Reduced insulin glargine from 9 units at HS to 7 units at HS and eliminated scheduled insulin lispro 3 units prior to meals. Continue insulin lispro sliding scale. Continue to monitor. * Per hospital discharge information, his hemoglobin A1c was 8.5%.Given his age and comorbidities, a reasonable goal would be 8%. Weight loss in recent months. * Related to influenza, shingles and secondary Staphylococcus infection. * Consultation with dietitian. Bowel and bladder incontinence. * Continue condom catheter at night. * Scheduled toileting. * No urinary retention. Consider discussion with family regarding discontinuation of donepezil, though it may well be improving his cognition. Dyslipidemia. Continue atorvastatin. History of cardiac dysrhythmia, unclear what the rhythm abnormality was. He is on sotalol, which also contributes to blood pressure control. Risk for QT prolongation with concurrent donepezil and sotalol. Reviewed EKG from [facility]. No QT prolongation. Possible peripheral vascular disease with cyanotic and cold feet. Secondary prevention for cerebrovascular accident and coronary artery disease will also serve to prevent worsening of circulation to his lower extremities. Cough, due to seasonal allergies. Continue cetirizine. Chronic leukocytosis. He had no signs or symptoms of infection in the hospital. The differential was primary lymphocytes, and the hospital physicians queried whether he has an underlying leukemia, and per hospital records, the reported that he had a long history of leukocytosis, had seen oncologist in [place], and no further evaluation or treatment was advised at that time. Spinal stenosis. He has been placed on spinal precautions. It is unclear if these are truly necessary, but it is worthwhile to prevent any complications from his L4-L5 grade 1 degenerative spondylolisthesis and severe acquired central canal stenosis. * Back pain improved with initiation of low-dose gabapentin. Prophylaxis. He is at elevated risk for DVT given his age and hemiparesis. Will initiate enoxaparin 40 mg subcutaneous daily and will provide sequential compression devices to his legs at night. DISPOSITION: Limited discharge options. No local family support at his home in [place], and multiple stairs to enter and then live at son's home in [place]. manager pet considering prison facility discharge. Tentative discharge date of 02/19/2018. FOLLOWUP: He had followup advised in 2 weeks with the neurologist in [place], Dr. Mcclure, though it seems likely that he will seek followup with a neurologist in [place] where his son lives. PRIMARY CARE PROVIDER: Mariela Matthews MD, in [place]. 02/16/18 15:13 Subjective: No complaints. Reports he had his 1st "successful" bowel movement today; has previously had incontinence during his rehab stay. Notes some return of movement to the left upper extremity Objective: Vital Signs Temp Pulse Resp BP Pulse Ox 36.6 C 64 16 106/60 95 02/16/18 06:07 02/16/18 08:44 02/16/18 06:07 02/16/18 08:47 02/16/18 06:07 02/15/18 02/16/18 02/17/18 05:59 05:59 05:59 Intake Total 850 1020 195 Output Total 8095 975 525 Balance -725 36 -140 Physical Exam - Physical Exam General Appearance: WD/WN, alert, no apparent distress Respiratory: No respiratory distress, No accessory muscle use Skin: normal color, warm/dry Neuro/Psych: alert, normal mood/affect, oriented x 3, motor weakness (Left upper and lower extremities. Demonstrates movement at the left shoulder left elbow and left wrist.) ICD10 Worksheet Patient Problems: Problems Problem Status Onset Cerebrovascular accident (CVA) involving left cerebral hemisphere Acute - ICD10 Problem Qualifiers (1) Cerebrovascular accident (CVA) involving left cerebral hemisphere
[2018-02-16] MEDS: ATORVASTATIN CALCIUM 40 MG TAB PO SCH (16:39)
[2018-02-16] MEDS ORDERED: D50W 25 GM/50 ML VIAL IVP PRN (17:30)
[2018-02-16] MEDS: DONEPEZIL HCL 5 MG TAB PO SCH (21:29)
[2018-02-16] MEDS: CETIRIZINE 10 MG TAB PO SCH (21:29)
[2018-02-16] MEDS: INSULIN GLARGINE 100 UNITS/ML UNIT SC SCH (21:30)
[2018-02-16] MEDS: NYSTATIN POWDER 15 GM BTL TP SCH (21:31)
[2018-02-17] MEDS: DONEPEZIL HCL 5 MG TAB PO SCH (21:00)
[2018-02-17] MEDS: GABAPENTIN 100 MG CAP PO SCH (21:00)
[2018-02-17] MEDS: SOTALOL HCL 80 MG TAB PO SCH (21:00)
[2018-02-17] MEDS: INSULIN GLARGINE 100 UNITS/ML UNIT SC SCH (21:00)
[2018-02-17] MEDS: CETIRIZINE 10 MG TAB PO SCH (21:00)
[2018-02-17] MEDS: NYSTATIN POWDER 15 GM BTL TP SCH (22:00)
[2018-02-18] MEDS: ASPIRIN EC 81 MG TAB PO SCH ×2 (08:44→15:12)
[2018-02-18] MEDS: ENOXAPARIN 40 MG/0.4 ML SYR SC SCH ×2 (08:44→15:12)
[2018-02-18] MEDS: GABAPENTIN 100 MG CAP PO SCH ×4 (08:44→21:09)
[2018-02-18] MEDS: metFORMIN HCL 500 MG TAB PO SCH ×3 (08:44→17:13)
[2018-02-18] MEDS: INSULIN LISPRO 100 UNIT/ML SC SCH ×5 (08:45→17:12)
[2018-02-18] MEDS: TAMSULOSIN HCL 0.4 MG CAP PO SCH ×2 (08:46→15:16)
[2018-02-18] MEDS: ATORVASTATIN CALCIUM 40 MG TAB PO SCH ×2 (08:47→15:12)
[2018-02-18] MEDS: FLUoxetine 20 MG CAP PO SCH ×2 (08:47→15:13)
[2018-02-18] MEDS: CLOPIDOGREL BISULFATE 75 MG TAB PO SCH ×2 (08:47→15:12)
[2018-02-18] MEDS: NYSTATIN POWDER 15 GM BTL TP SCH ×4 (08:49→21:10)
[2018-02-18] MEDS: FLUTICASONE NASAL 120 SPRAYS/16 GM MDI EACHNARE SCH ×2 (08:49→15:13)
[2018-02-18] MEDS: LISINOPRIL 20 MG TAB PO SCH ×2 (08:51→15:15)
[2018-02-18] MEDS: SOTALOL HCL 80 MG TAB PO SCH ×3 (08:52→21:07)
[2018-02-18] MEDS: DOCUSATE SODIUM 100 MG CAP PO SCH (12:02)
--- NOTE | 2018-02-18 15:09 | SOAPPROG ---
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 * Initial functional independence measure 38 on 02/06/2018, improved to 45 as of , and to 53 as of 02/18/2018. Moderate assist for bed mobility. Delayed balance reactions. Difficulty with multitasking and maintaining balance. Squat pivot transfer require moderate assistance. Ambulated 10 ft at the rail with 2 assist. Upper body dressing requires minimal to moderate assistance, lower body dressing requires maximal assistance. Poor motor planning. Bath transfer required total assist and toileting required total assist of 2. He was able to bathe with moderate assistance. He has recovered movement in all planes with the left upper extremity but not yet functional. * Continue PT and OT to optimize mobility and activities of daily living to the standby assist or contact guard assist level. Dysarthria and history of dementia. * Working memory is very impaired. Also with decreased attention, organization , initiation and problem-solving. * Continue Speech and Language Pathology. Continue donepezil. Secondary prevention of cerebrovascular accident/neuro recovery. * Continue aspirin, clopidogrel, blood pressure and lipid control. * Initiate fluoxetine for neuro recovery at 10 mg daily beginning 02/05/2018. Titrated to 20 mg p.o. daily starting 02/10/2018. Hypertension. Continue lisinopril 20 mg QD and amlodipine 2.5 mg QD. Adequate control. Diabetes mellitus type 2. * Increased metformin from 500 mg p.o. b.i.d to 850 mg BID starting 02/05/2018. Titrated further to 1000 mg twice daily starting 02/10/2018. * Blood sugars lower than necessary on several determinations, 02/15/2018. Reduced insulin glargine from 9 units at HS to 7 units at HS and eliminated scheduled insulin lispro 3 units prior to meals. * Blood sugars running high, 02/17/2018-02/18/2018. Resume pre meal insulin at 2 units 3 times a day. Initiate sitagliptin 50 mg q.day starting 02/18/2018. Continue insulin lispro sliding scale. Continue to monitor. Goal of adequate glycemic control need for insulin multiple times a day while continuing insulin glargine at HS. * Per hospital discharge information, his hemoglobin A1c was 8.5%.Given his age and comorbidities, a reasonable goal would be 8%. Weight loss in recent months. * Related to influenza, shingles and secondary Staphylococcus infection. * Consultation with dietitian. Bowel and bladder incontinence. * Continue condom catheter at night. * Scheduled toileting. * No urinary retention. Consider discussion with family regarding discontinuation of donepezil, though it may well be improving his cognition. Dyslipidemia. Continue atorvastatin. History of cardiac dysrhythmia, unclear what the rhythm abnormality was. He is on sotalol, which also contributes to blood pressure control. Risk for QT prolongation with concurrent donepezil and sotalol. Reviewed EKG from [facility]. No QT prolongation. Possible peripheral vascular disease with cyanotic and cold feet. Secondary prevention for cerebrovascular accident and coronary artery disease will also serve to prevent worsening of circulation to his lower extremities. Cough, due to seasonal allergies. Continue cetirizine. Chronic leukocytosis. He had no signs or symptoms of infection in the hospital. The differential was primary lymphocytes, and the hospital physicians queried whether he has an underlying leukemia, and per hospital records, the reported that he had a long history of leukocytosis, had seen oncologist in [place], and no further evaluation or treatment was advised at that time. Spinal stenosis. He has been placed on spinal precautions. It is unclear if these are truly necessary, but it is worthwhile to prevent any complications from his L4-L5 grade 1 degenerative spondylolisthesis and severe acquired central canal stenosis. * Back pain improved with initiation of low-dose gabapentin. Prophylaxis. He is at elevated risk for DVT given his age and hemiparesis. Will initiate enoxaparin 40 mg subcutaneous daily and will provide sequential compression devices to his legs at night. DISPOSITION: Attended staffing, 15 min. Discussed with case monitor, dietitian , nursing, PT, OT, CLOTH FOLDER HAND. Son is intending to take him home though there are multiple steps to enter and within the house. Will need considerable home modifications. SNF remains on alternative. Set discharge date of 03/06/2018. FOLLOWUP: He had followup advised in 2 weeks with the neurologist in [place], Dr. Mcclure, though it seems likely that he will seek followup with a neurologist in [place] where his son lives. PRIMARY CARE PROVIDER: Mariela Matthews MD, in [place]. 02/18/18 15:20 Subjective: No complaints, though he wishes things would improve faster. Sleeping well, no in pain, no f/c, no cough/dyspnea. Continues to have frequent urination Objective: Vital Signs Temp Pulse Resp BP Pulse Ox 36.6 C 61 18 118/64 96 02/17/18 08:00 02/18/18 08:52 02/17/18 08:00 02/18/18 08:52 02/17/18 08:00 02/17/18 02/18/18 02/19/18 05:59 05:59 05:59 Intake Total 795 600 480 Output Total 750 425 Balance 45 175 480 - Time Spent With Patient Time Spent With Patient: Greater than 35 min floor time today, including more than 50% of time in coordination of care during staffing meeting, and counseling patient. Physical Exam - Physical Exam General Appearance: WD/WN, alert, no apparent distress Respiratory: normal breath sounds, No crackles, No rhonchi, No wheezing Cardiac/Chest: regular rate, rhythm, No edema, No diastolic murmur, No systolic murmur Skin: normal color, warm/dry Neuro/Psych: alert, normal mood/affect, motor weakness (Left upper and lower extremities.), other (Taking very few steps with front wheeled walker and considerable assistance by physical therapist. When distracted loses seated balance.) ICD10 Worksheet Patient Problems: Problems Problem Status Onset Cerebrovascular accident (CVA) involving left cerebral hemisphere Acute - ICD10 Problem Qualifiers (1) Cerebrovascular accident (CVA) involving left cerebral hemisphere
[2018-02-18] MEDS: CETIRIZINE 10 MG TAB PO SCH (21:05)
[2018-02-18] MEDS: INSULIN GLARGINE 100 UNITS/ML UNIT SC SCH (21:06)
[2018-02-18] MEDS: DONEPEZIL HCL 5 MG TAB PO SCH (21:06)
[2018-02-19] MEDS: ACETAMINOPHEN 325 MG TAB PO PRN (06:07)
[2018-02-19] MEDS: NYSTATIN POWDER 15 GM BTL TP SCH ×3 (07:45→20:21)
[2018-02-19] MEDS: FLUTICASONE NASAL 120 SPRAYS/16 GM MDI EACHNARE SCH (07:45)
[2018-02-19] MEDS: ENOXAPARIN 40 MG/0.4 ML SYR SC SCH (08:09)
[2018-02-19] MEDS: metFORMIN HCL 500 MG TAB PO SCH ×2 (08:09→17:19)
[2018-02-19] MEDS: SOTALOL HCL 80 MG TAB PO SCH ×2 (08:09→20:21)
[2018-02-19] MEDS: LISINOPRIL 20 MG TAB PO SCH (08:10)
[2018-02-19] MEDS: TAMSULOSIN HCL 0.4 MG CAP PO SCH (08:10)
[2018-02-19] MEDS: ASPIRIN EC 81 MG TAB PO SCH (08:10)
[2018-02-19] MEDS: ATORVASTATIN CALCIUM 40 MG TAB PO SCH (08:10)
[2018-02-19] MEDS: GABAPENTIN 100 MG CAP PO SCH ×3 (08:10→20:21)
[2018-02-19] MEDS: FLUoxetine 20 MG CAP PO SCH (08:10)
[2018-02-19] MEDS: CLOPIDOGREL BISULFATE 75 MG TAB PO SCH (08:15)
[2018-02-19] MEDS: INSULIN LISPRO 100 UNIT/ML SC SCH ×3 (08:16→17:19)
--- NOTE | 2018-02-19 13:52 | SOAPPROG ---
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 * Initial functional independence measure 38 on 02/06/2018, improved to 45 as of , and to 53 as of 02/18/2018. Moderate assist for bed mobility. Delayed balance reactions. Difficulty with multitasking and maintaining balance. Squat pivot transfer require moderate assistance. Ambulated 10 ft at the rail with 2 assist. Upper body dressing requires minimal to moderate assistance, lower body dressing requires maximal assistance. Poor motor planning. Bath transfer required total assist and toileting required total assist of 2. He was able to bathe with moderate assistance. He has recovered movement in all planes with the left upper extremity but not yet functional. * Continue PT and OT to optimize mobility and activities of daily living to the standby assist or contact guard assist level. Dysarthria and history of dementia. * Working memory is very impaired. Also with decreased attention, organization , initiation and problem-solving. * Continue Speech and Language Pathology. Observe for decline in cognition with discontinuation of donepezil. Secondary prevention of cerebrovascular accident/neuro recovery. * Continue aspirin, clopidogrel, blood pressure and lipid control. * Initiate fluoxetine for neuro recovery at 10 mg daily beginning 02/05/2018. Titrated to 20 mg p.o. daily starting 02/10/2018. Hypertension. Continue lisinopril 20 mg QD and amlodipine 2.5 mg QD. Adequate control. Diabetes mellitus type 2. * Increased metformin from 500 mg p.o. b.i.d to 850 mg BID starting 02/05/2018. Titrated further to 1000 mg twice daily starting 02/10/2018. * Blood sugars lower than necessary on several determinations, 02/15/2018. Reduced insulin glargine from 9 units at HS to 7 units at HS and eliminated scheduled insulin lispro 3 units prior to meals. * Blood sugars running high, 02/17/2018-02/18/2018. Resume pre meal insulin at 2 units 3 times a day. Initiate sitagliptin 50 mg q.day starting 02/18/2018. Continue insulin lispro sliding scale. Continue to monitor. Goal of adequate glycemic control need for insulin multiple times a day while continuing insulin glargine at HS. * Per hospital discharge information, his hemoglobin A1c was 8.5%.Given his age and comorbidities, a reasonable goal would be 8%. Bowel and bladder incontinence. * Continue condom catheter at night. * Scheduled toileting. * No urinary retention. Discontinue donepezil starting 02/19/2018. Observe for improvement in urinary frequency verses decline in cognition. Weight loss in recent months. * Related to influenza, shingles and secondary Staphylococcus infection. * Consultation with dietitian. Dyslipidemia. Continue atorvastatin. History of cardiac dysrhythmia, unclear what the rhythm abnormality was. He is on sotalol, which also contributes to blood pressure control. Risk for QT prolongation with concurrent donepezil and sotalol. Reviewed E[facility] from [facility]. No QT prolongation. Possible peripheral vascular disease with cyanotic and cold feet. Secondary prevention for cerebrovascular accident and coronary artery disease will also serve to prevent worsening of circulation to his lower extremities. Cough, due to seasonal allergies. Continue cetirizine. Chronic leukocytosis. He had no signs or symptoms of infection in the hospital. The differential was primary lymphocytes, and the hospital physicians queried whether he has an underlying leukemia, and per hospital records, the reported that he had a long history of leukocytosis, had seen oncologist in [place], and no further evaluation or treatment was advised at that time. Spinal stenosis. He has been placed on spinal precautions. It is unclear if these are truly necessary, but it is worthwhile to prevent any complications from his L4-L5 grade 1 degenerative spondylolisthesis and severe acquired central canal stenosis. * Back pain improved with initiation of low-dose gabapentin. Prophylaxis. He is at elevated risk for DVT given his age and hemiparesis. Will initiate enoxaparin 40 mg subcutaneous daily and will provide sequential compression devices to his legs at night. DISPOSITION: Attended family meeting, 30 min. Patient, , daughter, son and son's partner were present. Discussed with renal case manager, nursing, PT, OT, HOSPICE TEAM LEAD. Continues to need 24 hr care and ambulation is not functional. Son prefers to take him home though there are multiple steps to enter and within the house. Will need considerable home modifications. SNF remains on alternative. Set discharge date of 03/06/2018. FOLLOWUP: He had followup advised in 2 weeks with the neurologist in [place], Dr. Mcclure, though it seems likely that he will seek followup with a neurologist in [place] where his son lives. PRIMARY CARE PROVIDER: Mariela Matthews MD, in [place]. 02/19/18 13:53 Subjective: Complains of fatigue. Says he is groggy often during the day which she feels impairs his participation in therapies. Does not have particular complaint regarding sleep. Has improved return of movement on the left upper and lower extremities. Has been starting to walk but requires assist of 2. Continues to have urinary frequency. Objective: Vital Signs Temp Pulse Resp BP Pulse Ox 36.4 C 64 16 150/76 H 95 02/19/18 06:11 02/19/18 08:09 02/19/18 06:11 02/19/18 08:10 02/19/18 06:11 02/18/18 02/19/18 02/20/18 05:59 05:59 05:59 Intake Total 600 1540 200 Output Total 425 850 400 Balance 175 690 -200 Physical Exam - Physical Exam General Appearance: WD/WN, alert, no apparent distress Respiratory: normal breath sounds, No crackles, No rhonchi, No wheezing Cardiac/Chest: regular rate, rhythm, No edema, No diastolic murmur, No systolic murmur Skin: normal color, warm/dry Neuro/Psych: alert, normal mood/affect, oriented x 3, motor weakness (Moves left upper extremity arm and wrist in all planes but ataxic.) ICD10 Worksheet Patient Problems: Problems Problem Status Onset Cerebrovascular accident (CVA) involving left cerebral hemisphere Acute - ICD10 Problem Qualifiers (1) Cerebrovascular accident (CVA) involving left cerebral hemisphere
[2018-02-19] MEDS: CETIRIZINE 10 MG TAB PO SCH (20:21)
[2018-02-19] MEDS: INSULIN GLARGINE 100 UNITS/ML UNIT SC SCH (20:21)
[2018-02-20 08:29] LABS: PLATELET COUNT 185 10^3/uL (150-400)
[2018-02-20] MEDS: INSULIN LISPRO 100 UNIT/ML SC SCH ×3 (08:31→17:17)
[2018-02-20] MEDS: metFORMIN HCL 500 MG TAB PO SCH ×2 (08:57→17:17)
[2018-02-20] MEDS: GABAPENTIN 100 MG CAP PO SCH ×3 (08:58→21:22)
[2018-02-20] MEDS: ATORVASTATIN CALCIUM 40 MG TAB PO SCH (08:58)
[2018-02-20] MEDS: ASPIRIN EC 81 MG TAB PO SCH (08:58)
[2018-02-20] MEDS: TAMSULOSIN HCL 0.4 MG CAP PO SCH (08:58)
[2018-02-20] MEDS: FLUoxetine 20 MG CAP PO SCH (08:58)
[2018-02-20] MEDS: DOCUSATE SODIUM 100 MG CAP PO SCH (08:58)
[2018-02-20] MEDS: CLOPIDOGREL BISULFATE 75 MG TAB PO SCH (08:59)
[2018-02-20] MEDS: ENOXAPARIN 40 MG/0.4 ML SYR SC SCH (08:59)
[2018-02-20] MEDS: FLUTICASONE NASAL 120 SPRAYS/16 GM MDI EACHNARE SCH (09:07)
[2018-02-20] MEDS: LISINOPRIL 20 MG TAB PO SCH (09:09)
[2018-02-20] MEDS: SOTALOL HCL 80 MG TAB PO SCH (09:09)
--- NOTE | 2018-02-20 10:38 | SOAPPROG ---
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 * Initial functional independence measure 38 on 02/06/2018, improved to 45 as of , and to 53 as of 02/18/2018. Moderate assist for bed mobility. Delayed balance reactions. Difficulty with multitasking and maintaining balance. Squat pivot transfer require moderate assistance. Ambulated 10 ft at the rail with 2 assist. Upper body dressing requires minimal to moderate assistance, lower body dressing requires maximal assistance. Poor motor planning. Bath transfer required total assist and toileting required total assist of 2. He was able to bathe with moderate assistance. He has recovered movement in all planes with the left upper extremity but not yet functional. * Continue PT and OT to optimize mobility and activities of daily living to the standby assist or contact guard assist level. Dysarthria and history of dementia. * Working memory is very impaired. Also with decreased attention, organization , initiation and problem-solving. * Continue Speech and Language Pathology. Observe for decline in cognition with discontinuation of donepezil. Secondary prevention of cerebrovascular accident/neuro recovery. * Continue aspirin, clopidogrel, blood pressure and lipid control. * Initiate fluoxetine for neuro recovery at 10 mg daily beginning 02/05/2018. Titrated to 20 mg p.o. daily starting 02/10/2018. Hypertension. Continue lisinopril 20 mg QD and amlodipine 2.5 mg QD. Adequate control. Diabetes mellitus type 2. * Increased metformin from 500 mg p.o. b.i.d to 850 mg BID starting 02/05/2018. Titrated further to 1000 mg twice daily starting 02/10/2018. * Increase sitagliptin from 50 mg q.day to 100 mg q.day starting 02/21/2018. * Continue insulin glargine 9 units at HS. Continue insulin lispro sliding scale. Goal is to titrate oral medications for no need of daytime insulin. * Per hospital discharge information, his hemoglobin A1c was 8.5%.Given his age and comorbidities, a reasonable goal would be 8%. Bowel and bladder incontinence. * Continue condom catheter at night. * Scheduled toileting. * No urinary retention. Discontinue donepezil starting 02/19/2018. Observe for improvement in urinary frequency verses decline in cognition. Weight loss in recent months. * Related to influenza, shingles and secondary Staphylococcus infection. * Consultation with dietitian. Fatigue. * Laboratory evaluation 02/20/2018 with normal renal and hepatic function and normal TSH. Anemia. New since admission to inpatient rehabilitation. Dyslipidemia. Continue atorvastatin. History of cardiac dysrhythmia, unclear what the rhythm abnormality was. He is on sotalol, which also contributes to blood pressure control. Risk for QT prolongation with concurrent donepezil and sotalol. Reviewed EKG from [facility]. No QT prolongation. Possible peripheral vascular disease with cyanotic and cold feet. Secondary prevention for cerebrovascular accident and coronary artery disease will also serve to prevent worsening of circulation to his lower extremities. Cough, due to seasonal allergies. Continue cetirizine. Chronic leukocytosis. He had no signs or symptoms of infection in the hospital. The differential was primary lymphocytes, and the hospital physicians queried whether he has an underlying leukemia, and per hospital records, the reported that he had a long history of leukocytosis, had seen oncologist in [place], and no further evaluation or treatment was advised at that time. Spinal stenosis. He has been placed on spinal precautions. It is unclear if these are truly necessary, but it is worthwhile to prevent any complications from his L4-L5 grade 1 degenerative spondylolisthesis and severe acquired central canal stenosis. * Back pain improved with initiation of low-dose gabapentin. Prophylaxis. He is at elevated risk for DVT given his age and hemiparesis. Will initiate enoxaparin 40 mg subcutaneous daily and will provide sequential compression devices to his legs at night. DISPOSITION: Continues to need 24 hr care and ambulation is not functional. Son prefers to take him home though there are multiple steps to enter and within the house. Will need considerable home modifications. SNF remains an alternative. Family is visit and several SNFs. Set discharge date of 2017. FOLLOWUP: He had followup advised in 2 weeks with the neurologist in [place], Dr. Mcclure, though it seems likely that he will seek followup with a neurologist in [place] where his son lives. PRIMARY CARE PROVIDER: Mariela Matthews MD, in [place]. 02/20/18 10:30 Subjective: Complains of left heel discomfort while in bed. Sleeping well. No cough or dyspnea, no fevers or chills. Objective: Vital Signs Temp Pulse Resp BP Pulse Ox 37.0 C 65 12 119/62 93 02/20/18 06:25 02/20/18 09:09 02/20/18 06:25 02/20/18 09:09 02/20/18 06:25 Laboratory Results 02/20/18 06:00 02/20/18 06:00 02/19/18 02/20/18 02/21/18 05:59 05:59 05:59 Intake Total 1540 500 240 Output Total 850 1000 Balance 690 -500 240 Physical Exam - Physical Exam General Appearance: WD/WN, alert, no apparent distress Respiratory: No respiratory distress, No accessory muscle use Cardiac/Chest: edema (Trace bilateral lower extremities pretibial) Skin: other (Left heel nontender, no skin abnormalities.) Neuro/Psych: alert, normal mood/affect, abnormal cerebellar tests, motor weakness (Left lower greater than left upper extremity) ICD10 Worksheet Patient Problems: Problems Problem Status Onset Cerebrovascular accident (CVA) involving left cerebral hemisphere Acute - ICD10 Problem Qualifiers (1) Cerebrovascular accident (CVA) involving left cerebral hemisphere
[2018-02-20] MEDS: NYSTATIN POWDER 15 GM BTL TP SCH ×3 (14:52→21:25)
[2018-02-20] MEDS: CETIRIZINE 10 MG TAB PO SCH (20:52)
[2018-02-20] MEDS: INSULIN GLARGINE 100 UNITS/ML UNIT SC SCH (20:52)
[2018-02-21] MEDS: INSULIN LISPRO 100 UNIT/ML SC SCH ×3 (08:02→17:04)
[2018-02-21] MEDS: ENOXAPARIN 40 MG/0.4 ML SYR SC SCH (08:02)
[2018-02-21] MEDS: metFORMIN HCL 500 MG TAB PO SCH ×2 (08:02→17:04)
[2018-02-21] MEDS: FLUTICASONE NASAL 120 SPRAYS/16 GM MDI EACHNARE SCH (08:06)
[2018-02-21] MEDS: NYSTATIN POWDER 15 GM BTL TP SCH ×3 (08:07→20:23)
[2018-02-21] MEDS: LISINOPRIL 20 MG TAB PO SCH (08:19)
[2018-02-21] MEDS: CLOPIDOGREL BISULFATE 75 MG TAB PO SCH (08:19)
[2018-02-21] MEDS: GABAPENTIN 100 MG CAP PO SCH ×3 (08:19→20:21)
[2018-02-21] MEDS: ATORVASTATIN CALCIUM 40 MG TAB PO SCH (08:19)
[2018-02-21] MEDS: ASPIRIN EC 81 MG TAB PO SCH (08:19)
[2018-02-21] MEDS: FLUoxetine 20 MG CAP PO SCH (08:19)
[2018-02-21] MEDS: TAMSULOSIN HCL 0.4 MG CAP PO SCH (08:20)
[2018-02-21] MEDS: SOTALOL HCL 80 MG TAB PO SCH ×2 (08:21→20:21)
--- NOTE | 2018-02-21 13:27 | SOAPPROG ---
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 * Initial functional independence measure 38 on 02/06/2018, improved to 45 as of , and to 53 as of 02/18/2018. Moderate assist for bed mobility. Delayed balance reactions. Difficulty with multitasking and maintaining balance. Squat pivot transfer require moderate assistance. Ambulated 10 ft at the rail with 2 assist. Upper body dressing requires minimal to moderate assistance, lower body dressing requires maximal assistance. Poor motor planning. Bath transfer required total assist and toileting required total assist of 2. He was able to bathe with moderate assistance. He has recovered movement in all planes with the left upper extremity but not yet functional. * Continue PT and OT to optimize mobility and activities of daily living to the standby assist or contact guard assist level. Dysarthria and history of dementia. * Working memory is very impaired. Also with decreased attention, organization , initiation and problem-solving. * Continue Speech and Language Pathology. Observe for decline in cognition with discontinuation of donepezil. Secondary prevention of cerebrovascular accident/neuro recovery. * Continue aspirin, clopidogrel, blood pressure and lipid control. * Initiate fluoxetine for neuro recovery at 10 mg daily beginning 02/05/2018. Titrated to 20 mg p.o. daily starting 02/10/2018. Hypertension. Continue lisinopril 20 mg QD and amlodipine 2.5 mg QD. Adequate control. Diabetes mellitus type 2. * Increased metformin from 500 mg p.o. b.i.d to 850 mg BID starting 02/05/2018. Titrated further to 1000 mg twice daily starting 02/10/2018. * Increase sitagliptin from 50 mg q.day to 100 mg q.day starting 02/21/2018. * Continue insulin glargine 9 units at HS. Continue insulin lispro sliding scale. Goal is to titrate oral medications for no need of daytime insulin. * Per hospital discharge information, his hemoglobin A1c was 8.5%.Given his age and comorbidities, a reasonable goal would be 8%. Bowel and bladder incontinence. * Continue condom catheter at night. * Scheduled toileting. * No urinary retention. Discontinue donepezil starting 02/19/2018. Observe for improvement in urinary frequency verses decline in cognition. Weight loss in recent months. * Related to influenza, shingles and secondary Staphylococcus infection. * Consultation with dietitian. Fatigue. * Laboratory evaluation 02/20/2018 with normal renal and hepatic function and normal TSH. Anemia. New since admission to inpatient rehabilitation. Dyslipidemia. Continue atorvastatin. History of cardiac dysrhythmia, unclear what the rhythm abnormality was. He is on sotalol, which also contributes to blood pressure control. Risk for QT prolongation with concurrent donepezil and sotalol. Reviewed EKG from [facility]. No QT prolongation. Possible peripheral vascular disease with cyanotic and cold feet. Secondary prevention for cerebrovascular accident and coronary artery disease will also serve to prevent worsening of circulation to his lower extremities. Cough, due to seasonal allergies. Continue cetirizine. Chronic leukocytosis. He had no signs or symptoms of infection in the hospital. The differential was primary lymphocytes, and the hospital physicians queried whether he has an underlying leukemia, and per hospital records, the reported that he had a long history of leukocytosis, had seen oncologist in [place], and no further evaluation or treatment was advised at that time. Spinal stenosis. He has been placed on spinal precautions. It is unclear if these are truly necessary, but it is worthwhile to prevent any complications from his L4-L5 grade 1 degenerative spondylolisthesis and severe acquired central canal stenosis. * Back pain improved with initiation of low-dose gabapentin. Prophylaxis. He is at elevated risk for DVT given his age and hemiparesis. Will initiate enoxaparin 40 mg subcutaneous daily and will provide sequential compression devices to his legs at night. Plan: 02/21/18 13:26 Subjective: no new complaints. appetite not as good today Objective: Vital Signs Temp Pulse Resp BP Pulse Ox 36.9 C 64 17 134/64 H 94 02/21/18 08:00 02/21/18 08:21 02/21/18 08:00 02/21/18 08:21 02/21/18 08:00 Laboratory Results 02/20/18 06:00 02/20/18 06:00 02/20/18 02/21/18 02/22/18 05:59 05:59 05:59 Intake Total 500 900 Output Total 1000 100 925 Balance -500 800 -925 Physical Exam - Physical Exam General Appearance: WD/WN, alert, no apparent distress Neck: supple Respiratory: lungs clear, normal breath sounds Cardiac/Chest: regular rate, rhythm, edema (1+) Neuro/Psych: alert, normal mood/affect ICD10 Worksheet Patient Problems: Problems Problem Status Onset Cerebrovascular accident (CVA) involving left cerebral hemisphere Acute
[2018-02-21] MEDS: INSULIN GLARGINE 100 UNITS/ML UNIT SC SCH (20:21)
[2018-02-21] MEDS: CETIRIZINE 10 MG TAB PO SCH (20:21)
[2018-02-22] MEDS: ENOXAPARIN 40 MG/0.4 ML SYR SC SCH (07:31)
[2018-02-22] MEDS: NYSTATIN POWDER 15 GM BTL TP SCH ×3 (07:32→20:57)
[2018-02-22] MEDS: FLUTICASONE NASAL 120 SPRAYS/16 GM MDI EACHNARE SCH (07:32)
[2018-02-22] MEDS: metFORMIN HCL 500 MG TAB PO SCH ×2 (08:58→17:56)
[2018-02-22] MEDS: INSULIN LISPRO 100 UNIT/ML SC SCH ×3 (09:01→17:34)
[2018-02-22] MEDS: TAMSULOSIN HCL 0.4 MG CAP PO SCH (09:02)
[2018-02-22] MEDS: ATORVASTATIN CALCIUM 40 MG TAB PO SCH (09:02)
[2018-02-22] MEDS: GABAPENTIN 100 MG CAP PO SCH ×3 (09:02→20:38)
[2018-02-22] MEDS: CLOPIDOGREL BISULFATE 75 MG TAB PO SCH (09:08)
[2018-02-22] MEDS: DOCUSATE SODIUM 100 MG CAP PO SCH (09:08)
[2018-02-22] MEDS: ASPIRIN EC 81 MG TAB PO SCH (09:10)
[2018-02-22] MEDS: FLUoxetine 20 MG CAP PO SCH (09:10)
[2018-02-22] MEDS: SOTALOL HCL 80 MG TAB PO SCH ×2 (09:12→20:38)
[2018-02-22] MEDS: LISINOPRIL 20 MG TAB PO SCH (09:14)
[2018-02-22] MEDS: CETIRIZINE 10 MG TAB PO SCH (20:38)
[2018-02-22] MEDS: INSULIN GLARGINE 100 UNITS/ML UNIT SC SCH (20:38)
--- NOTE | 2018-02-22 21:22 | SOAPPROG ---
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 * Initial functional independence measure 38 on 02/06/2018, improved to 45 as of , and to 53 as of 02/18/2018. Moderate assist for bed mobility. Delayed balance reactions. Difficulty with multitasking and maintaining balance. Squat pivot transfer require moderate assistance. Ambulated 10 ft at the rail with 2 assist. Upper body dressing requires minimal to moderate assistance, lower body dressing requires maximal assistance. Poor motor planning. Bath transfer required total assist and toileting required total assist of 2. He was able to bathe with moderate assistance. He has recovered movement in all planes with the left upper extremity but not yet functional. * Continue PT and OT to optimize mobility and activities of daily living to the standby assist or contact guard assist level. Dysarthria and history of dementia. * Working memory is very impaired. Also with decreased attention, organization , initiation and problem-solving. * Continue Speech and Language Pathology. Observe for decline in cognition with discontinuation of donepezil. Secondary prevention of cerebrovascular accident/neuro recovery. * Continue aspirin, clopidogrel, blood pressure and lipid control. * Initiate fluoxetine for neuro recovery at 10 mg daily beginning 02/05/2018. Titrated to 20 mg p.o. daily starting 02/10/2018. Hypertension. Continue lisinopril 20 mg QD and amlodipine 2.5 mg QD. Adequate control. Diabetes mellitus type 2. * Increased metformin from 500 mg p.o. b.i.d to 850 mg BID starting 02/05/2018. Titrated further to 1000 mg twice daily starting 02/10/2018. * Increase sitagliptin from 50 mg q.day to 100 mg q.day starting 02/21/2018. * Continue insulin glargine 9 units at HS. Continue insulin lispro sliding scale. Goal is to titrate oral medications for no need of daytime insulin. * Per hospital discharge information, his hemoglobin A1c was 8.5%.Given his age and comorbidities, a reasonable goal would be 8%. Bowel and bladder incontinence. * Continue condom catheter at night. * Scheduled toileting. * No urinary retention. Discontinue donepezil starting 02/19/2018. Observe for improvement in urinary frequency verses decline in cognition. Weight loss in recent months. * Related to influenza, shingles and secondary Staphylococcus infection. * Consultation with dietitian. Fatigue. * Laboratory evaluation 02/20/2018 with normal renal and hepatic function and normal TSH. Anemia. New since admission to inpatient rehabilitation. Dyslipidemia. Continue atorvastatin. History of cardiac dysrhythmia, unclear what the rhythm abnormality was. He is on sotalol, which also contributes to blood pressure control. Risk for QT prolongation with concurrent donepezil and sotalol. Reviewed EKG from [facility]. No QT prolongation. Possible peripheral vascular disease with cyanotic and cold feet. Secondary prevention for cerebrovascular accident and coronary artery disease will also serve to prevent worsening of circulation to his lower extremities. Cough, due to seasonal allergies. Continue cetirizine. Chronic leukocytosis. He had no signs or symptoms of infection in the hospital. The differential was primary lymphocytes, and the hospital physicians queried whether he has an underlying leukemia, and per hospital records, the reported that he had a long history of leukocytosis, had seen oncologist in [place], and no further evaluation or treatment was advised at that time. Spinal stenosis. He has been placed on spinal precautions. It is unclear if these are truly necessary, but it is worthwhile to prevent any complications from his L4-L5 grade 1 degenerative spondylolisthesis and severe acquired central canal stenosis. * Back pain improved with initiation of low-dose gabapentin. Prophylaxis. He is at elevated risk for DVT given his age and hemiparesis. Will initiate enoxaparin 40 mg subcutaneous daily and will provide sequential compression devices to his legs at night. Plan: 02/21/18 13:26 Subjective: no new complaints. little frustrated at pace of progress Objective: Vital Signs Temp Pulse Resp BP Pulse Ox 36.5 C 67 16 145/72 H 98 02/22/18 18:30 02/22/18 20:38 02/22/18 18:30 02/22/18 20:38 02/22/18 18:30 Laboratory Results 02/20/18 06:00 02/20/18 06:00 02/21/18 02/22/18 02/23/18 05:59 05:59 05:59 Intake Total 900 656 716 Output Total 100 0602 850 Balance 800 -1139 134 Physical Exam - Physical Exam General Appearance: WD/WN, alert, no apparent distress Neck: supple Respiratory: lungs clear, normal breath sounds Cardiac/Chest: regular rate, rhythm Skin: warm/dry ICD10 Worksheet Patient Problems: Problems Problem Status Onset Cerebrovascular accident (CVA) involving left cerebral hemisphere Acute
[2018-02-23] MEDS: metFORMIN HCL 500 MG TAB PO SCH ×2 (08:52→17:49)
[2018-02-23] MEDS: ENOXAPARIN 40 MG/0.4 ML SYR SC SCH (08:53)
[2018-02-23] MEDS: FLUoxetine 20 MG CAP PO SCH (08:54)
[2018-02-23] MEDS: CLOPIDOGREL BISULFATE 75 MG TAB PO SCH (08:54)
[2018-02-23] MEDS: LISINOPRIL 20 MG TAB PO SCH (08:54)
[2018-02-23] MEDS: ATORVASTATIN CALCIUM 40 MG TAB PO SCH (08:54)
[2018-02-23] MEDS: TAMSULOSIN HCL 0.4 MG CAP PO SCH (08:54)
[2018-02-23] MEDS: ASPIRIN EC 81 MG TAB PO SCH (08:54)
[2018-02-23] MEDS: GABAPENTIN 100 MG CAP PO SCH ×3 (08:54→21:12)
[2018-02-23] MEDS: SOTALOL HCL 80 MG TAB PO SCH ×2 (09:00→21:11)
[2018-02-23] MEDS: NYSTATIN POWDER 15 GM BTL TP SCH ×3 (09:35→21:11)
[2018-02-23] MEDS: FLUTICASONE NASAL 120 SPRAYS/16 GM MDI EACHNARE SCH (09:36)
[2018-02-23] MEDS: INSULIN LISPRO 100 UNIT/ML SC SCH ×3 (09:37→17:33)
--- NOTE | 2018-02-23 10:13 | SOAPPROG ---
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 * Initial functional independence measure 38 on 02/06/2018, improved to 45 as of , and to 53 as of 02/18/2018. Moderate assist for bed mobility. Delayed balance reactions. Difficulty with multitasking and maintaining balance. Squat pivot transfer require moderate assistance. Ambulated 10 ft at the rail with 2 assist. Upper body dressing requires minimal to moderate assistance, lower body dressing requires maximal assistance. Poor motor planning. Bath transfer required total assist and toileting required total assist of 2. He was able to bathe with moderate assistance. He has recovered movement in all planes with the left upper extremity but not yet functional. * Continue PT and OT to optimize mobility and activities of daily living to the standby assist or contact guard assist level. Dysarthria and history of dementia. * Working memory is very impaired. Also with decreased attention, organization , initiation and problem-solving. * Continue Speech and Language Pathology. No decline in cognition noted with discontinuation of donepezil. Secondary prevention of cerebrovascular accident/neuro recovery. * Continue aspirin, clopidogrel, blood pressure and lipid control. * Initiate fluoxetine for neuro recovery at 10 mg daily beginning 02/05/2018. Titrated to 20 mg p.o. daily starting 02/10/2018. Hypertension. Continue lisinopril 20 mg QD and amlodipine 2.5 mg QD. Adequate control. Diabetes mellitus type 2. * Increased metformin from 500 mg p.o. b.i.d to 850 mg BID starting 02/05/2018. Titrated further to 1000 mg twice daily starting 02/10/2018. * Increase sitagliptin from 50 mg q.day to 100 mg q.day starting 02/21/2018. * Continue insulin glargine 9 units at HS. Continue insulin lispro sliding scale. Goal is to titrate oral medications for no need of daytime insulin. * Per hospital discharge information, his hemoglobin A1c was 8.5%.Given his age and comorbidities, a reasonable goal would be 8%. Bowel and bladder incontinence. * Continue condom catheter at night. * Scheduled toileting. Trial of psyllium fiber supplement q.day as stool bulking agent starting 01/23/2018.. * No urinary retention. Discontinued donepezil starting 02/19/2018 without improvement in urinary frequency verses decline in cognition. * Continues with frequent urination and defecation as often as q.1 hour through the day. Weight loss in recent months. * Related to influenza, shingles and secondary Staphylococcus infection. * Consultation with dietitian. Fatigue. * Laboratory evaluation 02/20/2018 with normal renal and hepatic function and normal TSH. Anemia. New since admission to inpatient rehabilitation. * Not iron deficient, no macrocytosis. 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 Recheck p.r.n.. * Advise follow-up with Hematology after discharge. Dyslipidemia. Continue atorvastatin. History of cardiac dysrhythmia, unclear what the rhythm abnormality was. He is on sotalol, which also contributes to blood pressure control. Risk for QT prolongation with concurrent donepezil and sotalol. Reviewed EKG from [facility]. No QT prolongation. Possible peripheral vascular disease with cyanotic and cold feet. Secondary prevention for cerebrovascular accident and coronary artery disease will also serve to prevent worsening of circulation to his lower extremities. Cough, due to seasonal allergies. Continue cetirizine. Chronic leukocytosis. He had no signs or symptoms of infection in the hospital. The differential was primary lymphocytes, and the hospital physicians queried whether he has an underlying leukemia, and per hospital records, the reported that he had a long history of leukocytosis, had seen oncologist in [place], and no further evaluation or treatment was advised at that time. Spinal stenosis. He has been placed on spinal precautions. It is unclear if these are truly necessary, but it is worthwhile to prevent any complications from his L4-L5 grade 1 degenerative spondylolisthesis and severe acquired central canal stenosis. * Back pain improved with initiation of low-dose gabapentin. Prophylaxis. He is at elevated risk for DVT given his age and hemiparesis. Will initiate enoxaparin 40 mg subcutaneous daily and will provide sequential compression devices to his legs at night. DISPOSITION: Continues to need 24 hr care and ambulation is not functional. Son prefers to take him home though there are multiple steps to enter and within the house. Will need considerable home modifications. SNF remains an alternative. Family is visit and several SNFs. Set discharge date of 2017. FOLLOWUP: He had followup advised in 2 weeks with the neurologist in [facility] Dr. Mcclure, though it seems likely that he will seek followup with a neurologist in [place] where his son lives. PRIMARY CARE PROVIDER: Mariela Matthews MD, in [place]. 02/20/18 10:30 02/23/18 11:05 Subjective: No complaints. Sleeping well. Not in pain. No cough or dyspnea, no fevers or chills. Objective: Vital Signs Temp Pulse Resp BP Pulse Ox 36.5 C 72 16 130/70 H 98 02/22/18 18:30 02/23/18 09:00 02/22/18 18:30 02/23/18 09:00 02/22/18 18:30 Laboratory Results 02/20/18 06:00 02/20/18 06:00 02/22/18 02/23/18 02/24/18 05:59 05:59 05:59 Intake Total 656 916 400 Output Total 7045 1300 Balance -1169 -937 400 Physical Exam - Physical Exam General Appearance: WD/WN, alert, no apparent distress Respiratory: normal breath sounds, No crackles, No rhonchi, No wheezing Cardiac/Chest: regular rate, rhythm, No edema Skin: normal color, warm/dry Neuro/Psych: alert, normal mood/affect, oriented x 3, abnormal gait (Ambulates short distance with front wheeled walker and assist of 2 therapists. Has left AFO and occasional left foot drag.), motor weakness (Left upper and lower extremities) ICD10 Worksheet Patient Problems: Problems Problem Status Onset Cerebrovascular accident (CVA) involving left cerebral hemisphere Acute - ICD10 Problem Qualifiers (1) Cerebrovascular accident (CVA) involving left cerebral hemisphere
[2018-02-23] MEDS: CETIRIZINE 10 MG TAB PO SCH (21:12)
[2018-02-23] MEDS: INSULIN GLARGINE 100 UNITS/ML UNIT SC SCH (21:13)
[2018-02-24] MEDS: ENOXAPARIN 40 MG/0.4 ML SYR SC SCH (07:46)
[2018-02-24] MEDS: FLUTICASONE NASAL 120 SPRAYS/16 GM MDI EACHNARE SCH (07:50)
[2018-02-24] MEDS: NYSTATIN POWDER 15 GM BTL TP SCH ×3 (07:50→21:40)
[2018-02-24] MEDS: FLUoxetine 20 MG CAP PO SCH (07:52)
[2018-02-24] MEDS: ATORVASTATIN CALCIUM 40 MG TAB PO SCH (07:52)
[2018-02-24] MEDS: CLOPIDOGREL BISULFATE 75 MG TAB PO SCH (07:52)
[2018-02-24] MEDS: metFORMIN HCL 500 MG TAB PO SCH ×2 (07:52→17:45)
[2018-02-24] MEDS: GABAPENTIN 100 MG CAP PO SCH ×3 (07:52→21:40)
[2018-02-24] MEDS: ASPIRIN EC 81 MG TAB PO SCH (07:53)
[2018-02-24] MEDS: TAMSULOSIN HCL 0.4 MG CAP PO SCH (07:53)
[2018-02-24] MEDS: INSULIN LISPRO 100 UNIT/ML SC SCH ×3 (08:02→17:58)
[2018-02-24] MEDS: LISINOPRIL 20 MG TAB PO SCH (08:02)
[2018-02-24] MEDS: SOTALOL HCL 80 MG TAB PO SCH ×2 (08:02→21:39)
[2018-02-24] MEDS: PSYLLIUM METAMUCIL 1 PKT PO SCH (08:03)
[2018-02-24] MEDS: DOCUSATE SODIUM 100 MG CAP PO SCH (08:09)
--- NOTE | 2018-02-24 14:45 | SOAPPROG ---
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 * Initial functional independence measure 38 on 02/06/2018, improved to 45 as of , and to 53 as of 02/18/2018. Moderate assist for bed mobility. Delayed balance reactions. Difficulty with multitasking and maintaining balance. Squat pivot transfer require moderate assistance. Ambulated 10 ft at the rail with 2 assist. Upper body dressing requires minimal to moderate assistance, lower body dressing requires maximal assistance. Poor motor planning. Bath transfer required total assist and toileting required total assist of 2. He was able to bathe with moderate assistance. He has recovered movement in all planes with the left upper extremity but not yet functional. * Continue PT and OT to optimize mobility and activities of daily living to the standby assist or contact guard assist level. Dysarthria and history of dementia. * Working memory is very impaired. Also with decreased attention, organization , initiation and problem-solving. * Continue Speech and Language Pathology. No decline in cognition noted with discontinuation of donepezil. Secondary prevention of cerebrovascular accident/neuro recovery. * Continue aspirin, clopidogrel, blood pressure and lipid control. * Initiate fluoxetine for neuro recovery at 10 mg daily beginning 02/05/2018. Titrated to 20 mg p.o. daily starting 02/10/2018. Hypertension. Continue lisinopril 20 mg QD and amlodipine 2.5 mg QD. Adequate control. Diabetes mellitus type 2. * Increased metformin from 500 mg p.o. b.i.d to 850 mg BID starting 02/05/2018. Titrated further to 1000 mg twice daily starting 02/10/2018. * Increase sitagliptin from 50 mg q.day to 100 mg q.day starting 02/21/2018. * Continue insulin glargine 9 units at HS. Continue insulin lispro sliding scale. Goal is to titrate oral medications for no need of daytime insulin. * Per hospital discharge information, his hemoglobin A1c was 8.5%.Given his age and comorbidities, a reasonable goal would be 8%. Bowel and bladder incontinence. * Continue condom catheter at night. * Scheduled toileting. Trial of psyllium fiber supplement q.day as stool bulking agent starting 02/23/2018.. * No urinary retention. Discontinued donepezil starting 02/19/2018 without improvement in urinary frequency or decline in cognition. * Continues with frequent urination and defecation as often as q.1 hour through the day. Urinary frequency. * Would not initiate bladder anticholinergic due to cognitive effects. * Consider trial of mirabegron, but it is not available through the hospital formulary. Weight loss in recent months. * Related to influenza, shingles and secondary Staphylococcus infection. * Consultation with dietitian. Fatigue. * Laboratory evaluation 02/20/2018 with normal renal and hepatic function and normal TSH. Anemia. New since admission to inpatient rehabilitation. * Not iron deficient, no macrocytosis. 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 Recheck p.r.n.. * Advise follow-up with Hematology after discharge. Dyslipidemia. Continue atorvastatin. History of cardiac dysrhythmia, unclear what the rhythm abnormality was. He is on sotalol, which also contributes to blood pressure control. Risk for QT prolongation with concurrent donepezil and sotalol. Reviewed EKG from [facility]. No QT prolongation. Possible peripheral vascular disease with cyanotic and cold feet. Secondary prevention for cerebrovascular accident and coronary artery disease will also serve to prevent worsening of circulation to his lower extremities. Cough, due to seasonal allergies. Continue cetirizine. Chronic leukocytosis. He had no signs or symptoms of infection in the hospital. The differential was primary lymphocytes, and the hospital physicians queried whether he has an underlying leukemia, and per hospital records, the reported that he had a long history of leukocytosis, had seen oncologist in [place], and no further evaluation or treatment was advised at that time. Spinal stenosis. He has been placed on spinal precautions. It is unclear if these are truly necessary, but it is worthwhile to prevent any complications from his L4-L5 grade 1 degenerative spondylolisthesis and severe acquired central canal stenosis. * Back pain improved with initiation of low-dose gabapentin. Prophylaxis. He is at elevated risk for DVT given his age and hemiparesis. Will initiate enoxaparin 40 mg subcutaneous daily and will provide sequential compression devices to his legs at night. DISPOSITION: Continues to need 24 hr care and ambulation is not functional. Son prefers to take him home though there are multiple steps to enter and within the house. Will need considerable home modifications. SNF remains an alternative. Family is visit and several SNFs. Set discharge date of 2017. FOLLOWUP: He had followup advised in 2 weeks with the neurologist in [place], Dr. Mcclure, though it seems likely that he will seek followup with a neurologist in [place] where his son lives. PRIMARY CARE PROVIDER: Mariela Matthews MD, in [place]. 02/24/18 14:40 Subjective: Has not noticed any change in urinary frequency after discontinuing donepezil. Discussed with speech language pathology; no change in cognition noted either. He is otherwise without complaints other than feeling frustrated by his slow pace of recovery. Objective: Vital Signs Temp Pulse Resp BP Pulse Ox 36.4 C 60 16 126/60 H 96 02/24/18 06:39 02/24/18 08:02 02/24/18 06:39 02/24/18 08:04 02/24/18 06:39 Laboratory Results 02/20/18 06:00 02/20/18 06:00 02/23/18 02/24/18 02/25/18 05:59 05:59 05:59 Intake Total 916 1300 400 Output Total 1300 1560 50 Balance -384 -260 350 Physical Exam - Physical Exam General Appearance: WD/WN, alert, no apparent distress Respiratory: No respiratory distress, No accessory muscle use Skin: normal color, warm/dry Neuro/Psych: alert, normal mood/affect, oriented x 3, motor weakness (Left upper and lower extremities.) ICD10 Worksheet Patient Problems: Problems Problem Status Onset Cerebrovascular accident (CVA) involving left cerebral hemisphere Acute - ICD10 Problem Qualifiers (1) Cerebrovascular accident (CVA) involving left cerebral hemisphere
[2018-02-24] MEDS: INSULIN GLARGINE 100 UNITS/ML UNIT SC SCH (21:39)
[2018-02-24] MEDS: CETIRIZINE 10 MG TAB PO SCH (21:39)
[2018-02-25] MEDS: GABAPENTIN 100 MG CAP PO SCH ×3 (08:05→21:19)
[2018-02-25] MEDS: SOTALOL HCL 80 MG TAB PO SCH ×2 (08:05→21:19)
[2018-02-25] MEDS: ENOXAPARIN 40 MG/0.4 ML SYR SC SCH (08:05)
[2018-02-25] MEDS: ASPIRIN EC 81 MG TAB PO SCH (08:06)
[2018-02-25] MEDS: CLOPIDOGREL BISULFATE 75 MG TAB PO SCH (08:06)
[2018-02-25] MEDS: LISINOPRIL 20 MG TAB PO SCH (08:06)
[2018-02-25] MEDS: INSULIN LISPRO 100 UNIT/ML SC SCH ×3 (08:06→16:31)
[2018-02-25] MEDS: ATORVASTATIN CALCIUM 40 MG TAB PO SCH (08:06)
[2018-02-25] MEDS: PSYLLIUM METAMUCIL 1 PKT PO SCH (08:06)
[2018-02-25] MEDS: TAMSULOSIN HCL 0.4 MG CAP PO SCH (08:06)
[2018-02-25] MEDS: FLUoxetine 20 MG CAP PO SCH (08:06)
[2018-02-25] MEDS: metFORMIN HCL 500 MG TAB PO SCH ×2 (08:06→17:16)
[2018-02-25] MEDS: NYSTATIN POWDER 15 GM BTL TP SCH ×3 (08:07→21:20)
[2018-02-25] MEDS: FLUTICASONE NASAL 120 SPRAYS/16 GM MDI EACHNARE SCH (08:07)
[2018-02-25] MEDS: amLODIPine BESYLATE 5 MG TAB PO SCH (10:35)
--- NOTE | 2018-02-25 11:06 | SOAPPROG ---
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 * Initial functional independence measure 38 on 02/06/2018, improved to 45 as of , and to 53 as of 02/18/2018. Remains at 53 on 02/25/2018. Moderate assist for bed mobility. Delayed balance reactions. Difficulty with multitasking and maintaining balance. Squat pivot transfer require moderate assistance. Ambulated 60 ft with front wheeled walker, AFO and 2 assist. Upper body dressing requires minimal to moderate assistance, lower body dressing requires maximal assistance. Poor motor planning. Bath transfer required total assist and toileting required total assist of 2. He was able to bathe with moderate assistance. He has recovered movement in all planes with the left upper extremity but not yet functional. * Continue PT and OT to optimize mobility and activities of daily living to the standby assist or contact guard assist level. Dysarthria and history of dementia. * Working memory is very impaired. Also with decreased attention, organization , initiation and problem-solving. * SL you MS improved from 08/07 to , consistent with mild neuro cognitive disorder. No decline in cognition noted with discontinuation of donepezil. * Continue Speech and Language Pathology. Secondary prevention of cerebrovascular accident/neuro recovery. * Continue aspirin, clopidogrel, blood pressure and lipid control. * Initiate fluoxetine for neuro recovery at 10 mg daily beginning 02/05/2018. Titrated to 20 mg p.o. daily starting 02/10/2018. Hypertension. Continue lisinopril 20 mg QD. Blood pressure is running slightly high. Increase amlodipine from 2.5 mg to 5 mg q.day starting 2017.. Diabetes mellitus type 2. * Increased metformin from 500 mg p.o. b.i.d to 850 mg BID starting 02/05/2018. Titrated further to 1000 mg twice daily starting 02/10/2018. * Increase sitagliptin from 50 mg q.day to 100 mg q.day starting 02/21/2018. * Continue insulin glargine 9 units at HS. Continue insulin lispro sliding scale. Goal is to titrate oral medications for no need of daytime insulin. * Per hospital discharge information, his hemoglobin A1c was 8.5%.Given his age and comorbidities, a reasonable goal would be 8%. Bowel and bladder incontinence. * Continue condom catheter at night. * Scheduled toileting. Trial of psyllium fiber supplement q.day as stool bulking agent starting 02/23/2018.. * No urinary retention. Discontinued donepezil starting 02/19/2018 without improvement in urinary frequency or decline in cognition. * Continues with frequent urination and defecation as often as q.1 hour through the day. Urinary frequency. * Would not initiate bladder anticholinergic due to cognitive effects. * Consider trial of mirabegron, but it is not available through the hospital formulary. Weight loss in recent months. * Related to influenza, shingles and secondary Staphylococcus infection. * Consultation with dietitian. Fatigue. * Laboratory evaluation 02/20/2018 with normal renal and hepatic function and normal TSH. Anemia. New since admission to inpatient rehabilitation. * Not iron deficient, no macrocytosis. 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 Recheck p.r.n.. * Advise follow-up with Hematology after discharge. Dyslipidemia. Continue atorvastatin. History of cardiac dysrhythmia, unclear what the rhythm abnormality was. He is on sotalol, which also contributes to blood pressure control. Risk for QT prolongation with concurrent donepezil and sotalol. Reviewed EKG from [facility], [place]. No QT prolongation. Donepezil has subsequently been discontinued. Possible peripheral vascular disease with cyanotic and cold feet. Secondary prevention for cerebrovascular accident and coronary artery disease will also serve to prevent worsening of circulation to his lower extremities. Cough, due to seasonal allergies. Continue cetirizine. Chronic leukocytosis. He had no signs or symptoms of infection in the hospital. The differential was primary lymphocytes, and the hospital physicians queried whether he has an underlying leukemia, and per hospital records, the reported that he had a long history of leukocytosis, had seen oncologist in [place], and no further evaluation or treatment was advised at that time. Spinal stenosis. He has been placed on spinal precautions. It is unclear if these are truly necessary, but it is worthwhile to prevent any complications from his L4-L5 grade 1 degenerative spondylolisthesis and severe acquired central canal stenosis. * Back pain improved with initiation of low-dose gabapentin. Prophylaxis. He is at elevated risk for DVT given his age and hemiparesis. Will initiate enoxaparin 40 mg subcutaneous daily and will provide sequential compression devices to his legs at night. DISPOSITION: Attended staffing, 15 min. Discussed with case management, nursing, dietitian, PT, OT, [employer]. Continues to need 24 hr care and ambulation is not functional. Son prefers to take him home though there are multiple steps to enter and within the house. Would need considerable home modifications. SNF remains an alternative. Family is visit and several SNFs. Continue discharge date of 03/06/2018. FOLLOWUP: He had followup advised in 2 weeks with the neurologist in [place], Dr. Mcclure, though it seems likely that he will seek followup with a neurologist in [place] where his son lives. PRIMARY CARE PROVIDER: Mariela Matthews MD, in [place]. 02/25/18 11:00 Subjective: Feels fatigued today. Otherwise without complaint. No cough or dyspnea, no fevers or chills, no dysuria. Objective: Vital Signs Temp Pulse Resp BP Pulse Ox 36.5 C 67 12 136/68 H 93 02/25/18 06:32 02/25/18 06:32 02/25/18 06:32 02/25/18 06:32 02/25/18 06:32 Laboratory Results 02/20/18 06:00 02/20/18 06:00 02/24/18 02/25/18 02/26/18 05:59 05:59 05:59 Intake Total 1300 700 Output Total 1560 1300 150 Balance -260 -600 -150 - Time Spent With Patient Time Spent With Patient: Greater than 35 min floor time today, including more than 50% of time in coordination of care during staffing meeting, and counseling patient. Physical Exam - Physical Exam General Appearance: WD/WN, alert, no apparent distress Respiratory: normal breath sounds, No crackles, No rhonchi, No wheezing Cardiac/Chest: regular rate, rhythm, other (Distant heart sounds), No edema Skin: normal color, warm/dry Neuro/Psych: alert, normal mood/affect, oriented x 3, motor weakness (Left upper and lower extremities) ICD10 Worksheet Patient Problems: Problems Problem Status Onset Cerebrovascular accident (CVA) involving left cerebral hemisphere Acute - ICD10 Problem Qualifiers (1) Cerebrovascular accident (CVA) involving left cerebral hemisphere
[2018-02-25] MEDS: INSULIN GLARGINE 100 UNITS/ML UNIT SC SCH (21:19)
[2018-02-25] MEDS: CETIRIZINE 10 MG TAB PO SCH (21:20)
[2018-02-26] MEDS: INSULIN LISPRO 100 UNIT/ML SC SCH ×3 (07:51→17:14)
[2018-02-26] MEDS: ENOXAPARIN 40 MG/0.4 ML SYR SC SCH (07:52)
[2018-02-26] MEDS: metFORMIN HCL 500 MG TAB PO SCH ×2 (08:28→17:13)
[2018-02-26] MEDS: amLODIPine BESYLATE 5 MG TAB PO SCH (08:29)
[2018-02-26] MEDS: ASPIRIN EC 81 MG TAB PO SCH (08:30)
[2018-02-26] MEDS: ATORVASTATIN CALCIUM 40 MG TAB PO SCH (08:30)
[2018-02-26] MEDS: CLOPIDOGREL BISULFATE 75 MG TAB PO SCH (08:31)
[2018-02-26] MEDS: DOCUSATE SODIUM 100 MG CAP PO SCH (08:32)
[2018-02-26] MEDS: FLUoxetine 20 MG CAP PO SCH (08:33)
[2018-02-26] MEDS: GABAPENTIN 100 MG CAP PO SCH ×3 (08:34→21:18)
[2018-02-26] MEDS: LISINOPRIL 20 MG TAB PO SCH (08:34)
[2018-02-26] MEDS: SOTALOL HCL 80 MG TAB PO SCH ×2 (08:36→21:18)
[2018-02-26] MEDS: TAMSULOSIN HCL 0.4 MG CAP PO SCH (08:36)
--- NOTE | 2018-02-26 09:02 | SOAPPROG ---
SOAP Progress Note Assessment/Plan: 82-year-old male status post a right posterior internal capsule stroke diagnosed 01/30/2018, impairments in mobility, self-care, including dysarthria and history of dementia. Today's update: Discussed expected rehabilitation course and prognosis with the patient at length. Discussed that the time course for recovery from stroke can vary from a few to several months. Discussed the trajectory of improvement as well as expected course of neurological improvement going from proximal to distal. Patient is experiencing some frustration today, some low mood. He has no history of low mood or suicidal ideation and no suicidal ideation today. Sleeping fine. Continue bladder management strategies including condom cath for now. Recommended that he talk with social welfare administrator about adjustment related issues. Total of 30 min spent on the floor in the care of the patient, the majority of which was spent counseling coordination of care regarding rehab progress Additional issues reviewed but not changed today include secondary prevention of stroke not otherwise discussed above, weight loss, bowel and bladder incontinence , cardiac dysrhythmia, risk of QT prolongation, possible peripheral vascular disease, cough, chronic leukocytosis, DVT prophylaxis. 02/07/18 16:02 02/08/18 11:46 02/10/18 10:42 02/26/18 08:59 02/26/18 09:41 Subjective: Chief complaint: Frustration and low mood today No acute events overnight. Patient denies any new shortness of breath or chest pain, no new numbness, tingling, or weakness. Today he notes that he has a slightly lower mood is more frustrated with his feelings of slow progress. He denies any history of depression or suicidal ideation. He also does not have any suicidal ideation today. He was inquiring about typical rehab course and whether not the feelings he is experiencing are normal. He also recommended that the staff pay attention to catheter application as there is some leakage at night. He continues to have left-sided weakness but is encouraged by the fact that part of the body that can move can be made stronger and more coordinated. He is sleeping well. Has not spoken with lease of the social welfare administrator regarding mood yet. Objective: Vital Signs Temp Pulse Resp BP Pulse Ox 37.0 C 62 16 125/60 H 92 02/26/18 06:17 02/26/18 06:17 02/26/18 06:17 02/26/18 06:17 02/26/18 06:17 Laboratory Results 02/20/18 06:00 02/20/18 06:00 02/25/18 02/26/18 02/27/18 05:59 05:59 05:59 Intake Total 700 880 Output Total 1300 1450 Balance -600 -570 Physical Exam - Physical Exam General Appearance: WD/WN, alert, no apparent distress EENT: No scleral icterus (R), No scleral icterus (L) Respiratory: No respiratory distress, No accessory muscle use Cardiac/Chest: normal peripheral pulses, regular rate, rhythm, No edema Skin: normal color, warm/dry, No cyanosis, No diaphoresis Extremities: No pedal edema, No calf tenderness, No swelling Neuro/Psych: alert, motor weakness, No normal mood/affect (Endorses a low or mood this morning but had a relatively unchanged affect, he is always a bit flat.) ICD10 Worksheet Patient Problems: Problems Problem Status Onset Cerebrovascular accident (CVA) involving left cerebral hemisphere Acute
[2018-02-26] MEDS: PSYLLIUM METAMUCIL 1 PKT PO SCH (09:06)
[2018-02-26] MEDS: FLUTICASONE NASAL 120 SPRAYS/16 GM MDI EACHNARE SCH (09:10)
[2018-02-26] MEDS: NYSTATIN POWDER 15 GM BTL TP SCH ×3 (14:13→21:18)
[2018-02-26] MEDS: INSULIN GLARGINE 100 UNITS/ML UNIT SC SCH (21:18)
[2018-02-26] MEDS: CETIRIZINE 10 MG TAB PO SCH (21:18)
--- NOTE | 2018-02-26 23:11 | SOAPPROG ---
SOAP Progress Note Assessment/Plan: Assessment: Kidney qi/yin deficiency, Spleen qi deficiency with damp-cold/heat, Blood stasis Tongue: Red with yellow fur, midline cracks, dry Pulse: thin, choppy Plan: Nourish kidney qi/yin, nourish spleen qi, resolve damp-cold/heat, and move blood stasis Acupuncture Points: head/face scalp points, balance point scalp, shenmen, point zero, spine section of ear points, Upper and lower limbs right side only, yintang Acupressure: Sp9 02/26/18 23:08 02/26/18 23:10 02/26/18 23:11 Subjective: Subjective: 82- Male, Right side CVA about 4 weeks ago. Is able to move left arm, fingers and leg slightly but ROM is restricted, especially in left leg, much harder to lift up and down. Left arm, hand and fingers are active but tend to tighten up as well. Feels very weak, gets tired pretty fast and tends to get thirsty but does not drink enough water. Tends to take naps in the afternoon. Has some pitting edema in legs. Balance is off, wants to work on equilibrium. Has spinal [id number], grade 1 degenerative spondylolisthesis and central canal stenosis. Digestion: currently has bowel and bladder incontinence. Sleep: good Stress: fluctuates Objective: Vital Signs Temp Pulse Resp BP Pulse Ox 36.3 C 66 16 135/60 H 95 02/26/18 20:00 02/26/18 20:00 02/26/18 20:00 02/26/18 20:00 02/26/18 20:00 Laboratory Results 02/20/18 06:00 02/20/18 06:00 02/25/18 02/26/18 02/27/18 05:59 05:59 05:59 Intake Total 700 880 568 Output Total 1300 1450 500 Balance -600 -570 68 Observation: Skin color pale/pink. Eyes clear, spirit high Slight difficulty with memory Pitting edema - Time Spent With Patient Time Spent With Patient: Acupuncture needle retention time one hour and 30 minutes. During acupuncture session patient fall asleep. ICD10 Worksheet Patient Problems: Problems Problem Status Onset Cerebrovascular accident (CVA) involving left cerebral hemisphere Acute
[2018-02-27] MEDS: INSULIN LISPRO 100 UNIT/ML SC SCH ×3 (08:16→17:33)
[2018-02-27] MEDS: NYSTATIN POWDER 15 GM BTL TP SCH ×3 (08:19→21:26)
[2018-02-27] MEDS: FLUTICASONE NASAL 120 SPRAYS/16 GM MDI EACHNARE SCH (08:27)
[2018-02-27] MEDS: PSYLLIUM METAMUCIL 1 PKT PO SCH (08:47)
[2018-02-27] MEDS: metFORMIN HCL 500 MG TAB PO SCH ×2 (08:49→17:24)
[2018-02-27] MEDS: CLOPIDOGREL BISULFATE 75 MG TAB PO SCH (08:49)
[2018-02-27] MEDS: ASPIRIN EC 81 MG TAB PO SCH (08:49)
[2018-02-27] MEDS: ATORVASTATIN CALCIUM 40 MG TAB PO SCH (08:49)
[2018-02-27] MEDS: FLUoxetine 20 MG CAP PO SCH (08:49)
[2018-02-27] MEDS: LISINOPRIL 20 MG TAB PO SCH (08:50)
[2018-02-27] MEDS: amLODIPine BESYLATE 5 MG TAB PO SCH (08:50)
[2018-02-27] MEDS: SOTALOL HCL 80 MG TAB PO SCH ×2 (08:50→21:26)
[2018-02-27] MEDS: TAMSULOSIN HCL 0.4 MG CAP PO SCH (08:53)
[2018-02-27] MEDS: GABAPENTIN 100 MG CAP PO SCH ×3 (08:54→21:26)
[2018-02-27] MEDS: ENOXAPARIN 40 MG/0.4 ML SYR SC SCH (08:55)
--- NOTE | 2018-02-27 09:59 | SOAPPROG ---
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 * Initial functional independence measure 38 on 02/06/2018, improved to 45 as of , and to 53 as of 02/18/2018. Remains at 53 on 02/25/2018. Moderate assist for bed mobility. Delayed balance reactions. Difficulty with multitasking and maintaining balance. Squat pivot transfer require moderate assistance. Ambulated 60 ft with front wheeled walker, AFO and 2 assist. Upper body dressing requires minimal to moderate assistance, lower body dressing requires maximal assistance. Poor motor planning. Bath transfer required total assist and toileting required total assist of 2. He was able to bathe with moderate assistance. He has recovered movement in all planes with the left upper extremity but not yet functional. * Continue PT and OT to optimize mobility and activities of daily living to the standby assist or contact guard assist level. Dysarthria and history of dementia. * Working memory is very impaired. Also with decreased attention, organization , initiation and problem-solving. * SLUMS improved from 08/07 to , consistent with mild neuro cognitive disorder. No decline in cognition noted with discontinuation of donepezil. * Continue Speech and Language Pathology. Secondary prevention of cerebrovascular accident/neuro recovery. * Continue aspirin, clopidogrel, blood pressure and lipid control. * Initiate fluoxetine for neuro recovery at 10 mg daily beginning 02/05/2018. Titrated to 20 mg p.o. daily starting 02/10/2018. Hypertension. Continue lisinopril 20 mg QD. Blood pressure is running slightly high. Increase amlodipine from 2.5 mg to 5 mg q.day starting 2017.. Diabetes mellitus type 2. * Increased metformin from 500 mg p.o. b.i.d to 850 mg BID starting 02/05/2018. Titrated further to 1000 mg twice daily starting 02/10/2018. * Increase sitagliptin from 50 mg q.day to 100 mg q.day starting 02/21/2018. * Continue insulin glargine 9 units at HS. Continue insulin lispro sliding scale. Goal is to titrate oral medications for no need of daytime insulin. * Per hospital discharge information, his hemoglobin A1c was 8.5%.Given his age and comorbidities, a reasonable goal would be 8%. Bowel and bladder incontinence. * Continue condom catheter at night. * Scheduled toileting. Trial of psyllium fiber supplement q.day as stool bulking agent starting 02/23/2018.. * No urinary retention. Discontinued donepezil starting 02/19/2018 without improvement in urinary frequency or decline in cognition. * Continues with frequent urination and defecation as often as q.1 hour through the day. Urinary frequency, premorbid. * Would not initiate bladder anticholinergic due to cognitive effects. * Consider trial of mirabegron, but it is not available through the hospital formulary. Weight loss in recent months. * Related to influenza, shingles and secondary Staphylococcus infection. * Consultation with dietitian. Fatigue. * Laboratory evaluation 02/20/2018 with normal renal and hepatic function and normal TSH. Anemia. New since admission to inpatient rehabilitation. * Not iron deficient, no macrocytosis. 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 Recheck p.r.n.. * Advise follow-up with Hematology after discharge. Dyslipidemia. Continue atorvastatin. History of cardiac dysrhythmia, unclear what the rhythm abnormality was. He is on sotalol, which also contributes to blood pressure control. Risk for QT prolongation with concurrent donepezil and sotalol. Reviewed EKG from [facility]. No QT prolongation. Donepezil has subsequently been discontinued. Possible peripheral vascular disease with cyanotic and cold feet. Secondary prevention for cerebrovascular accident and coronary artery disease will also serve to prevent worsening of circulation to his lower extremities. Cough, due to seasonal allergies. Continue cetirizine. Chronic leukocytosis. He had no signs or symptoms of infection in the hospital. The differential was primary lymphocytes, and the hospital physicians queried whether he has an underlying leukemia, and per hospital records, the reported that he had a long history of leukocytosis, had seen oncologist in [place], and no further evaluation or treatment was advised at that time. Spinal stenosis. He has been placed on spinal precautions. It is unclear if these are truly necessary, but it is worthwhile to prevent any complications from his L4-L5 grade 1 degenerative spondylolisthesis and severe acquired central canal stenosis. * Back pain improved with initiation of low-dose gabapentin. Prophylaxis. He is at elevated risk for DVT given his age and hemiparesis. Will initiate enoxaparin 40 mg subcutaneous daily and will provide sequential compression devices to his legs at night. DISPOSITION: Continues to need 24 hr care and ambulation is not functional. Son prefers to take him home though there are multiple steps to enter and within the house. Would need considerable home modifications. SNF remains an alternative. Family is visit and several SNFs. Continue discharge date of 03/06. FOLLOWUP: He had followup advised in 2 weeks with the neurologist in [place], Dr. Mcclure, though it seems likely that he will seek followup with a neurologist in [place] where his son lives. PRIMARY CARE PROVIDER: Mariela Matthews MD, in [place]. 02/27/18 11:48 Subjective: Continues to express frustration regarding slow progress. Had continence of bowels for several days but was incontinent today. Unclear if addition of fiber supplement has improved bowel continence. Otherwise without complaints. Sleeping well, not in pain. Objective: Vital Signs Temp Pulse Resp BP Pulse Ox 36.7 C 64 15 164/78 H 92 02/27/18 07:14 02/27/18 08:50 02/27/18 07:14 02/27/18 08:50 02/27/18 07:14 Laboratory Results 02/20/18 06:00 02/20/18 06:00 02/26/18 02/27/18 02/28/18 05:59 05:59 05:59 Intake Total 880 568 120 Output Total 1450 1300 350 Balance -570 -732 -230 Physical Exam - Physical Exam General Appearance: WD/WN, alert, no apparent distress Respiratory: normal breath sounds, No crackles, No rhonchi, No wheezing Cardiac/Chest: regular rate, rhythm, systolic murmur Skin: normal color, warm/dry Neuro/Psych: alert, normal mood/affect, oriented x 3, motor weakness (Starting to incorporate left upper extremity into gestures while talking.) ICD10 Worksheet Patient Problems: Problems Problem Status Onset Cerebrovascular accident (CVA) involving left cerebral hemisphere Acute - ICD10 Problem Qualifiers (1) Cerebrovascular accident (CVA) involving left cerebral hemisphere
[2018-02-27] MEDS: CETIRIZINE 10 MG TAB PO SCH (21:25)
[2018-02-27] MEDS: INSULIN GLARGINE 100 UNITS/ML UNIT SC SCH (21:25)
[2018-02-28] MEDS: ENOXAPARIN 40 MG/0.4 ML SYR SC SCH (07:23)
[2018-02-28] MEDS: INSULIN LISPRO 100 UNIT/ML SC SCH ×3 (07:33→18:27)
[2018-02-28] MEDS: metFORMIN HCL 500 MG TAB PO SCH ×2 (08:29→18:30)
[2018-02-28] MEDS: PSYLLIUM METAMUCIL 1 PKT PO SCH (08:30)
[2018-02-28] MEDS: ATORVASTATIN CALCIUM 40 MG TAB PO SCH (08:31)
[2018-02-28] MEDS: CLOPIDOGREL BISULFATE 75 MG TAB PO SCH (08:31)
[2018-02-28] MEDS: ASPIRIN EC 81 MG TAB PO SCH (08:31)
[2018-02-28] MEDS: DOCUSATE SODIUM 100 MG CAP PO SCH (08:31)
[2018-02-28] MEDS: FLUoxetine 20 MG CAP PO SCH (08:31)
[2018-02-28] MEDS: GABAPENTIN 100 MG CAP PO SCH ×3 (08:31→21:14)
[2018-02-28] MEDS: TAMSULOSIN HCL 0.4 MG CAP PO SCH (08:32)
[2018-02-28] MEDS: FLUTICASONE NASAL 120 SPRAYS/16 GM MDI EACHNARE SCH (09:26)
[2018-02-28] MEDS: LISINOPRIL 20 MG TAB PO SCH (09:27)
[2018-02-28] MEDS: amLODIPine BESYLATE 5 MG TAB PO SCH (09:27)
[2018-02-28] MEDS: SOTALOL HCL 80 MG TAB PO SCH ×2 (09:27→21:14)
--- NOTE | 2018-02-28 10:11 | SOAPPROG ---
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 * Initial functional independence measure 38 on 02/06/2018, improved to 45 as of , and to 53 as of 02/18/2018. Remains at 53 on 02/25/2018. Moderate assist for bed mobility. Delayed balance reactions. Difficulty with multitasking and maintaining balance. Squat pivot transfer require moderate assistance. Ambulated 60 ft with front wheeled walker, AFO and 2 assist. Upper body dressing requires minimal to moderate assistance, lower body dressing requires maximal assistance. Poor motor planning. Bath transfer required total assist and toileting required total assist of 2. He was able to bathe with moderate assistance. He has recovered movement in all planes with the left upper extremity but not yet functional. * Continue PT and OT to optimize mobility and activities of daily living to the standby assist or contact guard assist level. Dysarthria and history of dementia. * Working memory is very impaired. Also with decreased attention, organization , initiation and problem-solving. * SLUMS improved from 08/07 to , consistent with mild neuro cognitive disorder. No decline in cognition noted with discontinuation of donepezil. * Continue Speech and Language Pathology. Secondary prevention of cerebrovascular accident/neuro recovery. * Continue aspirin, clopidogrel, blood pressure and lipid control. * Initiate fluoxetine for neuro recovery at 10 mg daily beginning 02/05/2018. Titrated to 20 mg p.o. daily starting 02/10/2018. Hypertension. Continue lisinopril 20 mg QD. Blood pressure is running slightly high. Increase amlodipine from 2.5 mg to 5 mg q.day starting 2017.. Diabetes mellitus type 2. * Increased metformin from 500 mg p.o. b.i.d to 850 mg BID starting 02/05/2018. Titrated further to 1000 mg twice daily starting 02/10/2018. * Increase sitagliptin from 50 mg q.day to 100 mg q.day starting 02/21/2018. * Continue insulin glargine 9 units at HS. Continue insulin lispro sliding scale. Goal is to titrate oral medications for no need of daytime insulin. * Per hospital discharge information, his hemoglobin A1c was 8.5%.Given his age and comorbidities, a reasonable goal would be 8%. Bowel and bladder incontinence. * Continue condom catheter at night. * Scheduled toileting. Trial of psyllium fiber supplement q.day as stool bulking agent starting 02/23/2018.. * No urinary retention. Discontinued donepezil starting 02/19/2018 without improvement in urinary frequency or decline in cognition. * Continues with frequent urination and defecation as often as q.1 hour through the day. Urinary frequency, premorbid. * Would not initiate bladder anticholinergic due to cognitive effects. * Consider trial of mirabegron, but it is not available through the hospital formulary. Weight loss in recent months. * Related to influenza, shingles and secondary Staphylococcus infection. * Consultation with dietitian. Fatigue. * Laboratory evaluation 02/20/2018 with normal renal and hepatic function and normal TSH. Anemia. New since admission to inpatient rehabilitation. * Not iron deficient, no macrocytosis. 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 Recheck p.r.n.. * Advise follow-up with Hematology after discharge. Dyslipidemia. Continue atorvastatin. History of cardiac dysrhythmia, unclear what the rhythm abnormality was. He is on sotalol, which also contributes to blood pressure control. Risk for QT prolongation with concurrent donepezil and sotalol. Reviewed E[facility] from [facility]. No QT prolongation. Donepezil has subsequently been discontinued. Possible peripheral vascular disease with cyanotic and cold feet. Secondary prevention for cerebrovascular accident and coronary artery disease will also serve to prevent worsening of circulation to his lower extremities. Cough, due to seasonal allergies. Continue cetirizine. Chronic leukocytosis. He had no signs or symptoms of infection in the hospital. The differential was primary lymphocytes, and the hospital physicians queried whether he has an underlying leukemia, and per hospital records, the reported that he had a long history of leukocytosis, had seen oncologist in [place], and no further evaluation or treatment was advised at that time. Spinal stenosis. He has been placed on spinal precautions. It is unclear if these are truly necessary, but it is worthwhile to prevent any complications from his L4-L5 grade 1 degenerative spondylolisthesis and severe acquired central canal stenosis. * Back pain improved with initiation of low-dose gabapentin. Prophylaxis. He is at elevated risk for DVT given his age and hemiparesis. Will initiate enoxaparin 40 mg subcutaneous daily and will provide sequential compression devices to his legs at night. DISPOSITION: Continues to need 24 hr care and ambulation is not functional. Son prefers to take him home though there are multiple steps to enter and within the house. Would need considerable home modifications. SNF remains an alternative. Family to visit several SNFs. Continue discharge date of 2017. FOLLOWUP: He had followup advised in 2 weeks with the neurologist in [place], Dr. Mcclure, though it seems likely that he will seek followup with a neurologist in [place] where his son lives. PRIMARY CARE PROVIDER: Mariela Matthews MD, in [place]. May need to consider an increase of pt's amlodipine given persistently in the 160's systolic. Today at 118 so will monitor today - if continues then will increase to 10mg. 02/28/18 10:09 02/28/18 10:12 Subjective: Feeling well today -had some good/thoughtful questions about strokes and prevention strategies. No nausea/emesis, NO fevers/chills. Objective: Vital Signs Temp Pulse Resp BP Pulse Ox 97.4 F 63 12 118/58 L 96 02/28/18 06:15 02/28/18 09:24 02/28/18 06:15 02/28/18 09:24 02/28/18 09:24 Laboratory Results 02/20/18 06:00 02/20/18 06:00 02/27/18 02/28/18 03/01/18 05:59 05:59 05:59 Intake Total 568 1020 150 Output Total 1300 8135 450 Balance -732 -655 -300 Physical Exam - Physical Exam General Appearance: alert, no apparent distress, other (up at the breakfast table) EENT: PERRL/EOMI Neck: full range of motion Respiratory: lungs clear Cardiac/Chest: regular rate, rhythm Abdomen: normal bowel sounds, non-tender Neuro/Psych: alert, normal mood/affect ICD10 Worksheet Patient Problems: Problems Problem Status Onset Cerebrovascular accident (CVA) involving left cerebral hemisphere Acute
[2018-02-28] MEDS: NYSTATIN POWDER 15 GM BTL TP SCH ×3 (13:44→21:14)
[2018-02-28] MEDS: CETIRIZINE 10 MG TAB PO SCH (21:13)
[2018-02-28] MEDS: INSULIN GLARGINE 100 UNITS/ML UNIT SC SCH (21:13)
[2018-03-01] MEDS: PSYLLIUM METAMUCIL 1 PKT PO SCH (08:33)
[2018-03-01] MEDS: amLODIPine BESYLATE 5 MG TAB PO SCH (08:34)
[2018-03-01] MEDS: metFORMIN HCL 500 MG TAB PO SCH ×2 (08:34→17:47)
[2018-03-01] MEDS: ATORVASTATIN CALCIUM 40 MG TAB PO SCH (08:38)
[2018-03-01] MEDS: ASPIRIN EC 81 MG TAB PO SCH (08:38)
[2018-03-01] MEDS: CLOPIDOGREL BISULFATE 75 MG TAB PO SCH (08:38)
[2018-03-01] MEDS: GABAPENTIN 100 MG CAP PO SCH ×3 (08:39→20:13)
[2018-03-01] MEDS: FLUoxetine 20 MG CAP PO SCH (08:39)
[2018-03-01] MEDS: LISINOPRIL 20 MG TAB PO SCH (08:39)
[2018-03-01] MEDS: TAMSULOSIN HCL 0.4 MG CAP PO SCH (08:41)
[2018-03-01] MEDS: SOTALOL HCL 80 MG TAB PO SCH ×2 (08:41→20:15)
[2018-03-01] MEDS: INSULIN LISPRO 100 UNIT/ML SC SCH ×3 (08:44→16:57)
[2018-03-01] MEDS: ENOXAPARIN 40 MG/0.4 ML SYR SC SCH (09:04)
[2018-03-01] MEDS: FLUTICASONE NASAL 120 SPRAYS/16 GM MDI EACHNARE SCH (11:08)
[2018-03-01] MEDS: NYSTATIN POWDER 15 GM BTL TP SCH ×3 (11:09→20:13)
--- NOTE | 2018-03-01 11:44 | SOAPPROG ---
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 * Initial functional independence measure 38 on 02/06/2018, improved to 45 as of , and to 53 as of 02/18/2018. Remains at 53 on 02/25/2018. Moderate assist for bed mobility. Delayed balance reactions. Difficulty with multitasking and maintaining balance. Squat pivot transfer require moderate assistance. Ambulated 60 ft with front wheeled walker, AFO and 2 assist. Upper body dressing requires minimal to moderate assistance, lower body dressing requires maximal assistance. Poor motor planning. Bath transfer required total assist and toileting required total assist of 2. He was able to bathe with moderate assistance. He has recovered movement in all planes with the left upper extremity but not yet functional. * Continue PT and OT to optimize mobility and activities of daily living to the standby assist or contact guard assist level. Dysarthria and history of dementia. * Working memory is very impaired. Also with decreased attention, organization , initiation and problem-solving. * SLUMS improved from 08/07 to , consistent with mild neuro cognitive disorder. No decline in cognition noted with discontinuation of donepezil. * Continue Speech and Language Pathology. Secondary prevention of cerebrovascular accident/neuro recovery. * Continue aspirin, clopidogrel, blood pressure and lipid control. * Initiate fluoxetine for neuro recovery at 10 mg daily beginning 02/05/2018. Titrated to 20 mg p.o. daily starting 02/10/2018. Hypertension. Continue lisinopril 20 mg QD. Blood pressure is running slightly high. Increase amlodipine from 2.5 mg to 5 mg q.day starting 2017.. Diabetes mellitus type 2. * Increased metformin from 500 mg p.o. b.i.d to 850 mg BID starting 02/05/2018. Titrated further to 1000 mg twice daily starting 02/10/2018. * Increase sitagliptin from 50 mg q.day to 100 mg q.day starting 02/21/2018. * Continue insulin glargine 9 units at HS. Continue insulin lispro sliding scale. Goal is to titrate oral medications for no need of daytime insulin. * Per hospital discharge information, his hemoglobin A1c was 8.5%.Given his age and comorbidities, a reasonable goal would be 8%. Bowel and bladder incontinence. * Continue condom catheter at night. * Scheduled toileting. Trial of psyllium fiber supplement q.day as stool bulking agent starting 02/23/2018.. * No urinary retention. Discontinued donepezil starting 02/19/2018 without improvement in urinary frequency or decline in cognition. * Continues with frequent urination and defecation as often as q.1 hour through the day. Urinary frequency, premorbid. * Would not initiate bladder anticholinergic due to cognitive effects. * Consider trial of mirabegron, but it is not available through the hospital formulary. Weight loss in recent months. * Related to influenza, shingles and secondary Staphylococcus infection. * Consultation with dietitian. Fatigue. * Laboratory evaluation 02/20/2018 with normal renal and hepatic function and normal TSH. Anemia. New since admission to inpatient rehabilitation. * Not iron deficient, no macrocytosis. 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 Recheck p.r.n.. * Advise follow-up with Hematology after discharge. Dyslipidemia. Continue atorvastatin. History of cardiac dysrhythmia, unclear what the rhythm abnormality was. He is on sotalol, which also contributes to blood pressure control. Risk for QT prolongation with concurrent donepezil and sotalol. Reviewed EKG from [facility]. No QT prolongation. Donepezil has subsequently been discontinued. Possible peripheral vascular disease with cyanotic and cold feet. Secondary prevention for cerebrovascular accident and coronary artery disease will also serve to prevent worsening of circulation to his lower extremities. Cough, due to seasonal allergies. Continue cetirizine. Chronic leukocytosis. He had no signs or symptoms of infection in the hospital. The differential was primary lymphocytes, and the hospital physicians queried whether he has an underlying leukemia, and per hospital records, the reported that he had a long history of leukocytosis, had seen oncologist in [place], and no further evaluation or treatment was advised at that time. Spinal stenosis. He has been placed on spinal precautions. It is unclear if these are truly necessary, but it is worthwhile to prevent any complications from his L4-L5 grade 1 degenerative spondylolisthesis and severe acquired central canal stenosis. * Back pain improved with initiation of low-dose gabapentin. Prophylaxis. He is at elevated risk for DVT given his age and hemiparesis. Will initiate enoxaparin 40 mg subcutaneous daily and will provide sequential compression devices to his legs at night. DISPOSITION: Continues to need 24 hr care and ambulation is not functional. Son prefers to take him home though there are multiple steps to enter and within the house. Would need considerable home modifications. SNF remains an alternative. Family to visit several SNFs. Continue discharge date of 2017. FOLLOWUP: He had followup advised in 2 weeks with the neurologist in [place], Dr. Mcclure, though it seems likely that he will seek followup with a neurologist in [place] where his son lives. PRIMARY CARE PROVIDER: Mariela Matthews MD, in [place]. Doing well today - BP has been well maintained over the last 24hrs - will not increase his amlodipine and continue to monitor. Had good discussion with patient about celebrating the victories rather than focusing on the "disability ". No new neurologic changes. 03/01/18 11:41 Subjective: Feels pretty good - no fevers/chills. No new weakness/sensory changes. Having good BM's - overall appetite is a little down but he continues to tolerate PO well. Anxious to make better improvement than he has up to this point. Objective: Vital Signs Temp Pulse Resp BP Pulse Ox 97.7 F 62 14 118/58 L 94 03/01/18 06:36 03/01/18 08:36 03/01/18 06:36 03/01/18 08:36 03/01/18 08:36 Laboratory Results 02/20/18 06:00 02/20/18 06:00 02/28/18 03/01/18 03/02/18 05:59 05:59 05:59 Intake Total 1020 500 360 Output Total 1675 1600 Balance -655 -1100 360 Physical Exam - Physical Exam General Appearance: alert, no apparent distress EENT: other (MMM) Respiratory: lungs clear, normal breath sounds Cardiac/Chest: regular rate, rhythm Abdomen: normal bowel sounds, non-tender, soft Skin: normal color Extremities: other (no LE edema) Neuro/Psych: normal mood/affect ICD10 Worksheet Patient Problems: Problems Problem Status Onset Cerebrovascular accident (CVA) involving left cerebral hemisphere Acute
[2018-03-01] MEDS: CETIRIZINE 10 MG TAB PO SCH (20:13)
[2018-03-01] MEDS: INSULIN GLARGINE 100 UNITS/ML UNIT SC SCH (20:14)
[2018-03-02] MEDS: ENOXAPARIN 40 MG/0.4 ML SYR SC SCH (08:29)
[2018-03-02] MEDS: GABAPENTIN 100 MG CAP PO SCH ×3 (08:35→22:05)
[2018-03-02] MEDS: FLUoxetine 20 MG CAP PO SCH (08:35)
[2018-03-02] MEDS: TAMSULOSIN HCL 0.4 MG CAP PO SCH (08:35)
[2018-03-02] MEDS: ATORVASTATIN CALCIUM 40 MG TAB PO SCH (08:35)
[2018-03-02] MEDS: DOCUSATE SODIUM 100 MG CAP PO SCH (08:35)
[2018-03-02] MEDS: ASPIRIN EC 81 MG TAB PO SCH (08:35)
[2018-03-02] MEDS: metFORMIN HCL 500 MG TAB PO SCH ×2 (08:35→17:41)
[2018-03-02] MEDS: CLOPIDOGREL BISULFATE 75 MG TAB PO SCH (08:36)
[2018-03-02] MEDS: INSULIN LISPRO 100 UNIT/ML SC SCH ×3 (08:42→17:41)
[2018-03-02] MEDS: NYSTATIN POWDER 15 GM BTL TP SCH ×3 (08:43→22:06)
[2018-03-02] MEDS: PSYLLIUM METAMUCIL 1 PKT PO SCH (08:43)
[2018-03-02] MEDS: FLUTICASONE NASAL 120 SPRAYS/16 GM MDI EACHNARE SCH (08:44)
[2018-03-02] MEDS: SOTALOL HCL 80 MG TAB PO SCH ×2 (09:02→22:05)
[2018-03-02] MEDS: LISINOPRIL 20 MG TAB PO SCH (09:02)
[2018-03-02] MEDS: amLODIPine BESYLATE 5 MG TAB PO SCH (09:03)
--- NOTE | 2018-03-02 11:06 | SOAPPROG ---
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 * Initial functional independence measure 38 on 02/06/2018, improved to 45 as of , and to 53 as of 02/18/2018. Remains at 53 on 02/25/2018. Moderate assist for bed mobility. Delayed balance reactions. Difficulty with multitasking and maintaining balance. Squat pivot transfer require moderate assistance. Ambulated 60 ft with front wheeled walker, AFO and 2 assist. Upper body dressing requires minimal to moderate assistance, lower body dressing requires maximal assistance. Poor motor planning. Bath transfer required total assist and toileting required total assist of 2. He was able to bathe with moderate assistance. He has recovered movement in all planes with the left upper extremity but not yet functional. * As of 03/02/2018, ambulation improving to 1 person assist. * Continue PT and OT to optimize mobility and activities of daily living to the standby assist or contact guard assist level. Dysarthria and history of dementia. * Working memory is very impaired. Also with decreased attention, organization , initiation and problem-solving. * SLUMS improved from 08/07 to , consistent with mild neuro cognitive disorder. No decline in cognition noted with discontinuation of donepezil. * Continue Speech and Language Pathology. Secondary prevention of cerebrovascular accident/neuro recovery. * Continue aspirin, clopidogrel, blood pressure and lipid control. * Initiate fluoxetine for neuro recovery at 10 mg daily beginning 02/05/2018. Titrated to 20 mg p.o. daily starting 02/10/2018. Hypertension. Continue lisinopril 20 mg QD. Blood pressure is running slightly high. Increased amlodipine from 2.5 mg to 5 mg q.day starting 2017.. Diabetes mellitus type 2. * Increased metformin from 500 mg p.o. b.i.d to 850 mg BID starting 02/05/2018. Titrated further to 1000 mg twice daily starting 02/10/2018. * Increase sitagliptin from 50 mg q.day to 100 mg q.day starting 02/21/2018. * Continue insulin glargine 9 units at HS. Continue insulin lispro sliding scale. Goal is to titrate oral medications for no need of daytime insulin. * Per hospital discharge information, his hemoglobin A1c was 8.5%.Given his age and comorbidities, a reasonable goal would be 8%. Bowel and bladder incontinence. * Continue condom catheter at night. * Scheduled toileting. Trial of psyllium fiber supplement q.day as stool bulking agent starting 02/23/2018.. * No urinary retention. Discontinued donepezil starting 02/19/2018 without improvement in urinary frequency or decline in cognition. * Continues with frequent urination and defecation as often as q.1 hour through the day. Urinary frequency, premorbid. * Would not initiate bladder anticholinergic due to cognitive effects. * Consider trial of mirabegron, but it is not available through the hospital formulary. Weight loss in recent months. * Related to influenza, shingles and secondary Staphylococcus infection. * Consultation with dietitian. Fatigue. * Laboratory evaluation 02/20/2018 with normal renal and hepatic function and normal TSH. Anemia. New since admission to inpatient rehabilitation. * Not iron deficient, no macrocytosis. 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 Recheck p.r.n.. * Advise follow-up with Hematology after discharge. Dyslipidemia. Continue atorvastatin. History of cardiac dysrhythmia, unclear what the rhythm abnormality was. He is on sotalol, which also contributes to blood pressure control. Risk for QT prolongation with concurrent donepezil and sotalol. Reviewed EKG from [facility]. No QT prolongation. Donepezil has subsequently been discontinued. Possible peripheral vascular disease with cyanotic and cold feet. Secondary prevention for cerebrovascular accident and coronary artery disease will also serve to prevent worsening of circulation to his lower extremities. Cough, due to seasonal allergies. Continue cetirizine. Chronic leukocytosis. He had no signs or symptoms of infection in the hospital. The differential was primary lymphocytes, and the hospital physicians queried whether he has an underlying leukemia, and per hospital records, the reported that he had a long history of leukocytosis, had seen oncologist in [place], and no further evaluation or treatment was advised at that time. Spinal stenosis. He has been placed on spinal precautions. It is unclear if these are truly necessary, but it is worthwhile to prevent any complications from his L4-L5 grade 1 degenerative spondylolisthesis and severe acquired central canal stenosis. * Back pain improved with initiation of low-dose gabapentin. Prophylaxis. He is at elevated risk for DVT given his age and hemiparesis. Will initiate enoxaparin 40 mg subcutaneous daily and will provide sequential compression devices to his legs at night. DISPOSITION: Continues to need 24 hr care and ambulation is not functional. Son prefers to take him home though there are multiple steps to enter and within the house. Would need considerable home modifications. SNF remains an alternative. Family is visiting several SNFs. Continue discharge date of 2017. FOLLOWUP: He had followup advised in 2 weeks with the neurologist in [place], Dr. Mcclure, though it seems likely that he will seek followup with a neurologist in [place] where his son lives. PRIMARY CARE PROVIDER: Mariela Matthews MD, in [place]. 03/02/18 11:03 Subjective: No complaints. Therapy notes indicate improved use of left upper extremity. He continues to report frustration and his slow pace of improvement. Objective: Vital Signs Temp Pulse Resp BP Pulse Ox 36.5 C 64 15 100/52 L 95 03/02/18 06:10 03/02/18 09:02 03/02/18 06:10 03/02/18 09:03 03/02/18 06:10 Laboratory Results 02/20/18 06:00 02/20/18 06:00 03/01/18 03/02/18 03/03/18 05:59 05:59 05:59 Intake Total 500 1010 600 Output Total 1600 1400 Balance -1100 -390 600 Physical Exam - Physical Exam General Appearance: WD/WN, alert, no apparent distress Respiratory: No respiratory distress, No accessory muscle use Skin: normal color, warm/dry Neuro/Psych: alert, normal mood/affect, oriented x 3, motor weakness (Left upper and lower extremity. Improved volitional movement of the left upper extremity including finger flexion and finger extension.) ICD10 Worksheet Patient Problems: Problems Problem Status Onset Cerebrovascular accident (CVA) involving left cerebral hemisphere Acute - ICD10 Problem Qualifiers (1) Cerebrovascular accident (CVA) involving left cerebral hemisphere
[2018-03-02] MEDS: CETIRIZINE 10 MG TAB PO SCH (22:06)
[2018-03-02] MEDS: INSULIN GLARGINE 100 UNITS/ML UNIT SC SCH (22:06)
[2018-03-03] MEDS: ENOXAPARIN 40 MG/0.4 ML SYR SC SCH (07:42)
[2018-03-03] MEDS: TAMSULOSIN HCL 0.4 MG CAP PO SCH (07:54)
[2018-03-03] MEDS: metFORMIN HCL 500 MG TAB PO SCH ×2 (07:54→17:18)
[2018-03-03] MEDS: FLUoxetine 20 MG CAP PO SCH (07:54)
[2018-03-03] MEDS: ATORVASTATIN CALCIUM 40 MG TAB PO SCH (07:54)
[2018-03-03] MEDS: ASPIRIN EC 81 MG TAB PO SCH (07:54)
[2018-03-03] MEDS: CLOPIDOGREL BISULFATE 75 MG TAB PO SCH (07:54)
[2018-03-03] MEDS: LISINOPRIL 20 MG TAB PO SCH (07:55)
[2018-03-03] MEDS: INSULIN LISPRO 100 UNIT/ML SC SCH ×3 (07:57→22:50)
[2018-03-03] MEDS: PSYLLIUM METAMUCIL 1 PKT PO SCH (07:57)
[2018-03-03] MEDS: GABAPENTIN 100 MG CAP PO SCH ×3 (08:00→21:06)
[2018-03-03] MEDS: SOTALOL HCL 80 MG TAB PO SCH ×2 (08:00→21:06)
[2018-03-03] MEDS: NYSTATIN POWDER 15 GM BTL TP SCH ×3 (08:09→21:07)
[2018-03-03] MEDS: FLUTICASONE NASAL 120 SPRAYS/16 GM MDI EACHNARE SCH (08:09)
--- NOTE | 2018-03-03 14:05 | SOAPPROG ---
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 * Initial functional independence measure 38 on 02/06/2018, improved to 45 as of , and to 53 as of 02/18/2018. Remains at 53 on 02/25/2018. Moderate assist for bed mobility. Delayed balance reactions. Difficulty with multitasking and maintaining balance. Squat pivot transfer require moderate assistance. Ambulated 60 ft with front wheeled walker, AFO and 2 assist. Upper body dressing requires minimal to moderate assistance, lower body dressing requires maximal assistance. Poor motor planning. Bath transfer required total assist and toileting required total assist of 2. He was able to bathe with moderate assistance. He has recovered movement in all planes with the left upper extremity but not yet functional. * As of 03/02/2018, ambulation improving to 1 person assist. * Continue PT and OT to optimize mobility and activities of daily living to the standby assist or contact guard assist level. Dysarthria and history of dementia. * Working memory is very impaired. Also with decreased attention, organization , initiation and problem-solving. * SLUMS improved from 08/07 to , consistent with mild neuro cognitive disorder. * Restart donepezil 5 mg at bedtime on 03/03/2018. * Continue Speech and Language Pathology. Secondary prevention of cerebrovascular accident/neuro recovery. * Continue aspirin, clopidogrel, blood pressure and lipid control. * Initiate fluoxetine for neuro recovery at 10 mg daily beginning 02/05/2018. Titrated to 20 mg p.o. daily starting 02/10/2018. Hypertension. Has had low blood pressures on lisinopril 20 mg q.day plus amlodipine 5 mg q.day but high blood pressure when amlodipine was at 2.5 mg q.day. * Discontinue amlodipine starting 03/02/2018. * Increase lisinopril to 30 mg daily starting 03/03/2018. Diabetes mellitus type 2. * Increased metformin from 500 mg p.o. b.i.d to 850 mg BID starting 02/05/2018. Titrated further to 1000 mg twice daily starting 02/10/2018. * Increase sitagliptin from 50 mg q.day to 100 mg q.day starting 02/21/2018. * Continue insulin glargine 9 units at HS. Continue insulin lispro sliding scale. Goal is to titrate oral medications for no need of daytime insulin. * Per hospital discharge information, his hemoglobin A1c was 8.5%.Given his age and comorbidities, a reasonable goal would be 8%. Bowel and bladder incontinence. * Continue condom catheter at night. * Scheduled toileting. Trial of psyllium fiber supplement q.day as stool bulking agent starting 02/23/2018.. * No urinary retention. Discontinued donepezil starting 02/19/2018 without improvement in urinary frequency. * Continues with frequent urination and defecation as often as q.1 hour through the day. Urinary frequency, premorbid. * Would not initiate bladder anticholinergic due to cognitive effects. * Consider trial of mirabegron, but it is not available through the hospital formulary. Weight loss in recent months. * Related to influenza, shingles and secondary Staphylococcus infection. * Consultation with dietitian. Fatigue. * Laboratory evaluation 02/20/2018 with normal renal and hepatic function and normal TSH. Anemia. New since admission to inpatient rehabilitation. * Not iron deficient, no macrocytosis. 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 Recheck p.r.n.. * Advise follow-up with Hematology after discharge. Dyslipidemia. Continue atorvastatin. History of cardiac dysrhythmia, unclear what the rhythm abnormality was. He is on sotalol, which also contributes to blood pressure control. Risk for QT prolongation with concurrent donepezil and sotalol. Reviewed EKG from [facility]. No QT prolongation. Possible peripheral vascular disease with cyanotic and cold feet. Secondary prevention for cerebrovascular accident and coronary artery disease will also serve to prevent worsening of circulation to his lower extremities. Cough, due to seasonal allergies. Has been taking cetirizine for 2 weeks. Trial of discontinuation starting 03/04/2018. Restart if he has recurrence of symptoms. Chronic leukocytosis. He had no signs or symptoms of infection in the hospital. The differential was primary lymphocytes, and the hospital physicians queried whether he has an underlying leukemia, and per hospital records, the reported that he had a long history of leukocytosis, had seen oncologist in [place], and no further evaluation or treatment was advised at that time. Spinal stenosis. He has been placed on spinal precautions. It is unclear if these are truly necessary, but it is worthwhile to prevent any complications from his L4-L5 grade 1 degenerative spondylolisthesis and severe acquired central canal stenosis. * Back pain improved with initiation of low-dose gabapentin. Prophylaxis. He is at elevated risk for DVT given his age and hemiparesis. Will initiate enoxaparin 40 mg subcutaneous daily and will provide sequential compression devices to his legs at night. DISPOSITION: Continues to need 24 hr care and ambulation is not functional. Son prefers to take him home though there are multiple steps to enter and within the house. Would need considerable home modifications. SNF remains an alternative. Family is visiting several SNFs. Continue discharge date of 2017. FOLLOWUP: He had followup advised in 2 weeks with the neurologist in [place], Dr. Mcclure, though it seems likely that he will seek followup with a neurologist in [place] where his son lives. PRIMARY CARE PROVIDER: Mariela Matthews MD, in [place]. Condition and plan discussed in detail with patient's daughter Jeaneth, 2017. 03/03/18 14:05 Subjective: Frustrated by difficulty with crossword puzzle today with [employer]. Says he did well in the 1st part of his session, testing recall. Otherwise without complaints. Not in pain. Good appetite. Bowels are moving. No fevers or chills. Objective: Vital Signs Temp Pulse Resp BP Pulse Ox 36.4 C 61 16 126/60 H 92 03/03/18 07:55 03/03/18 08:00 03/03/18 07:55 03/03/18 08:00 03/03/18 07:55 Laboratory Results 02/20/18 06:00 02/20/18 06:00 03/02/18 03/03/18 03/04/18 05:59 05:59 05:59 Intake Total 1010 1020 600 Output Total 1400 1126 300 Balance -390 -106 300 Physical Exam - Physical Exam General Appearance: WD/WN, alert, no apparent distress Respiratory: No respiratory distress, No accessory muscle use Skin: normal color, warm/dry Neuro/Psych: alert, normal mood/affect, oriented x 3, motor weakness (Moves left upper extremity in all planes.) ICD10 Worksheet Patient Problems: Problems Problem Status Onset Cerebrovascular accident (CVA) involving left cerebral hemisphere Acute - ICD10 Problem Qualifiers (1) Cerebrovascular accident (CVA) involving left cerebral hemisphere
[2018-03-03] MEDS: INSULIN GLARGINE 100 UNITS/ML UNIT SC SCH (21:06)
[2018-03-03] MEDS: DONEPEZIL HCL 5 MG TAB PO SCH (21:07)
[2018-03-04] MEDS: ENOXAPARIN 40 MG/0.4 ML SYR SC SCH (07:57)
[2018-03-04] MEDS: INSULIN LISPRO 100 UNIT/ML SC SCH ×3 (08:01→17:02)
[2018-03-04] MEDS: metFORMIN HCL 500 MG TAB PO SCH ×2 (08:03→17:02)
[2018-03-04] MEDS: ATORVASTATIN CALCIUM 40 MG TAB PO SCH (08:03)
[2018-03-04] MEDS: GABAPENTIN 100 MG CAP PO SCH ×3 (08:03→20:22)
[2018-03-04] MEDS: DOCUSATE SODIUM 100 MG CAP PO SCH (08:03)
[2018-03-04] MEDS: TAMSULOSIN HCL 0.4 MG CAP PO SCH (08:03)
[2018-03-04] MEDS: ASPIRIN EC 81 MG TAB PO SCH (08:03)
[2018-03-04] MEDS: CLOPIDOGREL BISULFATE 75 MG TAB PO SCH (08:04)
[2018-03-04] MEDS: LISINOPRIL 20 MG TAB PO SCH (08:04)
[2018-03-04] MEDS: SOTALOL HCL 80 MG TAB PO SCH ×2 (08:04→20:22)
[2018-03-04] MEDS: FLUoxetine 20 MG CAP PO SCH (08:04)
[2018-03-04] MEDS: PSYLLIUM METAMUCIL 1 PKT PO SCH (08:06)
[2018-03-04] MEDS: NYSTATIN POWDER 15 GM BTL TP SCH ×3 (08:18→20:22)
[2018-03-04] MEDS: FLUTICASONE NASAL 120 SPRAYS/16 GM MDI EACHNARE SCH (08:18)
--- NOTE | 2018-03-04 12:41 | SOAPPROG ---
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 * Initial functional independence measure 38 on 02/06/2018, improved to 45 as of , and to 53 as of 02/18/2018. Remains at 53 on 02/25/2018. Improved to 58 as of 03/04/2018. Moderate assistance for bed mobility, transfers, and sit to stand. Ambulated 60 ft with moderate assistance and 2nd person following with wheelchair. Upper body dressing required minimal to moderate assistance, lower body dressing required mom moderate assistance with cues but maximal assistance for his left shoe and AFO. Shower transfer still accomplished with shower wheelchair. Toileting requires maximal assist. Left upper extremity movement is improving but he is apraxic. * As of 03/02/2018, ambulation improving to 1 person assist. * Continue PT and OT to optimize mobility and activities of daily living to the standby assist or contact guard assist level. Dysarthria and history of dementia. * Working memory is very impaired. Also with decreased attention, organization , initiation and problem-solving. * SLUMS improved from 08/07 to , consistent with mild neuro cognitive disorder. * Restart donepezil 5 mg at bedtime on 03/03/2018. * Continue Speech and Language Pathology. Secondary prevention of cerebrovascular accident/neuro recovery. * Continue aspirin, clopidogrel, blood pressure and lipid control. * Initiate fluoxetine for neuro recovery at 10 mg daily beginning 02/05/2018. Titrated to 20 mg p.o. daily starting 02/10/2018. Hypertension. Has had low blood pressures on lisinopril 20 mg q.day plus amlodipine 5 mg q.day but high blood pressure when amlodipine was at 2.5 mg q.day. * Discontinue amlodipine starting 03/02/2018. * Increased lisinopril to 30 mg daily starting 03/03/2018. * Blood pressure is controlled. Diabetes mellitus type 2. * Increased metformin from 500 mg p.o. b.i.d to 850 mg BID starting 02/05/2018. Titrated further to 1000 mg twice daily starting 02/10/2018. * Increase sitagliptin from 50 mg q.day to 100 mg q.day starting 02/21/2018. * Continue insulin glargine 9 units at HS. Continue insulin lispro sliding scale. Goal is to titrate oral medications for no need of daytime insulin. * Per hospital discharge information, his hemoglobin A1c was 8.5%.Given his age and comorbidities, a reasonable goal would be 8%. Bowel and bladder incontinence. * Continue condom catheter at night. * Scheduled toileting. Trial of psyllium fiber supplement q.day as stool bulking agent starting 02/23/2018. Fecal incontinence has resolved. * No urinary retention. Discontinued donepezil starting 02/19/2018 without improvement in urinary frequency. * Continues with frequent urination as often as q.1 hour through the day. Urinary frequency, premorbid. * Would not initiate bladder anticholinergic due to cognitive effects. * Consider trial of mirabegron, but it is not available through the hospital formulary. Weight loss in recent months. * Related to influenza, shingles and secondary Staphylococcus infection. * Consultation with dietitian. Fatigue. * Laboratory evaluation 02/20/2018 with normal renal and hepatic function and normal TSH. Anemia. New since admission to inpatient rehabilitation. * Not iron deficient, no macrocytosis. 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 Recheck p.r.n.. * Advise follow-up with Hematology after discharge. Dyslipidemia. Continue atorvastatin. History of cardiac dysrhythmia, unclear what the rhythm abnormality was. He is on sotalol, which also contributes to blood pressure control. Risk for QT prolongation with concurrent donepezil and sotalol. Reviewed EKG from [facility]. No QT prolongation. Possible peripheral vascular disease with cyanotic and cold feet. Secondary prevention for cerebrovascular accident and coronary artery disease will also serve to prevent worsening of circulation to his lower extremities. Cough, due to seasonal allergies. Has been taking cetirizine for 2 weeks. Trial of discontinuation starting 03/04/2018. Restart if he has recurrence of symptoms. Chronic leukocytosis. He had no signs or symptoms of infection in the hospital. The differential was primary lymphocytes, and the hospital physicians queried whether he has an underlying leukemia, and per hospital records, the reported that he had a long history of leukocytosis, had seen oncologist in [place], and no further evaluation or treatment was advised at that time. Spinal stenosis. He has been placed on spinal precautions. It is unclear if these are truly necessary, but it is worthwhile to prevent any complications from his L4-L5 grade 1 degenerative spondylolisthesis and severe acquired central canal stenosis. * Back pain improved with initiation of low-dose gabapentin. Prophylaxis. He is at elevated risk for DVT given his age and hemiparesis. Will initiate enoxaparin 40 mg subcutaneous daily and will provide sequential compression devices to his legs at night. DISPOSITION: Attended staffing, 15 min. Discussed with case management, dietitian, nursing, PT, OT, [employer]. Continues to need 24 hr care and ambulation is not functional. Family is visiting several SNFs. Continue discharge date of 03/06/2018. FOLLOWUP: He had followup advised in 2 weeks with the neurologist in [place], Dr. Mcclure, though it seems likely that he will seek followup with a neurologist in [place] where his son lives. PRIMARY CARE PROVIDER: Mariela Matthews MD, in [place]. 03/04/18 12:37 Subjective: No complaints today. Sleeping well. Not in pain. No cough or dyspnea, no fevers or chills. Objective: Vital Signs Temp Pulse Resp BP Pulse Ox 37.1 C 62 18 122/58 H 95 03/04/18 07:36 03/04/18 08:04 03/04/18 07:36 03/04/18 08:04 03/04/18 07:36 Laboratory Results 02/20/18 06:00 02/20/18 06:00 03/03/18 03/04/18 03/05/18 05:59 05:59 05:59 Intake Total 1020 836 650 Output Total 1126 5833 250 Balance -106 -664 400 - Time Spent With Patient Time Spent With Patient: Greater than 35 min floor time today, including more than 50% of time in coordination of care during staffing meeting, and counseling patient. Physical Exam - Physical Exam General Appearance: WD/WN, alert, no apparent distress Respiratory: normal breath sounds, No crackles, No rhonchi, No wheezing Cardiac/Chest: regular rate, rhythm, systolic murmur, No edema Skin: normal color, warm/dry Neuro/Psych: alert, normal mood/affect, oriented x 3, motor weakness (Left upper and lower extremities. Improvement in movement of the left upper extremity.) ICD10 Worksheet Patient Problems: Problems Problem Status Onset Cerebrovascular accident (CVA) involving left cerebral hemisphere Acute - ICD10 Problem Qualifiers (1) Cerebrovascular accident (CVA) involving left cerebral hemisphere
[2018-03-04] MEDS: INSULIN GLARGINE 100 UNITS/ML UNIT SC SCH (20:22)
[2018-03-04] MEDS: DONEPEZIL HCL 5 MG TAB PO SCH (20:22)
[2018-03-05] MEDS: LISINOPRIL 20 MG TAB PO SCH (08:24)
[2018-03-05] MEDS: CLOPIDOGREL BISULFATE 75 MG TAB PO SCH (08:24)
[2018-03-05] MEDS: TAMSULOSIN HCL 0.4 MG CAP PO SCH (08:24)
[2018-03-05] MEDS: NYSTATIN POWDER 15 GM BTL TP SCH ×3 (08:24→20:55)
[2018-03-05] MEDS: FLUTICASONE NASAL 120 SPRAYS/16 GM MDI EACHNARE SCH (08:24)
[2018-03-05] MEDS: FLUoxetine 20 MG CAP PO SCH (08:25)
[2018-03-05] MEDS: INSULIN LISPRO 100 UNIT/ML SC SCH ×3 (08:25→19:06)
[2018-03-05] MEDS: ENOXAPARIN 40 MG/0.4 ML SYR SC SCH (08:25)
[2018-03-05] MEDS: SOTALOL HCL 80 MG TAB PO SCH ×2 (08:26→20:55)
[2018-03-05] MEDS: GABAPENTIN 100 MG CAP PO SCH ×3 (08:26→20:55)
[2018-03-05] MEDS: ASPIRIN EC 81 MG TAB PO SCH (08:27)
[2018-03-05] MEDS: ATORVASTATIN CALCIUM 40 MG TAB PO SCH (08:27)
[2018-03-05] MEDS: metFORMIN HCL 500 MG TAB PO SCH ×2 (08:27→18:10)
[2018-03-05] MEDS: PSYLLIUM METAMUCIL 1 PKT PO SCH (08:30)
--- NOTE | 2018-03-05 14:32 | SOAPPROG ---
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 * Initial functional independence measure 38 on 02/06/2018, improved to 45 as of , and to 53 as of 02/18/2018. Remains at 53 on 02/25/2018. Improved to 58 as of 03/04/2018. Moderate assistance for bed mobility, transfers, and sit to stand. Ambulated 60 ft with moderate assistance and 2nd person following with wheelchair. Upper body dressing required minimal to moderate assistance, lower body dressing required mom moderate assistance with cues but maximal assistance for his left shoe and AFO. Shower transfer still accomplished with shower wheelchair. Toileting requires maximal assist. Left upper extremity movement is improving but he is apraxic. * As of 03/02/2018, ambulation improving to 1 person assist. * Continue PT and OT to optimize mobility and activities of daily living to the standby assist or contact guard assist level. Dysarthria and history of dementia. * Working memory is very impaired. Also with decreased attention, organization , initiation and problem-solving. * SLUMS improved from 08/07 to , consistent with mild neuro cognitive disorder. * Restart donepezil 5 mg at bedtime on 03/03/2018. * Continue Speech and Language Pathology. Secondary prevention of cerebrovascular accident/neuro recovery. * Continue aspirin, clopidogrel, blood pressure and lipid control. * Initiate fluoxetine for neuro recovery at 10 mg daily beginning 02/05/2018. Titrated to 20 mg p.o. daily starting 02/10/2018. Hypertension. Has had low blood pressures on lisinopril 20 mg q.day plus amlodipine 5 mg q.day but high blood pressure when amlodipine was at 2.5 mg q.day. * Discontinue amlodipine starting 03/02/2018. * Increased lisinopril to 30 mg daily starting 03/03/2018. * Blood pressure is controlled. Diabetes mellitus type 2. * Increased metformin from 500 mg p.o. b.i.d to 850 mg BID starting 02/05/2018. Titrated further to 1000 mg twice daily starting 02/10/2018. * Increase sitagliptin from 50 mg q.day to 100 mg q.day starting 02/21/2018. * Continue insulin glargine 9 units at HS. Continue insulin lispro sliding scale. Goal is to titrate oral medications for no need of daytime insulin. * Per hospital discharge information, his hemoglobin A1c was 8.5%.Given his age and comorbidities, a reasonable goal would be 8%. Bowel and bladder incontinence. * Continue condom catheter at night. * Scheduled toileting. Trial of psyllium fiber supplement q.day as stool bulking agent starting 02/23/2018. Fecal incontinence has resolved. * No urinary retention. Discontinued donepezil starting 02/19/2018 without improvement in urinary frequency. * Continues with frequent urination as often as q.1 hour through the day. Urinary frequency, premorbid. * Would not initiate bladder anticholinergic due to cognitive effects. * Consider trial of mirabegron, but it is not available through the hospital formulary. Weight loss in recent months. * Related to influenza, shingles and secondary Staphylococcus infection. * Consultation with dietitian. Fatigue. * Laboratory evaluation 02/20/2018 with normal renal and hepatic function and normal TSH. Anemia. New since admission to inpatient rehabilitation. * Not iron deficient, no macrocytosis. 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 Recheck p.r.n.. * Advise follow-up with Hematology after discharge. Dyslipidemia. Continue atorvastatin. History of cardiac dysrhythmia, unclear what the rhythm abnormality was. He is on sotalol, which also contributes to blood pressure control. Risk for QT prolongation with concurrent donepezil and sotalol. Reviewed EKG from [facility]. No QT prolongation. Possible peripheral vascular disease with cyanotic and cold feet. Secondary prevention for cerebrovascular accident and coronary artery disease will also serve to prevent worsening of circulation to his lower extremities. Cough, due to seasonal allergies. Has been taking cetirizine for 2 weeks. Trial of discontinuation starting 03/04/2018. Restart if he has recurrence of symptoms. Chronic leukocytosis. He had no signs or symptoms of infection in the hospital. The differential was primary lymphocytes, and the hospital physicians queried whether he has an underlying leukemia, and per hospital records, the reported that he had a long history of leukocytosis, had seen oncologist in [place], and no further evaluation or treatment was advised at that time. Spinal stenosis. He has been placed on spinal precautions. It is unclear if these are truly necessary, but it is worthwhile to prevent any complications from his L4-L5 grade 1 degenerative spondylolisthesis and severe acquired central canal stenosis. * Back pain improved with initiation of low-dose gabapentin. Prophylaxis. He is at elevated risk for DVT given his age and hemiparesis. Will initiate enoxaparin 40 mg subcutaneous daily and will provide sequential compression devices to his legs at night. DISPOSITION: Continues to need 24 hr care and ambulation is not functional. Discharge to SNF tomorrow, 03/06/2018. FOLLOWUP: He had followup advised in 2 weeks with the neurologist in [place], Dr. Mcclure, though it seems likely that he will seek followup with a neurologist in [place] where his son lives. PRIMARY CARE PROVIDER: Mariela Matthews MD, in [place]. 03/05/18 14:32 Subjective: No complaints. Thinks he has had a reduced appetite for few days but it is improving. Not in pain. No cough or dyspnea. No fevers or chills. Sleeping well. Objective: Vital Signs Temp Pulse Resp BP Pulse Ox 36.4 C 64 16 105/60 94 03/05/18 08:00 03/05/18 08:26 03/05/18 08:00 03/05/18 08:26 03/05/18 08:00 Laboratory Results 02/20/18 06:00 02/20/18 06:00 03/04/18 03/05/18 03/06/18 05:59 05:59 05:59 Intake Total 836 1130 840 Output Total 1500 920 450 Balance -664 210 390 Physical Exam - Physical Exam General Appearance: WD/WN, alert, no apparent distress Respiratory: normal breath sounds, No crackles, No rhonchi, No wheezing Cardiac/Chest: regular rate, rhythm, systolic murmur, No edema Skin: normal color, warm/dry, cyanosis Neuro/Psych: alert, normal mood/affect, oriented x 3, motor weakness (LUE & LLE) ICD10 Worksheet Patient Problems: Problems Problem Status Onset Cerebrovascular accident (CVA) involving left cerebral hemisphere Acute - ICD10 Problem Qualifiers (1) Cerebrovascular accident (CVA) involving left cerebral hemisphere
--- NOTE | 2018-03-05 18:11 | GDS ---
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 OTHER DISCHARGE DIAGNOSES: 1. Hypertension. 2. Diabetes mellitus type 2. 3. Urinary frequency. COMPLICATIONS: None. CONSULTATIONS: Acupuncture service. PROCEDURES: None. HISTORY AND HOSPITAL COURSE: This patient was admitted from [facility] where he had presented with left-sided weakness and slurred speech on 01/30/2018. MRI showed an acute right posterior internal capsule CVA. There were no embolic sources seen on echocardiogram, though he had mild to moderate concentric LVH and grade 1 diastolic dysfunction. Additionally, there was mild aortic stenosis with a mean aortic gradient of 15 mmHg. There were no dysrhythmias on tele monitoring. He had already been taking lisinopril , aspirin, and atorvastatin. Clopidogrel was added. He was otherwise medically stable and appropriate for inpatient rehabilitation. He had gradual progress in rehabilitation. His initial functional independence measure was 38 on 02/06/2018, indicating need for assistance at the usp level with all aspects of mobility and activities of daily living. He eventually improved to a functional independence measure of 58 on 03/04/2018. This is still consistent with usp level of care, but he had considerable improvement. He required moderate assistance for bed mobility, transfers, and for sit to stand. He was able to ambulate 60 feet with moderate assistance with a second person following with a wheelchair. He could dress his upper body with minimal to moderate assistance. He required moderate assistance with cues for lower body dressing but maximal assistance for his left shoe and ankle-foot orthosis. He had poor midline awareness and tended to push to the left. He was not safe for shower transfer, and shower transfer was accomplished with a shower wheelchair. He required maximal assistance for toileting. 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 Speech and Language Pathology evaluated him regarding dysarthria. He also had a history of dementia. He was found to have a very impaired working memory and decreased attention, organization, initiation, and problem solving. The [facility] Mental Status Exam was administered, and initially, he scored 11/30 which is in the demented range. Subsequently, he improved to 20/30 which is consistent with mild neurocognitive disorder. He had been treated with donepezil prior to his stroke. It was discontinued during his stay due to urinary frequency and incontinence. However, there was no change in his urination issues, so it was restarted several days before his discharge, at 5 mg at bedtime. He was continued on aspirin, clopidogrel, as well as blood pressure and lipid control as secondary prevention of CVA. He was treated with fluoxetine for neurologic recovery as well and showed no complications of these medications. Regarding his blood pressure, he was running somewhat high on lisinopril at 20 mg per day. Amlodipine was added at 2.5 mg per day. He continued to have elevated blood pressures, so amlodipine was titrated to 5 mg daily. On this dose, he had low blood pressures. Ultimately, the amlodipine was discontinued, and he was treated with lisinopril at 30 mg per day with adequate blood pressure control. Regarding diabetes mellitus, his metformin was increased from 500 mg twice daily to 1000 mg twice daily over several days. Additionally, he was begun on sitagliptin which was titrated from 50 mg per day to 100 mg per day. On this regimen, as well as insulin glargine 9 units at bedtime, he did not need a sliding scale of insulin. At [facility], hemoglobin A1c was measured at 8.5%. Given age and comorbidities, a reasonable goal for him would be 8%, and it should be checked after approximately 3 months or some time in April for recheck. He had bowel and bladder incontinence, as well as urinary frequency. These did not improve with discontinuation of donepezil, and so donepezil was restarted. He used a condom catheter at night which allowed him to sleep better. Bowel incontinence improved, especially after addition of psyllium fiber supplement, and ultimately, fecal incontinence resolved. There was no urinary retention. There was consideration of initiation of a bladder anticholinergic, but due to concerns regarding cognition, this was not tried. It would be reasonable to try mirabegron for bladder hyperactivity. This was not on hospital formulary, so it was not tried. He had anemia. He did not have iron deficiency and he was not microcytic. This was considered to be due to anemia of chronic disease versus being related to chronic leukocytosis. Chronic leukocytosis preceded his initial hospitalization, and he should follow up with Hematology eventually after discharge to determine whether or not he has a bone marrow syndrome. There was a history of cardiac dysrhythmia for which he had been treated with sotalol and the sotalol was continued. EKG from [facility] was reviewed out of concern for QT prolongation with concurrent donepezil and sotalol, and there was no QT prolongation on that the EKG. He had a history of spinal stenosis. He had back pain which developed during his stay, and this responded to low-dose gabapentin. 2 days before his discharge nursing noted a blister on his left buttock. The blister deroofed and revealed a stage II ulcer approximately 2 cm and diameter. He was treated with Allevyn dressing. It is important for him to regularly on weight the left buttock and to avoid shear. He was maintained on DVT prophylaxis, but as of the day of discharge, he is 5 weeks out from his cerebrovascular accident and has somewhat improved mobility. He likely does not need DVT prophylaxis anymore, and he is not being discharged on enoxaparin. DISCHARGE CONDITION: Good. DIET: Regular, regular texture with thin liquids, no concentrated carbohydrates , consistent carbohydrates, 2200 kilocalories per day. ACTIVITY: Ad michelle but he needs assistance for all mobility-related activities of daily living, as well as dressing, toileting, and showering. MEDICATIONS ON DISCHARGE: 1. Acetaminophen 650 mg p.o. q.4 hours p.r.n. 2. Aspirin 81 mg p.o. daily. 3. Atorvastatin 40 mg p.o. daily. 4. Clopidogrel 75 mg p.o. daily. 5. Docusate 100 mg p.o. every other day. 6. Donepezil 5 mg p.o. at bedtime. 7. Fluoxetine 20 mg p.o. daily. 8. Fluticasone 2 sprays each naris daily. 9. Gabapentin 100 mg p.o. three times daily. 10. Insulin glargine 9 units subcutaneous at bedtime. 11. Lisinopril 30 mg p.o. daily. 12. Metformin 1000 mg p.o. twice daily. 13. Nystatin powder to perineum three times daily. 14. Polyethylene glycol 17 g p.o. daily p.r.n. 15. Metamucil daily. 16. Sitagliptin 100 mg p.o. daily. 17. Sotalol 80 mg p.o. twice daily. 18. Tamsulosin 0.4 mg p.o. daily. ISSUES TO BE ADDRESSED AT FOLLOWUP: 1. Mobility and activities of daily living. He should [facility], and he can follow up with his new attending who will be assigned there. 2. Cognitive issues. Continue ASSESSMENT COUNSELOR at his [facility] and follow up with his new attending. 3. Chronic conditions of diabetes, hypertension, dyslipidemia, and secondary stroke prophylaxis with aspirin and clopidogrel. These issues have been stable. He can follow up again with his attending physician [facility] the [facility]. 4. Chronic leukocytosis. It would be in his best interest to have an evaluation by a biology manager who could also address his anemia. Greater than 30 min were spent on this discharge including medication reconciliation, coordination of care, and counseling patient and family. Copy requested to: [facility] /[id number]
[2018-03-05] MEDS: INSULIN GLARGINE 100 UNITS/ML UNIT SC SCH (20:55)
[2018-03-05] MEDS: DONEPEZIL HCL 5 MG TAB PO SCH (20:55)
[2018-03-06] MEDS: ENOXAPARIN 40 MG/0.4 ML SYR SC SCH (07:45)
[2018-03-06] MEDS: PSYLLIUM METAMUCIL 1 PKT PO SCH (08:46)
[2018-03-06] MEDS: metFORMIN HCL 500 MG TAB PO SCH (08:47)
[2018-03-06] MEDS: INSULIN LISPRO 100 UNIT/ML SC SCH (08:47)
[2018-03-06] MEDS: ATORVASTATIN CALCIUM 40 MG TAB PO SCH (08:48)
[2018-03-06] MEDS: ASPIRIN EC 81 MG TAB PO SCH (08:48)
[2018-03-06] MEDS: DOCUSATE SODIUM 100 MG CAP PO SCH (08:49)
[2018-03-06] MEDS: CLOPIDOGREL BISULFATE 75 MG TAB PO SCH (08:49)
[2018-03-06] MEDS: FLUoxetine 20 MG CAP PO SCH (08:50)
[2018-03-06] MEDS: TAMSULOSIN HCL 0.4 MG CAP PO SCH (08:51)
[2018-03-06] MEDS: GABAPENTIN 100 MG CAP PO SCH (08:51)
[2018-03-06 09:05] VITALS: BP 118/50
[2018-03-06] MEDS: LISINOPRIL 20 MG TAB PO SCH (09:34)
[2018-03-06] MEDS: FLUTICASONE NASAL 120 SPRAYS/16 GM MDI EACHNARE SCH (09:34)
[2018-03-06] MEDS: SOTALOL HCL 80 MG TAB PO SCH (09:34)
--- NOTE | 2018-03-06 09:46 | PDOREHIP ---
Admission [facility] - Admission - 3 Day Assessment Period Admission Date/Day 1: 02/04/18 Day 2: 02/05/18 Day 3: 02/06/18 Discharge [facility] - Discharge - 3 Day Assessment Period 2 Days Prior to Anticipated Discharge Date: 03/04/18 1 Day Prior to Anticipated Discharge Date: 03/05/18 Anticipated Discharge Date: 03/06/18 - Discharge Skin Conditions Unhealed Pressure Ulcer (1 or more/Stage 1 or >)-Discharge: 1. Yes # Stage 2 Pressure Ulcers-Discharge: 1 (Left buttock) # of These Stage 2 Pressure Ulcers Present on Admission: 0
[2018-03-06] MEDS: NYSTATIN POWDER 15 GM BTL TP SCH (10:58)
== END 2018-03-06 11:33 | DRG 57 ==
LOC: BREH 15:25
PROVIDERS: ADMIT Internal Medicine; ATTEND Internal Medicine
DX: I69.354 Hemiplegia and hemiparesis following cerebral infarction affecting left non-dominant side (principal); I69.322 Dysarthria following cerebral infarction; I25.10 Atherosclerotic heart disease of native coronary artery without angina pectoris; I10 Essential (primary) hypertension; E78.5 Hyperlipidemia, unspecified; F03.90 Unspecified dementia, unspecified severity, without behavioral disturbance, psychotic disturbance, mood disturbance, and anxiety; I25.2 Old myocardial infarction; M48.061 Spinal stenosis, lumbar region without neurogenic claudication; R05 Cough; Z95.5 Presence of coronary angioplasty implant and graft; Z79.82 Long term (current) use of aspirin; Z79.4 Long term (current) use of insulin; E11.51 Type 2 diabetes mellitus with diabetic peripheral angiopathy without gangrene; N40.1 Benign prostatic hyperplasia with lower urinary tract symptoms; R63.4 Abnormal weight loss; D63.8 Anemia in other chronic diseases classified elsewhere; L89.322 Pressure ulcer of left buttock, stage 2; R32 Unspecified urinary incontinence; R15.9 Full incontinence of feces; R35.0 Frequency of micturition
CPT/HCPCS: 92507-GN; 92508-GN; 92523-GN; 92526-GN; 92610-GN; 97110-GO; 97112-GO; 97112-GP; 97116-GP; 97140-GO; 97162-GP; 97167-GO; 97530-GO; 97530-GP; 97535-GO; 97542-GP; 99366-GN; 99366-GO; J1650; J1815

== ENCOUNTER 2018-06-18 10:27 | Inpatient (IN) | payer OTHER, MEDICARE ==
[2018-06-18 11:23] LABS: PLATELET COUNT 251 10^3/uL (150-400)
[2018-06-18 11:34] LABS: INR 1.05 (0.83-1.16); PROTIME(PATIENT) 13.9 SEC (12.0-15.0)
--- NOTE | 2018-06-18 12:11 | EDPHY ---
H & P Stated Complaint: Hematuria, Tx c IV [id number], oral ABX currently Time Seen by Provider: 06/18/18 10:40 HPI/ROS: CHIEF COMPLAINT: Altered mental status HISTORY OF PRESENT ILLNESS: The patient is brought to the emergency department today for altered mental status. He has a fairly complicated past medical history which starts with a stroke in the summer of this year. The patient had been at a rehab unit here [facility] ultimately was transition to a long-term facility. He apparently had a rapid decline while at that facility which led him to be hospitalized and Mandae[facility]. He reportedly developed Klebsiella infection. Family is uncertain whether that was blood or a urinary in nature. He was treated with IV antibiotics for 21 days. He finished that approximately 10 days ago. Within 2 days of stopping the IV antibiotics he developed recurrent cloudy urine and reportedly was started on oral antibiotic which she has been on for the past 10 days. The patient did have a catheter change on Friday. He is now staying at a long-term facility in [place]. Yesterday he developed recurrent hematuria, cloudy urine mental status changes. The patient was following up today with Urology. He was noted to have a balanitis felt to be secondary to Renae. In the setting of his altered mental status he was sent to the ED for further evaluation. The patient is also had a slightly progressive cough. The patient does have chronic left-sided weakness from a prior stroke. REVIEW OF SYSTEMS: A comprehensive 10 point review of systems is otherwise negative aside from elements mentioned in the history of present illness. Source: Patient Exam Limitations: No limitations - Medical/Surgical History Hx Asthma: No Hx Chronic Respiratory Disease: No Hx Diabetes: Yes Hx Cardiac Disease: Yes Hx Renal Disease: No Hx Cirrhosis: No Hx Alcoholism: No Hx HIV/AIDS: No Hx Splenectomy or Spleen Trauma: No Other PMH: 3 stents 1999, BPH, urinary retention x3, HIGH CHOL, CATARACT SURG, DIABETES - Social History Smoking Status: Never smoked - Physical Exam Exam: General Appearance: Alert, no distress Eyes: Pupils equal and round no pallor or injection ENT, Mouth: Mucous membranes moist Respiratory: Rhonchorous breath sounds bilateral lung bases Cardiovascular: Regular rate and rhythm Gastrointestinal: Abdomen is soft and nontender, no masses, bowel sounds normal Genitourinary: Candidal balanitis is noted, indwelling Parks catheter present Neurological: Weakness noted on the left side consistent with prior stroke Skin: Warm and dry, no rashes Musculoskeletal: Neck is supple nontender Extremities: symmetrical, full range of motion Constitutional: Initial Vital Signs Temperature (C) 37.0 C 06/18/18 10:33 Heart Rate 68 06/18/18 10:33 Respiratory Rate 16 06/18/18 10:33 Blood Pressure 117/66 06/18/18 10:33 O2 Sat (%) 95 06/18/18 10:33 O2 Delivery Mode Room Air Allergies/Adverse Reactions: pseudoephedrine HCl [From Sudafed] Allergy (Unknown, Verified 06/18/18 10:33) amoxicillin [From Augmentin] Allergy (Verified 06/18/18 10:33) clavulanic acid [From Augmentin] Allergy (Verified 06/18/18 10:33) dextromethorphan Allergy (Verified 06/18/18 10:33) guaifenesin [Guaifenesin] Allergy (Verified 06/18/18 10:33) pseudoephedrine Allergy (Verified 06/18/18 10:33) Sudafed Allergy (Unknown, Uncoded 09/20/17 18:16) Home Medications: Medication Instructions Recorded Acetaminophen [Tylenol 325mg (*)] 650 mg PO Q4 PRN 02/04/18 Aspirin EC [Aspirin EC 81 mg (*)] 81 mg PO DAILY 02/04/18 Atorvastatin Calcium [Lipitor 40 40 mg PO DAILY 02/04/18 mg (*)] Bisacodyl [Magic Bullet 10 mg] 10 mg [place] DAILY PRN 02/04/18 Clopidogrel Bisulfate [Clopidogrel] 75 mg PO DAILY 02/04/18 Donepezil HCl [Aricept 5 MG (*)] 5 mg PO HS 02/04/18 Polyethylene Glycol 3350 [Miralax 17 gm PO DAILY PRN 02/04/18 17 gm (*)] Sotalol HCl [SOTALOL] 80 mg PO BID 02/04/18 Tamsulosin HCl [Flomax 0.4 MG (*)] 0.4 mg PO DAILY 02/04/18 Docusate Sodium [Colace 100 MG (*)] 100 mg PO EVERY OTHER DAY cap 03/05/18 FLUoxetine [Prozac 20 MG (*)] 20 mg PO DAILY cap 03/05/18 Fluticasone Nasal [Flonase Nasal 2 sprays EACHNARE DAILY mdi 03/05/18 Mize] Gabapentin [Neurontin 100 MG (*)] 100 mg PO TID cap 03/05/18 Lisinopril [Zestril 20 mg (*)] 30 mg PO DAILY tab 03/05/18 Nystatin Powder [Mycostatin Powder] 1 jennifer TP TID powder 03/05/18 Psyllium Seed [Metamucil (*)] 1 each PO DAILY pkt 03/05/18 metFORMIN HCL [Glucophage 500 mg 1,000 mg PO BIDMEAL tab 03/05/18 (*)] sitaGLIPtin PHOSPHATE [Januvia 100 100 mg PO DAILY tab 03/05/18 MG (*)] Insulin Glargine [Lantus Syringe] 9 units SC HS unit 03/06/18 Insulin Lispro [HumaLOG LISPRO] 0 unit SC TIDMEAL #1 unit 03/06/18 Medical Decision Making - Diagnostics Imaging Results: Imaging Impressions Chest X-Ray 06/18/18 11:57 Impression: 1. No acute process. 2. Mild chronic airways disease similar to 6 years prior. ED Course/Re-evaluation: The patient presents to the ED with complaints of a progressive cough, increasing weakness and reported cloudy urine with hematuria. The patient has no evidence of septic physiology. His vital signs are stable. His neurologic examination does demonstrate a deconditioned man with some component of encephalopathy and chronic left-sided weakness. A urine culture has been obtained. I am attempting to obtain old records. In the setting of the patient's acute mental status changes I do feel he should be admitted to the hospital for further evaluation and management. Consultation made with Dr. Tavarez from the hospitalist service. I did review the patient's records in [facility]. I also reviewed his m[facility] and see no obvious oral antibiotics prescribed for the patient. He had been on meropenem for 14 days which should have finished around the 03 of June. Differential Diagnosis: Differential diagnosis considered includes sepsis, pneumonia, dehydration, metabolic abnormality, complicated urinary tract infection - Data Points Laboratory Results: Laboratory Results 06/18/18 11:14 06/18/18 11:14 06/18/18 06/18/18 06/18/18 11:14 11:14 11:14 WBC 12.47 10^3/uL H 10^3/uL (3.80-9.50) RBC 4.17 10^6/uL L 10^6/uL (4.40-6.38) Hgb 11.7 g/dL L g/dL (13.7-17.5) Hct 34.1 % L % (40.0-51.0) MCV 81.8 fL fL (81.5-99.8) MCH 28.1 pg pg (27.9-34.1) MCHC 34.3 g/dL g/dL (32.4-36.7) RDW 14.2 % % (11.5-15.2) Plt Count 251 10^3/uL 10^3/uL (150-400) MPV 8.5 fL L fL (8.7-11.7) Neut % (Auto) Not Reported Lymph % (Auto) Not Reported Cross % (Auto) Not Reported Eos % (Auto) Not Reported Baso % (Auto) Not Reported Nucleat RBC Rel Count Not Reported Absolute Neuts (auto) Not Reported Absolute Lymphs (auto) Not Reported Absolute Monos (auto) Not Reported Absolute Eos (auto) Not Reported Absolute Basos (auto) Not Reported Absolute Nucleated RBC Not Reported Immature Gran % Not Reported Seg Neutrophils % 59.6 % % Band Neutrophils % 9.1 % % Lymphocytes % 14.1 % % Monocytes % 8.1 % % Eosinophils % 0.0 % % Basophils % 0.0 % % Metamyelocytes % 1.0 % % Myelocytes % 1.0 % % Promyelocytes % 0.0 % % Blast Cells % 0.0 % % Immature Gran # Not Reported Absolute Seg Neuts 7.43 10^/uL H 10^/uL (1.70-6.50) Absolute Band Neuts 1.13 10^3/uL H 10^3/uL (0.00-0.70) Absolute Lymphocytes 1.76 10^3/uL 10^3/uL (1.00-3.00) Absolute Monocytes 1.01 10^3/uL H 10^3/uL (0.30-0.80) Absolute Eosinophils 0.00 10^3/uL L 10^3/uL (0.03-0.40) Absolute Basophils 0.00 10^3/uL L 10^3/uL (0.02-0.10) Absolute Metamyelocyte 0.12 10^3/mL H 10^3/mL (0.00-0.00) Absolute Myelocytes 0.12 10^3/mL H 10^3/mL (0.00-0.00) Absolute Promyelocytes 0.00 10^3/uL 10^3/uL (0.00-0.00) Absolute Plasma Cells 0.00 10^3/uL 10^3/uL (0.00-0.00) Nucleated RBCs 0 /100 WBC /100 WBC (0-0) Atypical Lymphocytes 1+ H Absolute Blast Cells 0.00 10^3/uL 10^3/uL (0.00-0.00) Plasma Cells % 0.0 % % Platelet Estimate ADEQUATE (ADEQ) Echinocytes 1+ H PT 13.9 SEC SEC (12.0-15.0) INR 1.05 (0.83-1.16) APTT 29.2 SEC SEC (23.0-38.0) Sodium 129 mEq/L L mEq/L (135-145) Potassium 4.9 mEq/L mEq/L (3.3-5.0) Chloride 92 mEq/L L mEq/L (97-110) Carbon Dioxide 26 mEq/l mEq/l (22-31) Anion Gap 11 mEq/L mEq/L (6-14) BUN 18 mg/dL mg/dL (7-23) Creatinine 0.7 mg/dL mg/dL (0.7-1.3) Estimated GFR > 60 Glucose 237 mg/dL H mg/dL (70-100) Calcium 9.2 mg/dL mg/dL (8.5-10.4) Urine Color Urine Appearance Urine pH Ur Specific [place] Urine Protein Urine Ketones Urine Blood Urine Nitrate Urine Bilirubin Urine Urobilinogen Ur Leukocyte Esterase Urine RBC Urine WBC Ur Epithelial Cells Urine Bacteria Urine Glucose 06/18/18 11:13 WBC RBC Hgb Hct MCV MCH MCHC RDW Plt Count MPV Neut % (Auto) Lymph % (Auto) Cross % (Auto) Eos % (Auto) Baso % (Auto) Nucleat RBC Rel Count Absolute Neuts (auto) Absolute Lymphs (auto) Absolute Monos (auto) Absolute Eos (auto) Absolute Basos (auto) Absolute Nucleated RBC Immature Gran % Seg Neutrophils % Band Neutrophils % Lymphocytes % Monocytes % Eosinophils % Basophils % Metamyelocytes % Myelocytes % Promyelocytes % Blast Cells % Immature Gran # Absolute Seg Neuts Absolute Band Neuts Absolute Lymphocytes Absolute Monocytes Absolute Eosinophils Absolute Basophils Absolute Metamyelocyte Absolute Myelocytes Absolute Promyelocytes Absolute Plasma Cells Nucleated RBCs Atypical Lymphocytes Absolute Blast Cells Plasma Cells % Platelet Estimate Echinocytes PT INR APTT Sodium Potassium Chloride Carbon Dioxide Anion Gap BUN Creatinine Estimated GFR Glucose Calcium Urine Color RED Urine Appearance CLOUDY Urine pH 5.0 (5.0-7.5) Ur Specific [place] 1.025 (1.002-1.030) Urine Protein 3+ H (NEGATIVE) Urine Ketones TNP Urine Blood 3+ H (NEGATIVE) Urine Nitrate POSITIVE H (NEGATIVE) Urine Bilirubin NEGATIVE (NEGATIVE) Urine Urobilinogen 1.0 EU EU (0.2-1.0) Ur Leukocyte Esterase 2+ H (NEGATIVE) Urine RBC >182 /hpf H /hpf (0-3) Urine WBC 10-15 /hpf H /hpf (0-3) Ur Epithelial Cells NONE SEEN /lpf /lpf (NONE-1+) Urine Bacteria 2+ /hpf H /hpf (NONE SEEN) Urine Glucose TNP Departure - Departure Disposition: [facility] Acute Clinical Impression: History of ischemic right ICA stroke, Altered mental status, Hyponatremia Condition: Fair
[2018-06-18] MEDS ORDERED: HYOSCYAMINE SULFATE 0.125 MG TAB SL PRN (14:12)
[2018-06-18] MEDS ORDERED: NS 1,000 ML IV SCH (14:15)
[2018-06-18] MEDS ORDERED: D50W 25 GM/50 ML SYR IVP PRN (14:17)
[2018-06-18] MEDS ORDERED: ONDANSETRON DISINTEGRATING 4 MG TAB PO PRN (14:26)
[2018-06-18] MEDS ORDERED: ONDANSETRON 4 MG/2 ML VIAL IVP PRN (14:26)
--- NOTE | 2018-06-18 14:39 | PDGENHP ---
History and Physical - Chief Complaint ams - History of Present Illness This is a 83 yo male who presented to the ER from his Urologists office for AMS and weakness. He has a complicated PMHx. He had a right sided internal capsule stroke around while visiting friends in [place]. He was hospitalized there and eventually admitted to our Rehab. He was continued on an Aspirin and Plavix was started. He spent several weeks at our rehab and was sent to a SNF in [place] during which he declined and was transferred to a Rehab center "[facility]" in [place]. The pt has a long standing BPH and urinary retention and had Rousseau trauma while at the rehab which required transfer to [facility] for management. There he had a UCX on 05/17 which was c/w Klebsiela Pneumonia with multi drug resistance and was treated with Meropenem for 14 days. He was discharged with from [facility] back to [facility] and completed his abx regimen. He was transferred to a new SNF in [place] on Friday and since Friday he has begun to progressively decline and over the past 2 days he has been noted to be confused. He has not had any fever. He has developed an intermittent cough. Over the past few days he has had recurrence of the hematuria which is why he went to his Urology appt today. It is unclear if he is still on abx. The family and his son report that he is on an unknown oral antibiotic and that it was started after completion of the Meropenem. However, the med list from the snf does not support this. In the ER he is noted to be pleasantly confused. VS are reassuring. He does not have a fever. He has a chronic indwelling Rousseau. He is able to follow commands. He is awake. His Na is noted to be low PMHx: CAD, HTN, IDDM, HLD, Dementia, BPH, indwelling rousseau, spinal stenosis PSHx: TURP, bilateral cataracts, Coronary Angiography, knee surgery Soc: , originally from [facility] FmHx: non contributory History Information - Allergies/Home Medication List Allergies/Adverse Reactions: pseudoephedrine HCl [From Sudafed] Allergy (Unknown, Verified 06/18/18 10:33) amoxicillin [From Augmentin] Allergy (Verified 06/18/18 10:33) clavulanic acid [From Augmentin] Allergy (Verified 10/11/18 10:33) dextromethorphan Allergy (Verified 06/18/18 10:33) guaifenesin [Guaifenesin] Allergy (Verified 06/18/18 10:33) pseudoephedrine Allergy (Verified 06/18/18 10:33) Sudafed Allergy (Unknown, Uncoded 09/20/17 18:16) Home Medications: Acetaminophen [Tylenol 325mg (*)] 650 mg PO Q4 PRN 02/04/18 [Last Taken Unknown] Aspirin EC [Aspirin EC 81 mg (*)] 81 mg PO DAILY 02/04/18 [Last Taken Unknown] Atorvastatin Calcium [Lipitor 40 mg (*)] 40 mg PO DAILY 02/04/18 [Last Taken Unknown] Clopidogrel Bisulfate [Clopidogrel] 75 mg PO DAILY 02/04/18 [Last Taken Unknown] Sotalol HCl [SOTALOL] 80 mg PO BID 02/04/18 [Last Taken Unknown] Tamsulosin HCl [Flomax 0.4 MG (*)] 0.4 mg PO DAILY 02/04/18 [Last Taken Unknown] ARIPiprazole [Abilify 10 mg (*)] 10 mg PO DAILY 06/18/18 [Last Taken Unknown] Benzonatate [Tessalon Pearles (RX)] 100 mg PO TID 06/18/18 [Last Taken Unknown] Calcium Carbonate [Tums 500MG (*)] 500 mg PO TID 06/18/18 [Last Taken Unknown] Docusate Sodium [Colace 100 MG (*)] 100 mg PO HS 06/18/18 [Last Taken Unknown] FLUoxetine [Prozac 20 MG (*)] 40 mg PO BID 06/18/18 [Last Taken Unknown] Herbals/Supplements -Info Only 1 ea PO DAILY 06/18/18 [Last Taken Unknown] Hyoscyamine Sulfate [Levsin, Hyomax-Sl 0.125 mg (*)] 0.125 mg SL Q4HRS PRN 06/18 [Last Taken Unknown] Insulin Glargine [Lantus Syringe] 10 units SC DAILY 06/18/18 [Last Taken Unknown ] Lisinopril [Zestril 40 mg (*)] 40 mg PO DAILY 06/18/18 [Last Taken Unknown] Magnesium Hydroxide [Milk of Magnesia] 2,400 mg PO DAILY PRN 06/18/18 [Last Taken Unknown] Multivitamins [Multivitamin (*)] 1 each PO DAILY 06/18/18 [Last Taken Unknown] Pantoprazole Sodium [Protonix 40mg (*)] 40 mg PO DAILY18 06/18/18 [Last Taken Unknown] amLODIPine BESYLATE [Norvasc 10 mg (*)] 10 mg PO DAILY 06/18/18 [Last Taken Unknown] busPIRone [Buspar (*)] 7.5 mg PO BID 06/18/18 [Last Taken Unknown] I have personally reviewed and updated: social history, surgical history - Social History Smoking Status: Never smoked Review of Systems Review of Systems: ROS: 10pt was reviewed & negative except for what was stated in HPI & below Physical Exam Physical Exam: Temp Pulse Resp BP Pulse Ox 36.6 C 67 16 148/72 H 93 06/18/18 14:22 06/18/18 14:09 06/18/18 14:09 06/18/18 14:09 06/18/18 14:09 Constitutional: chronically ill appearing Eyes: PERRL Ears, Nose, Mouth, Throat: dry mucous membranes Cardiovascular: regular rate and rhythym, No edema Respiratory: no respiratory distress, no rales or rhonchi, clear to auscultation Gastrointestinal: normoactive bowel sounds, soft, non-tender abdomen Skin: warm Musculoskeletal: generalized weakness Neurologic: No AAOx3 Psychiatric: encephalopathic Lymph, Heme, Immunologic: No petechiae Lab Data & Imaging Review 06/18/18 11:14 06/18/18 11:14 WBC 12.47 10^3/uL (3.80-9.50) H 06/18/18 11:14 RBC 4.17 10^6/uL (4.40-6.38) L 06/18/18 11:14 Hgb 11.7 g/dL (13.7-17.5) L 06/18/18 11:14 Hct 34.1 % (40.0-51.0) L 06/18/18 11:14 MCV 81.8 fL (81.5-99.8) 06/18/18 11:14 MCH 28.1 pg (27.9-34.1) 06/18/18 11:14 MCHC 34.3 g/dL (32.4-36.7) 06/18/18 11:14 RDW 14.2 % (11.5-15.2) 06/18/18 11:14 Plt Count 251 10^3/uL (150-400) 06/18/18 11:14 MPV 8.5 fL (8.7-11.7) L 06/18/18 11:14 Neut % (Auto) Not Reported 06/18/18 11:14 Lymph % (Auto) Not Reported 06/18/18 11:14 [place] % (Auto) Not Reported 06/18/18 11:14 Eos % (Auto) Not Reported 06/18/18 11:14 Baso % (Auto) Not Reported 06/18/18 11:14 Nucleat RBC Rel Count Not Reported 06/18/18 11:14 Absolute Neuts (auto) Not Reported 06/18/18 11:14 Absolute Lymphs (auto) Not Reported 06/18/18 11:14 Absolute Monos (auto) Not Reported 06/18/18 11:14 Absolute Eos (auto) Not Reported 06/18/18 11:14 Absolute Basos (auto) Not Reported 06/18/18 11:14 Absolute Nucleated RBC Not Reported 06/18/18 11:14 Immature Gran % Not Reported 06/18/18 11:14 Seg Neutrophils % 59.6 % 06/18/18 11:14 Band Neutrophils % 9.1 % 06/18/18 11:14 Lymphocytes % 14.1 % 06/18/18 11:14 Monocytes % 8.1 % 06/18/18 11:14 Eosinophils % 0.0 % 06/18/18 11:14 Basophils % 0.0 % 06/18/18 11:14 Metamyelocytes % 1.0 % 06/18/18 11:14 Myelocytes % 1.0 % 06/18/18 11:14 Promyelocytes % 0.0 % 06/18/18 11:14 Blast Cells % 0.0 % 06/18/18 11:14 Immature Gran # Not Reported 06/18/18 11:14 Absolute Seg Neuts 7.43 10^/uL (1.70-6.50) H 06/18/18 11:14 Absolute Band Neuts 1.13 10^3/uL (0.00-0.70) H 06/18/18 11:14 Absolute Lymphocytes 1.76 10^3/uL (1.00-3.00) 06/18/18 11:14 Absolute Monocytes 1.01 10^3/uL (0.30-0.80) H 06/18/18 11:14 Absolute Eosinophils 0.00 10^3/uL (0.03-0.40) L 06/18/18 11:14 Absolute Basophils 0.00 10^3/uL (0.02-0.10) L 06/18/18 11:14 Absolute Metamyelocyte 0.12 10^3/mL (0.00-0.00) H 06/18/18 11:14 Absolute Myelocytes 0.12 10^3/mL (0.00-0.00) H 06/18/18 11:14 Absolute Promyelocytes 0.00 10^3/uL (0.00-0.00) 06/18/18 11:14 Absolute Plasma Cells 0.00 10^3/uL (0.00-0.00) 06/18/18 11:14 Nucleated RBCs 0 /100 WBC (0-0) 06/18/18 11:14 Atypical Lymphocytes 1+ H 06/18/18 11:14 Absolute Blast Cells 0.00 10^3/uL (0.00-0.00) 06/18/18 11:14 Plasma Cells % 0.0 % 06/18/18 11:14 Platelet Estimate ADEQUATE (ADEQ) 06/18/18 11:14 Echinocytes 1+ H 06/18/18 11:14 PT 13.9 SEC (12.0-15.0) 06/18/18 11:14 INR 1.05 (0.83-1.16) 06/18/18 11:14 APTT 29.2 SEC (23.0-38.0) 06/18/18 11:14 Sodium 129 mEq/L (135-145) L 06/18/18 11:14 Potassium 4.9 mEq/L (3.3-5.0) 06/18/18 11:14 Chloride 92 mEq/L (97-110) L 06/18/18 11:14 Carbon Dioxide 26 mEq/l (22-31) 06/18/18 11:14 Anion Gap 11 mEq/L (6-14) 06/18/18 11:14 BUN 18 mg/dL (7-23) 06/18/18 11:14 Creatinine 0.7 mg/dL (0.7-1.3) 06/18/18 11:14 Estimated GFR > 60 06/18/18 11:14 Glucose 237 mg/dL (70-100) H 06/18/18 11:14 Calcium 9.2 mg/dL (8.5-10.4) 06/18/18 11:14 Urine Color RED 06/18/18 11:13 Urine Appearance CLOUDY 06/18/18 11:13 Urine pH 5.0 (5.0-7.5) 06/18/18 11:13 Ur Specific [place] 1.025 (1.002-1.030) 06/18/18 11:13 Urine Protein 3+ (NEGATIVE) H 06/18/18 11:13 Urine Ketones TNP 06/18/18 11:13 Urine Blood 3+ (NEGATIVE) H 06/18/18 11:13 Urine Nitrate POSITIVE (NEGATIVE) H 06/18/18 11:13 Urine Bilirubin NEGATIVE (NEGATIVE) 06/18/18 11:13 Urine Urobilinogen 1.0 EU (0.2-1.0) 06/18/18 11:13 Ur Leukocyte Esterase 2+ (NEGATIVE) H 06/18/18 11:13 Urine RBC >182 /hpf (0-3) H 06/18/18 11:13 Urine WBC 10-15 /hpf (0-3) H 06/18/18 11:13 Ur Epithelial Cells NONE SEEN /lpf (NONE-1+) 06/18/18 11:13 Urine Bacteria 2+ /hpf (NONE SEEN) H 06/18/18 11:13 Urine Glucose TNP 06/18/18 11:13 Assessment & Plan Assessment: #Acute Encephalopathy, etiology is likely multifactorial #Dehydration #Subacute Hyponatremia, likely due to dehydration -will get IVF -check urine studies #Recent multidrug resistant UTI, unclear if he is still on abx. unclear if contributing to current symptoms, unclear if persistent infection -hemodynamically doing well -has indwelling Rousseau -Afebrile -was treated with Meropenem. Unclear if he is still on abx. The family is clarifying -Given confusion is his main symptom, I will see if he gets better with just IVF. ID will see him as well to determine need for restarting meropenem. A urine culture has been sent. Blood cultures will be sent as well. Low threshold for starting abx if he decompensates tonight, but off abx for now #BPH, Urinary Retention #Hematuria -this has been intermittent since starting Plavix. Sometimes related to trauma -current etiology unclear -Urology to see. 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 He developed the stroke with on Aspirin. Can likely stop Aspirin and cont Plavix once hematuria improves #HTN -restart home meds #IDDM with hyperglycemia -cont home insulin -start ISS -check A1C Plan: Admission ID to see IVF to determine clinical response will have Urology consult SCD's
--- NOTE | 2018-06-18 16:06 | PDMN ---
Medical Necessity Medical necessity: Pt meets IP criteria per MD; est los >2 mn for eval/tx of acute encephalopathy, dehydration, hyponatremia, hematuria & cough w/concerns for aspiration; requiring further workup/monitoring, ID consult, IVFs & therapies; comorbid advanced age, recent hospitalizations for stroke w/ persistent L-sided weakness & multidrug resistant UTI, BPH w/urinary retention, indwelling rousseau currently in place & recent rousseau trauma, CAD, HTN, dementia, diabetes, chronic leukocytosis; per H&P & order 06/18/18
--- NOTE | 2018-06-18 16:11 | ASMTLACE ---
KRZYSZTOF Acuity / Level of Answers: Yes Care: Did the patient have an inpatient admission? Comorbidities - select Answers: Cerebrovascular disease all that apply (CVA, TIA, aneurysms, vasc ular dementia) Coronary Artery Disease Dementia Diabetes (uncontrolled or controlled) Opioid dependence / Chronic pain Previous myocardial infarction Other Notes: HTN; HLD # of Emergency department Answers: 1-2 visits in the last 6 months Score: 17 Date Signed: 06/18/2018 04:11 PM Electronically Signed By:Celi Blancas
--- NOTE | 2018-06-18 16:19 | ASMTCMCOM ---
CM Note CM Note Notes: Pt is a 83 y/o man admitted for 83 y/o man admitted for ams and weakness. Pt had a stroke recently and went to rehab at "[facility]" afterwards. Pt was transferred to a SNF in [place] this past Friday when he started to decompensate. PT and SPL have been ordered and awaiting recommendations. Wound care and ID has been consulted. Needs are TBD at this time. CM to follow. Plan: TBD Date Signed: 06/18/2018 04:18 PM Electronically Signed By:ELIAS Harrison
[2018-06-18] MEDS: BENZONATATE 100 MG CAP PO SCH ×2 (17:35→20:45)
[2018-06-18] MEDS: CLOTRIMAZOLE 1% 15 GM CRTUBE TP SCH ×2 (17:36→20:54)
[2018-06-18] MEDS: PANTOPRAZOLE SODIUM 40 MG TAB PO SCH (18:48)
[2018-06-18] MEDS: INSULIN LISPRO 100 UNIT/ML SC SCH (18:48)
[2018-06-18] MEDS: DOCUSATE SODIUM 100 MG CAP PO SCH (20:44)
[2018-06-18] MEDS: FLUoxetine 20 MG CAP PO SCH (20:44)
[2018-06-18] MEDS: busPIRone 5 MG TAB PO SCH (20:44)
[2018-06-18] MEDS: SOTALOL HCL 80 MG TAB PO SCH (20:45)
[2018-06-19 05:09] LABS: PLATELET COUNT 255 10^3/uL (150-400)
[2018-06-19] MEDS: FLUoxetine 20 MG CAP PO SCH ×2 (09:13→21:46)
[2018-06-19] MEDS: busPIRone 5 MG TAB PO SCH ×2 (09:14→21:46)
[2018-06-19] MEDS: TAMSULOSIN HCL 0.4 MG CAP PO SCH (09:16)
[2018-06-19] MEDS: LISINOPRIL 40 MG TAB PO SCH (09:17)
[2018-06-19] MEDS: ARIPiprazole 10 MG TAB PO SCH (09:18)
[2018-06-19] MEDS: ATORVASTATIN CALCIUM 40 MG TAB PO SCH (09:18)
[2018-06-19] MEDS: SOTALOL HCL 80 MG TAB PO SCH ×2 (09:19→21:47)
[2018-06-19] MEDS: BENZONATATE 100 MG CAP PO SCH ×3 (09:19→21:46)
[2018-06-19] MEDS: FLUTICASONE NASAL 120 SPRAYS/16 GM MDI EACHNARE SCH (09:20)
[2018-06-19] MEDS: CLOTRIMAZOLE 1% 15 GM CRTUBE TP SCH ×2 (09:21→21:48)
[2018-06-19] MEDS: INSULIN GLARGINE 100 UNITS/ML UNIT SC SCH (09:22)
[2018-06-19] MEDS ORDERED: NS 1,000 ML IV SCH (10:15)
--- NOTE | 2018-06-19 10:21 | HOSPPROG ---
Hospitalist Progress Note Assessment/Plan: #Acute Encephalopathy, etiology is likely multifactorial -Appears to be improving. Able to have a conversation. Knows that he is at [facility] #Dehydration, improving -I will give one more liter today #Subacute Hyponatremia, likely due to dehydration -Etiology is likely multifactorial. 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 May benefit from fluid restriction and/or Salt but will treat dehydration first #Recent multidrug resistant UTI -He was recently changed to Bactrim for unclear reasons as culture showed resistance to this. This was discontinued at the time of transfer to his new SNF -hemodynamically doing well -has indwelling Parks -Afebrile -was treated with Meropenem previously -will cont to observe off abx as clinical improvement is noted. UCX still negative but may have colonization. appreciate ID consultation. Discussed plan with them today #BPH, Urinary Retention #Hematuria -this has been intermittent since starting Plavix. Sometimes related to trauma -current etiology unclear -Urology will not see as they prefer to have the pt f/u as an op setting. 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 He developed the stroke with on Aspirin. Can likely stop Aspirin and cont Plavix once hematuria improves #HTN -restart home meds #IDDM with hyperglycemia -cont home insulin -start ISS -A1C is 7.0, which is improved from previous Plan: additional 1 L IVF appreciate ID, cont to hold off on abx. f/u with Urology restart Plavix tomorrow SCD's Subjective: more alert. able to hold a conversation. no cp or sob. hematuria is improving Objective: Vital Signs Temp Pulse Resp BP Pulse Ox 36.8 C 66 18 144/75 H 92 06/19/18 04:17 06/19/18 09:19 06/19/18 04:17 06/19/18 09:19 06/19/18 04:17 Laboratory Results 10/12/18 04:32 06/19/18 04:32 06/18/18 06/19/18 06/20/18 05:59 05:59 05:59 Intake Total 261 Output Total 975 Balance -714 PT 13.9 SEC (12.0-15.0) 06/18/18 11:14 INR 1.05 (0.83-1.16) 06/18/18 11:14 - Physical Exam Constitutional: no apparent distress, chronically ill appearing Eyes: PERRL, EOMI Ears, Nose, Mouth, Throat: moist mucous membranes, hearing normal Cardiovascular: regular rate and rhythym Respiratory: no respiratory distress, no rales or rhonchi, clear to auscultation Gastrointestinal: normoactive bowel sounds Skin: warm Musculoskeletal: generalized weakness Neurologic: AAOx3 Psychiatric: interacting appropriately, not anxious, not encephalopathic Lymph, Heme, Immunologic: No petechiae ICD10 Worksheet Patient Problems: Problems Problem Status Onset Altered mental status Acute History of ischemic right ICA stroke Acute Hyponatremia Acute Cerebrovascular accident (CVA) involving left cerebral hemisphere Acute
[2018-06-19] MEDS ORDERED: MAGNESIUM SULF 2 GM/WATER 50 ML IV ONE (10:24)
--- NOTE | 2018-06-19 10:44 | WOCRNPDOC ---
WOCRN Advanced Assessment Note - Skin Integrity Problem, Advanced Assess Right Ischial Tuberosity Pressure Injury Dressing Type: Open to Air Exudate Amount: None Nancy Wound Tissue: Blanching Nancy Wound Swelling: None Wound Bed Color: Purple Site Measurement - Head-to-Toe Length X Width X Depth (cm): [id number] Pressure Injury Stage: Deep Tissue Injury (DTI) Pressure Injury Present on Admit: Yes Skin Integrity Problem Comment: Calazime cream cleaned from buttocks. Small purple area on right ishium that is a present on admission deep tissue injury. Surrounding skin is red and blanching. Redness likely due to fecal incontinence. Patient does have a rousseau catheter. The purple area is likely to evolve over the next week or so and may open up. Please notify wound care if the area opens up. Wound care will round again next week.
[2018-06-19] MEDS: INSULIN LISPRO 100 UNIT/ML SC SCH ×3 (11:55→17:49)
--- NOTE | 2018-06-19 14:32 | ASMTCMCOM ---
CM Note CM Note Notes: CM met with Pt's son. Per son, pt was well until he and his became ill with the flu last Barry. The flu was followed by shingles, then strep, sinusitis, 2 falls from spinal stenosis and [facility] day 3 strokes. He was initially in [facility] acute inpt rehab. This was followed by stays at other rehabs including [facility], [facility] and [facility]. He was admitted here from [facility]. Pt's son was unahppy with [facility] and [facility]. He does not like [facility] and has heard negative things about [facility]. He is willing to look at [facility], but is very tentative. He wants [facility] and is aware of the difficulty in getting his father admitted there. He was told that a referral will be placed for [facility] and was encouraged to visit [facility]. Counseling with the son over limited choices, due to his father having limited Medicare days left and waiting for Medicaid to be approved, will be an ongoing process. CM to follow. D/C Plan: TBD Date Signed: 06/19/2018 02:32 PM Electronically Signed By:Sujata Jimenez
[2018-06-19] MEDS: PANTOPRAZOLE SODIUM 40 MG TAB PO SCH (17:30)
--- NOTE | 2018-06-19 20:07 | GCON ---
DATE OF CONSULTATION: 06/19/2018 REFERRING PHYSICIAN: Shan Tavarez MD REASON FOR CONSULTATION: Possible ESBL producing Klebsiella pneumonia UTI. HISTORY OF PRESENT ILLNESS: The patient is an 83-year-old male who I am asked to see in consultation for consideration of ESBL producing Klebsiella pneumoniae UTI. The patient has a complex history ov er the last several months related to a right-sided internal capsule stroke requiring hospitalization and rehabilitation. Ultimately, he was transferred to a custodial facility in [place] but wharton d subsequent decline and was transferred to a rehab center in [place]. The patient experienced Fol ey catheter trauma while in rehabilitation, prompting transfer to [facility]. There, he was noted to have a fever and confusion which prompted urine cultures on 05/16/2018, which showed greater than 100,000 ESBL producing Klebsiella pneumoniae. This was susceptible to amikacin and carbapenems . He was treated with a course of meropenem for his infection and felt to have shown clinical improv ement. He recently had return to custodial facility in [place] earlier this week and was note d to have gross hematuria yesterday. He was seen in followup by Urology and referred to the hospital for further evaluation. He was also noted to have worsening mental status with confusion. The edward ent's son also brought a urine culture which was obtained on 06/17/2018, which showed greater than 10 0,000 Klebsiella pneumoniae which is an ESBL producing organism susceptible carbapenems. The patient was admitted yesterday for the above findings and has been treated with IV rehydration but observed without antibiotic therapy. He continues to have some confusion, but is able to interact during the course of an examination. Laboratory evaluation revealed greater than 182 red blood cells and 10-15 white blood cells on urinalysis with 2+ bacteria. Urine culture is showing a gram-negative antwan which is a lactose chief engineer drilling and recovery. Blood cultures x2 are pending. The patient has not had any demonstrable fe jasmyn at time of presentation. White blood cell count is mildly elevated without significant left shif t. Given the above findings, I am now asked to assist in his ongoing management. The patient had been transitioned to Bactrim in the custodial facility and family notes he has some rash present currently. Infectious Disease consultation is now requested to assist in his ongoi ng management. PAST MEDICAL HISTORY: Coronary artery disease, stroke as above, UTI as above, hypertension, diabetes mellitus, dementia, BPH, recently need for indwelling Parks, spinal stenosis. PAST SURGICAL HISTORY: TURP, cataract surgery. CURRENT MEDICATIONS: Norvasc 10 mg p.o. daily, Abilify 10 mg p.o. daily, Lipitor 40 mg p.o. daily, T essalon Perles 100 mg p.o. three times daily, BuSpar 7.5 mg p.o. twice daily, Lotrimin applied to pen ile rash twice daily, Prozac 40 mg p.o. twice daily, Flonase spray each nares daily, Lantus insulin 1 0 units subcu daily, regular insulin sliding scale, lisinopril 40 mg p.o. daily, Protonix 40 mg p.o. daily, Flomax 0.4 mg p.o. daily, sotalol 80 mg p.o. twice daily. ALLERGIES: Augmentin with unclear reaction, guaifenesin, pseudoephedrine, dextromethorphan. SOCIAL HISTORY: The patient is currently residing in a custodial facility. REVIEW OF SYSTEMS: NEUROLOGIC: Confusion as outlined above. The patient's family also has noted ri ght upper extremity tremor. Skin: The patient has had significant penile rash which son associates with use of prior condom catheter. Unless otherwise noted, the remainder of 10-system review is unob tainable or unremarkable. PHYSICAL EXAMINATION: VITAL SIGNS: Temperature 34.8 (oral), heart rate 64, respiratory rate 18, blo od pressure 159/79, oxygen saturation 92% on room air. GENERAL: The patient is chronically ill appe aring, in no acute distress. He appears nontoxic. HEENT: There is no scleral icterus, conjunctival injection, or conjunctival petechiae. Oropharynx shows no thrush. There are slightly dry mucous me mbranes. NECK: Supple without lymphadenopathy or thyromegaly. CHEST: Clear to auscultation bilate rally without adventitious sounds. The respiratory effort is normal. CARDIOVASCULAR: Regular rate and rhythm with a 2/6 systolic murmur heard throughout. No gallops or rubs noted. ABDOMEN: Soft, n ontender, nondistended. There is no palpable organomegaly. Bowel sounds are present. MUSCULOSKELET AL: There is a left upper extremity contracture present. : Parks catheter is in place. There is balanitis present over the penis. NEUROLOGIC: The patient answers questions when asked with all re sponses being no. Contracture as outlined above. SKIN: See exam. There are scattered erythemat ous macules over the hands and extremities bilaterally; there are faint macular rash over the lower e xtremities bilaterally. LYMPHATICS: No cervical, supraclavicular or inguinal nodes palpable. LABORATORY DATA: White blood cell count 10.7, hematocrit 29.2, platelets 255, neutrophils 57%, lymph ocytes 25%, monocytes 11%, eosinophils 3%. Serum creatinine is 0.6, hemoglobin A1c 7.0. Urinalysis as outlined in the history of present illness. Blood cultures x2 sets are pending. Urine culture sh owing greater than 100,000 gram-negative rods which are lactose chief engineer drilling and recovery. Chest x-ray shows no acute process. IMPRESSION: Positive urine culture: Most likely, this will represent previously isolated extended-s pectrum beta-lactamases producing Klebsiella pneumoniae. Difficult to assess if this is contributing to active urinary tract infection versus representing persistent colonization/bacteriuria. The edward ent has a mildly elevated white blood cell count, but does not have left shift and there are small nu mbers of eosinophils present which were atypical during the course of acute infection. He does have decreased temperature, although this was measured orally which is more difficult to interpret. At th is point in time, would favor continued observation off antibiotics while blood cultures are pending. I have discussed with the family that positive urine cultures do not always necessitate antibiotic therapy and will increase pressure for increasingly resistant organisms. Continue to follow up blood cultures as complex history does place the patient at risk for more significant infection as well. RECOMMENDATIONS: 1. Agree with observation off antibiotics. 2. Follow up blood cultures as available. 3. Contact precautions for ESBL. Thank you for this consultation. We will continue to follow the patient with you. /[id number]/MODL
[2018-06-19] MEDS: DOCUSATE SODIUM 100 MG CAP PO SCH (21:46)
[2018-06-20 05:12] LABS: PLATELET COUNT 289 10^3/uL (150-400)
[2018-06-20] MEDS: INSULIN LISPRO 100 UNIT/ML SC SCH ×3 (08:25→18:03)
[2018-06-20] MEDS: BENZONATATE 100 MG CAP PO SCH ×3 (09:14→22:29)
[2018-06-20] MEDS: ATORVASTATIN CALCIUM 40 MG TAB PO SCH (09:14)
[2018-06-20] MEDS: FLUoxetine 20 MG CAP PO SCH ×2 (09:14→22:28)
[2018-06-20] MEDS: SOTALOL HCL 80 MG TAB PO SCH ×2 (09:14→22:05)
[2018-06-20] MEDS: LISINOPRIL 40 MG TAB PO SCH (09:15)
[2018-06-20] MEDS: busPIRone 5 MG TAB PO SCH ×2 (09:15→22:29)
[2018-06-20] MEDS: TAMSULOSIN HCL 0.4 MG CAP PO SCH (09:15)
[2018-06-20] MEDS: ARIPiprazole 10 MG TAB PO SCH (09:15)
[2018-06-20] MEDS: INSULIN GLARGINE 100 UNITS/ML UNIT SC SCH (09:16)
[2018-06-20] MEDS: CLOTRIMAZOLE 1% 15 GM CRTUBE TP SCH (09:17)
[2018-06-20] MEDS: FLUTICASONE NASAL 120 SPRAYS/16 GM MDI EACHNARE SCH (09:17)
--- NOTE | 2018-06-20 10:40 | HOSPPROG ---
Hospitalist Progress Note Assessment/Plan: #Acute on chronic Encephalopathy, etiology is likely multifactorial -Appears to be improving. 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 Will start Salt supplementation today #Recent multidrug Klebsiella UTI with UCx c/w Klebsiella in a pt with indwelling Parks -Likely does not indicate acute infection -ID is following -Will cont to observe off abx -Afebrile -was treated with Meropenem previously #BPH, Urinary Retention #Hematuria -this has been intermittent since starting Plavix. Sometimes related to trauma -Urology will not see as they prefer to have the pt f/u as an op setting. His Parks cont to drain well and hematuria is improving -cont to hold Aspirin, will not plan on continuing -Restart Plavix and monitor for recurrence #Balanitis: cont antifungal cream, will f/u with Urology #Cough, none noted since admission -CXR reviewed and no e/o pneumonia -exam is reassuring -will monitor for now #concerns for aspiration -DIRECTOR MEDICAL SAFETY has evaluated. Please see their note. 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 f/u with Urology restart Plavix today Salt supplementation today cont Parks SCD's Subjective: slightly confused. Able to follow commands and hold a converstation. Objective: Vital Signs Temp Pulse Resp BP Pulse Ox 36.9 C 91 14 157/71 H 93 06/20/18 07:50 06/20/18 09:14 06/20/18 07:50 06/20/18 09:15 06/20/18 07:50 Laboratory Results 06/20/18 04:40 06/20/18 04:40 06/19/18 06/20/18 06/21/18 05:59 05:59 05:59 Intake Total 261 1636 Output Total 975 1400 150 Balance -714 236 -150 PT 13.9 SEC (12.0-15.0) 06/18/18 11:14 INR 1.05 (0.83-1.16) 06/18/18 11:14 - Physical Exam Constitutional: no apparent distress, chronically ill appearing Eyes: PERRL Ears, Nose, Mouth, Throat: moist mucous membranes Cardiovascular: regular rate and rhythym, No edema Respiratory: no respiratory distress, no rales or rhonchi Gastrointestinal: normoactive bowel sounds, soft, non-tender abdomen Skin: warm Neurologic: AAOx3 Psychiatric: interacting appropriately, not anxious, encephalopathic Lymph, Heme, Immunologic: No petechiae ICD10 Worksheet Patient Problems: Problems Problem Status Onset Altered mental status Acute History of ischemic right ICA stroke Acute Hyponatremia Acute Cerebrovascular accident (CVA) involving left cerebral hemisphere Acute
[2018-06-20] MEDS: CLOPIDOGREL BISULFATE 75 MG TAB PO SCH (11:59)
[2018-06-20] MEDS: SODIUM CHLORIDE 1,000 MG TAB PO SCH ×2 (11:59→18:05)
--- NOTE | 2018-06-20 13:46 | PCMIDPN ---
Assessment/Plan: Assessment/Plan: * Positive urine culture with indwelling Rousseau catheter (present on admission) with ESBL producing Klebsiella pneumoniae: Difficult to determine if this represents true catheter associated UTI versus chronic colonization given he has had this organism previously. Family feels he remains far from baseline mental status. Will begin ertapenem 1 g IV daily to determine if this has any impact on mental status. If improves, plan 7 days of therapy. * Cough: Likely secondary to chronic aspiration. Clinical findings and plan reviewed family and Dr. Tavarez. 06/20/18 13:44 Subjective: Family notes patient remains far from baseline mental status. Sleeping significant amounts of time. Limited interaction. Objective: Vital Signs Temp Pulse Resp BP Pulse Ox 36.8 C 61 14 133/82 H 91 L 06/20/18 12:00 06/20/18 12:00 06/20/18 12:00 06/20/18 12:00 06/20/18 12:00 Laboratory Results 06/20/18 04:40 06/20/18 04:40 06/19/18 06/20/18 06/21/18 05:59 05:59 05:59 Intake Total 261 1636 Output Total 975 1400 150 Balance -714 236 -150 No antibiotics Blood cultures x2 no growth Urine culture greater than 100,000 ESBL producing Klebsiella pneumoniae - Physical Exam General Appearance: non-toxic, other (Confused but able to state he is in [place]) EENT: No scleral icterus, No conjunctival petechiae Respiratory: No respiratory distress Cardiac/Chest: regular rate, rhythm, other (Distant heart tones) Abdomen: non-tender, No distended Male Genitalia: rousseau, other (Balanitis present) ICD10 Worksheet Patient Problems: Problems Problem Status Onset Altered mental status Acute History of ischemic right ICA stroke Acute Hyponatremia Acute Cerebrovascular accident (CVA) involving left cerebral hemisphere Acute
--- NOTE | 2018-06-20 13:47 | ASMTCMCOM ---
CM Note CM Note Notes: CM met w/ pts son Dheeraj for dispo planning. Dheeraj is interested in getting a hospice consult. Referral made to [facility]. [facility] will directly contact pt for an informational. CM spoke to [facility] and told them that pt will need a hospital bed at time of d/c. CM to follow. Plan: TBD Date Signed: 06/20/2018 01:46 PM Electronically Signed By:ELIAS Harrison
[2018-06-20] MEDS: LIDO/ZINC OX/CLOTRIMAZOLE (MAD) 116 GM CREAM TP SCH ×2 (14:31→22:27)
[2018-06-20] MEDS: ERTAPENEM 1 GM in NS 100 ML IV SCH (14:31)
--- NOTE | 2018-06-20 16:16 | ASMTCMCOM ---
CM Note CM Note Notes: Phuong from [facility] is now called [facility] came and spoke to Dheeraj. Dheeraj would like Phuong to come back to speak to pt. Dheeraj needs to speak to his family about where pt will live. Here in [place] w/ him or back in [facility] where his primary residence is. The pt and family also needs to figure out w/ they want to [facility] or continue w/ [facility]. Phuong will check in with 1N nurses tomorrow and get an update. CM updated pts nurse Myrna today. CM to follow. Plan: TBD Date Signed: 06/20/2018 04:16 PM Electronically Signed By:ELIAS Harrison
[2018-06-20] MEDS: PANTOPRAZOLE SODIUM 40 MG TAB PO SCH (18:05)
[2018-06-20] MEDS: DOCUSATE SODIUM 100 MG CAP PO SCH (22:29)
[2018-06-21] MEDS: INSULIN LISPRO 100 UNIT/ML SC SCH (07:54)
[2018-06-21] MEDS: BENZONATATE 100 MG CAP PO SCH ×3 (09:29→21:57)
[2018-06-21] MEDS: LISINOPRIL 40 MG TAB PO SCH (09:29)
[2018-06-21] MEDS: ATORVASTATIN CALCIUM 40 MG TAB PO SCH (09:29)
[2018-06-21] MEDS: SODIUM CHLORIDE 1,000 MG TAB PO SCH ×2 (09:29→18:12)
[2018-06-21] MEDS: CLOPIDOGREL BISULFATE 75 MG TAB PO SCH (09:29)
[2018-06-21] MEDS: INSULIN GLARGINE 100 UNITS/ML UNIT SC SCH (09:30)
[2018-06-21] MEDS: FLUTICASONE NASAL 120 SPRAYS/16 GM MDI EACHNARE SCH (09:30)
[2018-06-21] MEDS: ERTAPENEM 1 GM in NS 100 ML IV SCH (09:30)
[2018-06-21] MEDS: TAMSULOSIN HCL 0.4 MG CAP PO SCH (09:32)
[2018-06-21] MEDS: SOTALOL HCL 80 MG TAB PO SCH ×2 (09:32→21:57)
[2018-06-21] MEDS: LIDO/ZINC OX/CLOTRIMAZOLE (MAD) 116 GM CREAM TP SCH ×2 (09:33→22:22)
--- NOTE | 2018-06-21 09:50 | PCMIDPN ---
Assessment/Plan: Assessment: Bacteriuria with ESBL Klebsiella. Unclear if this is truly causing urinary tract infection. Patient has baseline leukocytosis that is somewhat chronic. He is day 2 Of ertapenem. He was alert and conversant this morning which the nurse relates is a big difference from last night. Plan: 1. Continue IV ertapenem. 2. Follow signs of encephalopathy confusion. 06/21/18 09:48 Subjective: Patient is resting in his hospital bed. He is eating some yogurt with assistance from his nurse. He is speaking appropriately although his speech and response is slowed. No fevers or chills. No rash. Objective: Ertapenem # 2 Vital Signs Temp Pulse Resp BP Pulse Ox 36.4 C 62 16 175/69 H 94 06/21/18 08:09 06/21/18 09:32 06/21/18 08:09 06/21/18 09:32 06/21/18 08:09 Laboratory Results 06/20/18 04:40 06/21/18 04:04 06/20/18 06/21/18 06/22/18 05:59 05:59 05:59 Intake Total 1636 300 Output Total 1400 550 Balance 236 -250 - Physical Exam General Appearance: WD/WN, alert, no apparent distress, non-toxic Respiratory: lungs clear, normal breath sounds, No respiratory distress Cardiac/Chest: regular rate, rhythm, No tachycardia Skin: normal color, warm/dry, No rash Neuro/Psych: alert, normal mood/affect, oriented x 3 ICD10 Worksheet Patient Problems: Problems Problem Status Onset Altered mental status Acute History of ischemic right ICA stroke Acute Hyponatremia Acute Cerebrovascular accident (CVA) involving left cerebral hemisphere Acute
[2018-06-21] MEDS: ARIPiprazole 10 MG TAB PO SCH (10:02)
[2018-06-21] MEDS: FLUoxetine 20 MG CAP PO SCH (10:02)
[2018-06-21] MEDS: busPIRone 5 MG TAB PO SCH (10:02)
--- NOTE | 2018-06-21 10:22 | HOSPPROG ---
Hospitalist Progress Note Assessment/Plan: DIAGNOSES: * acute encephalopathy, suspect multifactorial * Improving today * hypoglycemic spells despite not receiving his usual metformin doses * Heart to determine impact of poor oral intake on this but is eating better today * growth of ESBL Klebsiella in urine, uncertain clinical significance but treating in case this is playing a role * question of new prescription for multiple medicines at SNF * Family states that Abilify Prozac and BuSpar all started recently at nursing facility, question if any of these would be impacting his encephalopathy * mild hyponatremia improving * balanitis being treated here * acute for sacral region decubitus pressure injury without evidence of infection, present on admission * Ongoing wound care here with wound care nurse involved * recent stroke with persistent hemiplegia * On Plavix and Lipitor, * Blood pressures are not adequately controlled for this setting * uncontrolled chronic hypertension despite high doses of Norvasc and lisinopril , as well as sotalol * impaired ambulation due to above with high fall risk * high DVT risk Seen by me today on hospitalist rounds as well as multidisciplinary rounds Reviewed by me with Dr Hummel today PLANS: * As I understand there will be a palliative care meeting today; depending on the results of that conversation may need to make changes in the treatment plan to meet the patient and family's goals * Continue treatment for possible urinary tract infection though not certain that that is causing his symptoms at this time, reviewed with Dr. Hummel today by me * Continue Plavix and Lipitor at this time * Decrease Lantus dose to 70 units, continue off metformin at this time; will DC the sliding scale short acting, follow sugars closely * For now will hold the antidepressants until we can find out whether these medicines are supposed to be on his list are not * Will add further hypertensive therapy * Add Lovenox for DVT prophylaxis * Follow sodium * PT and OT * Wound care for his decubitus lesions SUBJECTIVE: Patient says he is fatigued and sleepy but otherwise feels well Denies pain nausea or fever symptoms OBJECTIVE Vitals reviewed: Remains hypertensive but otherwise normal without fever Wafer Fab Operator, my review: Exam: alert responsive and answers questions normally Remains with unilateral weakness from his stroke but no new neurologic changes skin warm dry color ok resps not labored lungs clear BSs heart regular abd soft nondistended nontender, bowel sounds present limbs warm, no edema iv site ok Laboratory data: Had hypoglycemic spell last evening in the 50s and was at 100 this morning, I notice he had a.m. Sugars in the 70s and 90s the last couple of days as well, no terribly high sugars Sodium at 9:32 p.m. Rest of chemistry unremarkable Objective: Vital Signs Temp Pulse Resp BP Pulse Ox 36.4 C 62 16 175/69 H 94 06/21/18 08:09 06/21/18 09:32 06/21/18 08:09 06/21/18 09:32 06/21/18 08:09 Laboratory Results 06/20/18 04:40 06/21/18 04:04 06/20/18 06/21/18 06/22/18 06:59 06:59 06:59 Intake Total 1636 300 Output Total 1400 550 Balance 236 -250 PT 13.9 SEC (12.0-15.0) 06/18/18 11:14 INR 1.05 (0.83-1.16) 06/18/18 11:14 - Time Spent With Patient Time Spent with Patient: greater than 35 minutes Time Spent with Patient: Greater than 35 minutes spent on this patients care, greater than 50% of time spent counseling, educating, and coordinating care regarding the above mentioned plan. ICD10 Worksheet Patient Problems: Problems Problem Status Onset Altered mental status Acute History of ischemic right ICA stroke Acute Hyponatremia Acute Cerebrovascular accident (CVA) involving left cerebral hemisphere Acute
[2018-06-21] MEDS ORDERED: INSULIN GLARGINE 100 UNITS/ML UNIT SC SCH (10:31)
[2018-06-21] MEDS: FUROSEMIDE 20 MG TAB PO SCH (11:53)
[2018-06-21] MEDS: ENOXAPARIN 40 MG/0.4 ML SYR SC SCH (11:53)
[2018-06-21] MEDS ORDERED: guaiFENesin 200 MG TAB PO PRN (17:23)
[2018-06-21] MEDS: PANTOPRAZOLE SODIUM 40 MG TAB PO SCH (18:12)
[2018-06-21] MEDS: DOCUSATE SODIUM 100 MG CAP PO SCH (22:23)
[2018-06-22] MEDS: ERTAPENEM 1 GM in NS 100 ML IV SCH (09:28)
[2018-06-22] MEDS: TAMSULOSIN HCL 0.4 MG CAP PO SCH (09:28)
[2018-06-22] MEDS: FUROSEMIDE 20 MG TAB PO SCH (09:28)
[2018-06-22] MEDS: ATORVASTATIN CALCIUM 40 MG TAB PO SCH (09:29)
[2018-06-22] MEDS: CLOPIDOGREL BISULFATE 75 MG TAB PO SCH (09:29)
[2018-06-22] MEDS: LISINOPRIL 40 MG TAB PO SCH (09:29)
[2018-06-22] MEDS: SODIUM CHLORIDE 1,000 MG TAB PO SCH ×2 (09:29→17:07)
[2018-06-22] MEDS: SOTALOL HCL 80 MG TAB PO SCH ×2 (09:29→21:31)
[2018-06-22] MEDS: BENZONATATE 100 MG CAP PO SCH ×3 (09:29→21:31)
[2018-06-22] MEDS: FLUTICASONE NASAL 120 SPRAYS/16 GM MDI EACHNARE SCH (09:30)
[2018-06-22] MEDS: LIDO/ZINC OX/CLOTRIMAZOLE (MAD) 116 GM CREAM TP SCH ×2 (09:31→21:34)
[2018-06-22] MEDS: ENOXAPARIN 40 MG/0.4 ML SYR SC SCH (09:32)
--- NOTE | 2018-06-22 10:18 | PCMIDPN ---
Assessment/Plan: Assessment: Bacteriuria with ESBL Klebsiella. It remains unclear if this is truly causing urinary tract infection. Patient has baseline leukocytosis that is somewhat chronic. He is day 3 of ertapenem. He continues to be alert and conversant this morning. maintains that he is not at his peak recovery point that he had post CVA. I reiterated that this is a short 7 day course of ertapenem and that there is no role for continued antibiotic use after this completion. Plan: 1. Continue IV ertapenem. 2. Follow signs of encephalopathy confusion. Subjective: Patient is resting in his hospital bed. He is somewhat somnolent and drips and out of sleep. When he is awake and alert he is able to converse appropriately. He denies any complaint. No fevers or chills. No abdominal pain. Seems to be tolerating ertapenem without issue. Objective: Ertapenem # 3 Vital Signs Temp Pulse Resp BP Pulse Ox 36.5 C 68 14 143/68 H 95 06/22/18 08:00 06/22/18 09:29 06/22/18 08:00 06/22/18 09:29 06/22/18 08:00 Laboratory Results 06/20/18 04:40 06/22/18 08:12 06/21/18 06/22/18 06/23/18 05:59 05:59 05:59 Intake Total 300 300 Output Total 550 600 Balance -250 -300 - Physical Exam General Appearance: WD/WN, alert, no apparent distress, non-toxic Respiratory: lungs clear, normal breath sounds, No respiratory distress Cardiac/Chest: regular rate, rhythm, No tachycardia Abdomen: non-tender, soft, No distended Skin: normal color, warm/dry, No rash Neuro/Psych: alert, normal mood/affect, oriented x 3 ICD10 Worksheet Patient Problems: Problems Problem Status Onset Altered mental status Acute History of ischemic right ICA stroke Acute Hyponatremia Acute Cerebrovascular accident (CVA) involving left cerebral hemisphere Acute
[2018-06-22] MEDS: INSULIN GLARGINE 100 UNITS/ML UNIT SC SCH (12:15)
--- NOTE | 2018-06-22 14:44 | ASMTCMCOM ---
CM Note CM Note Notes: Pt and his family will be meeting with [facility] hospice today. Dheeraj needs to speak to his family about where pt will live. Here in [place] w/ him or back in [facility] where his primary residence is. The pt and family also needs to figure out w/ they want to go back to the [facility] or continue w/ ivabx. CM to follow. DC Plan: TBD Date Signed: 06/22/2018 02:44 PM Electronically Signed By:Sujata Jimenez
[2018-06-22] MEDS ORDERED: NS 500 ML IV ONE (15:42)
[2018-06-22] MEDS: PANTOPRAZOLE SODIUM 40 MG TAB PO SCH (17:07)
[2018-06-22] MEDS: NS 1,000 ML IV SCH (17:34)
--- NOTE | 2018-06-22 18:25 | HOSPPROG ---
Hospitalist Progress Note Assessment/Plan: DIAGNOSES: * acute dehydration today with very poor oral intake last 2 days * Patient very reluctant to take thickened liquids * acute encephalopathy, suspect multifactorial * Worse today likely due to dehydration * hypoglycemic spells despite not receiving his usual metformin doses * Much better with lowered dose of Lantus insulin, still off metformin * growth of ESBL Klebsiella in urine, uncertain clinical significance but treating in case this is playing a role * Is receiving antibiotics but uncertain if these are contributing in any positive why * polypharmacy which is likely contributing to his mentation and other issues * New medicines that were started at [facility] recently include Abilify, BuSpar, Ritalin and hyoscyamine * I do not think any of these medicines are benefitting him and they certainly could be aggravating some of his acute issues * mild hyponatremia improving * balanitis being treated here * acute sacral region decubitus pressure injury without evidence of infection, present on admission * Ongoing wound care here with wound care nurse involved * 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, dysphagia * On Plavix and Lipitor, * Blood pressures are not adequately controlled for this setting * uncontrolled chronic hypertension despite high doses of Norvasc and lisinopril , as well as sotalol * Better today, question if this is due to his dehydration * impaired ambulation due to above with high fall risk * high DVT risk Seen by me today on hospitalist rounds as well as multidisciplinary rounds Reviewed by me with Dr Hummel today PLANS: * Further palliative care discussions will be ongoing during the rest of his hospital stay * Continue treatment for possible urinary tract infection though not certain that that is causing his symptoms at this time, reviewed with Dr. Hummel today by me * Continue Plavix and Lipitor at this time * Continue decreased Lantus dose at 7 units, continue off metformin at this time ; would not use any sliding scale insulin, and blood keep the goals of glucose control modest in his case * Discontinue the following medicines from the patient's current and home medicine list as I think some of them are causing side effects and none of them appear to be contributing in a positive way at this time: Abilify, BuSpar, hyoscyamine, and Ritalin * Consider further antihypertensive therapy if blood pressure goes back up * Add Lovenox for DVT prophylaxis * Follow sodium * PT and OT * Wound care for his decubitus lesions and penile balanitis SUBJECTIVE: Patient denies discomforts No appetite at all Very upset about having to take thickened liquids OBJECTIVE Vitals reviewed: Blood pressure is better today, otherwise stable without fever Exam: A bit obtunded today and falls asleep quite a bit, weaker voice, disoriented today Appears dehydrated with decreased skin turgor and dry mouth Remains with unilateral weakness from his stroke but no new focal neurologic changes skin warm dry color ok resps not labored lungs clear BSs heart regular abd soft nondistended nontender, bowel sounds present limbs warm, no edema iv site ok Laboratory data: Blood sugars much steadier and in much better range overall with lower Lantus Sodium stable 132 Objective: Vital Signs Temp Pulse Resp BP Pulse Ox 36.5 C 61 16 113/60 96 06/22/18 15:25 06/22/18 15:25 06/22/18 15:25 06/22/18 15:25 06/22/18 15:25 Laboratory Results 06/20/18 04:40 06/22/18 08:12 06/21/18 06/22/18 06/23/18 06:59 06:59 06:59 Intake Total 300 300 582 Output Total 550 600 460 Balance -250 -300 122 PT 13.9 SEC (12.0-15.0) 06/18/18 11:14 INR 1.05 (0.83-1.16) 06/18/18 11:14 - Time Spent With Patient Time Spent with Patient: greater than 35 minutes Time Spent with Patient: Greater than 35 minutes spent on this patients care, greater than 50% of time spent counseling, educating, and coordinating care regarding the above mentioned plan. ICD10 Worksheet Patient Problems: Problems Problem Status Onset Altered mental status Acute History of ischemic right ICA stroke Acute Hyponatremia Acute Cerebrovascular accident (CVA) involving left cerebral hemisphere Acute
[2018-06-22] MEDS: DOCUSATE SODIUM 100 MG CAP PO SCH (21:30)
[2018-06-23] MEDS: LISINOPRIL 40 MG TAB PO SCH (08:59)
[2018-06-23] MEDS: ENOXAPARIN 40 MG/0.4 ML SYR SC SCH (08:59)
[2018-06-23] MEDS: ATORVASTATIN CALCIUM 40 MG TAB PO SCH (08:59)
[2018-06-23] MEDS: TAMSULOSIN HCL 0.4 MG CAP PO SCH (09:00)
[2018-06-23] MEDS: SODIUM CHLORIDE 1,000 MG TAB PO SCH ×2 (09:00→16:44)
[2018-06-23] MEDS: BENZONATATE 100 MG CAP PO SCH ×3 (09:00→21:46)
[2018-06-23] MEDS: SOTALOL HCL 80 MG TAB PO SCH ×2 (09:00→21:46)
[2018-06-23] MEDS: CLOPIDOGREL BISULFATE 75 MG TAB PO SCH (09:00)
[2018-06-23] MEDS: INSULIN GLARGINE 100 UNITS/ML UNIT SC SCH ×2 (09:01→09:42)
[2018-06-23] MEDS: LIDO/ZINC OX/CLOTRIMAZOLE (MAD) 116 GM CREAM TP SCH ×2 (09:01→21:45)
[2018-06-23] MEDS: FLUTICASONE NASAL 120 SPRAYS/16 GM MDI EACHNARE SCH (09:01)
[2018-06-23] MEDS: ERTAPENEM 1 GM in NS 100 ML IV SCH (09:01)
[2018-06-23] MEDS: ACETAMINOPHEN 325 MG TAB PO PRN (09:02)
--- NOTE | 2018-06-23 10:24 | PCMIDPN ---
Assessment/Plan: # Delirium, unclear etiology. Unfortunately ertapenem toxicity can cause worsening confusion. # bacteriuria versus UTI with ESBL E coli: Little change in objective measures with initiation of ertapenem. Patient still with impaired mentation by my exam today. Rousseau present on admission # chronic elevated white count no change with treatment of UTI Recommendations 1. Ertapenem x7 days, stop date 06/27/2018; adjusted MAR 2. Call ID for additional questions 3. Continue contact precautions Subjective: Patient stating"I am in a hell hole" denies pain Objective: Vital Signs Temp Pulse Resp BP Pulse Ox 36.4 C 68 18 163/69 H 94 06/23/18 08:57 06/23/18 09:00 06/23/18 08:57 06/23/18 09:00 06/23/18 08:57 Laboratory Results 06/20/18 04:40 06/22/18 08:12 06/22/18 06/23/18 06/24/18 05:59 05:59 05:59 Intake Total 300 1464 Output Total 600 835 Balance -300 629 - Physical Exam General Appearance: other (sleepy somewhat uncooperative with orientation questions but admits to 2018) EENT: dry mucous membranes, No thrush Respiratory: wheezing (Scattered), No accessory muscle use, No crackles Cardiac/Chest: regular rate, rhythm Extremities: other (Wasting left side consistent with past julio paresis from CVA ), No pedal edema Abdomen: non-tender, soft Male Genitalia: rousseau Skin: pallor, No rash Neuro/Psych: other (Sleepy and somewhat uncooperative) - Line/s PIV Lines: No drainage, No erythema ICD10 Worksheet Patient Problems: Problems Problem Status Onset Altered mental status Acute History of ischemic right ICA stroke Acute Hyponatremia Acute Cerebrovascular accident (CVA) involving left cerebral hemisphere Acute
[2018-06-23] MEDS: PANTOPRAZOLE SODIUM 40 MG TAB PO SCH (16:44)
--- NOTE | 2018-06-23 16:46 | HOSPPROG ---
Hospitalist Progress Note Assessment/Plan: DIAGNOSES: * today with recurrence gross hematuria, with history of recent urologic injury from Parks catheter treated elsewhere * No clots and is draining well * Will need to recheck his blood counts, and if bleeding persists may need irrigation catheter * acute dehydration today with very poor oral intake last 2 days * Patient very reluctant to take thickened liquids * acute encephalopathy, suspect multifactorial * Worse today likely due to dehydration * hypoglycemic spells despite not receiving his usual metformin doses * Much better with lowered dose of Lantus insulin, still off metformin * growth of ESBL Klebsiella in urine, uncertain clinical significance but treating in case this is playing a role * Is receiving antibiotics but uncertain if these are contributing in any positive why * polypharmacy which is likely contributing to his mentation and other issues * New medicines that were started at [facility] recently include Abilify, BuSpar, Ritalin and hyoscyamine * I do not think any of these medicines are benefitting him and they certainly could be aggravating some of his acute issues * mild hyponatremia improving * balanitis being treated here * acute sacral region decubitus pressure injury without evidence of infection, present on admission * Ongoing wound care here with wound care nurse involved * 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, dysphagia * On Plavix and Lipitor, * Blood pressures are not adequately controlled for this setting * uncontrolled chronic hypertension despite high doses of Norvasc and lisinopril , as well as sotalol * Better today, question if this is due to his dehydration * impaired ambulation due to above with high fall risk * high DVT risk Seen by me today on hospitalist rounds as well as multidisciplinary rounds Reviewed by me with Dr arriaza today PLANS: * Continue IV hydration at this time * Continue efforts to encourage oral intake of thickened fluids * Hold Lovenox at this time due to gross hematuria via Parks, continue hydration follow gross hematuria watching for clots or problems emptying bladder ; repeat blood counts to see that he is not becoming significantly more anemic * Further palliative care discussions will be ongoing during the rest of his hospital stay * Continue treatment for possible urinary tract infection though not certain that that is causing his symptoms at this time, reviewed with Dr. Arriaza today by me * Continue Plavix and Lipitor at this time (could also consider holding Plavix temporarily of hematuria becomes ongoing issue) * Continue decreased Lantus dose at 7 units, continue off metformin at this time ; would not use any sliding scale insulin, and blood keep the goals of glucose control modest in his case * Discontinued the following medicines from the patient's current and home medicine list as I think some of them are causing side effects and none of them appear to be contributing in a positive way at this time: Abilify, BuSpar, hyoscyamine, and Ritalin * Will add some low-dose hydralazine for better blood pressure control with stroke history * Add Lovenox for DVT prophylaxis * Follow sodium * PT and OT * Wound care for his decubitus lesions and penile balanitis SUBJECTIVE: Patient does not appear to have pain or discomfort but he is still a fairly encephalopathic today and not really possible to get a accurate symptom assessment OBJECTIVE Vitals reviewed: Blood pressure i still intermittently high, otherwise stable without fever Exam: Slightly more alert today and eating and drinking a bit better than yesterday, however remains rather obtunded confused and speech is unintelligible Appears better hydrated after IV fluid overnight with better skin turgor Remains with chronic unilateral weakness from his old stroke but no new focal neurologic changes skin warm dry color ok resps not labored lungs clear BSs heart regular abd soft nondistended nontender, bowel sounds present limbs warm, no edema Parks catheter draining well but is having fair bit of gross hematuria today iv site ok Laboratory data: Blood sugars reasonably stable in good range at lower Lantus dose and off his usual metformin Sodium stable 132 Objective: Vital Signs Temp Pulse Resp BP Pulse Ox 36.4 C 70 18 163/69 H 94 06/23/18 08:57 06/23/18 11:28 06/23/18 08:57 06/23/18 09:00 06/23/18 08:57 Laboratory Results 06/20/18 04:40 06/22/18 08:12 06/22/18 06/23/18 06/24/18 06:59 06:59 06:59 Intake Total 300 1464 Output Total 600 835 Balance -300 629 PT 13.9 SEC (12.0-15.0) 06/18/18 11:14 INR 1.05 (0.83-1.16) 06/18/18 11:14 - Time Spent With Patient Time Spent with Patient: greater than 35 minutes Time Spent with Patient: Greater than 35 minutes spent on this patients care, greater than 50% of time spent counseling, educating, and coordinating care regarding the above mentioned plan. ICD10 Worksheet Patient Problems: Problems Problem Status Onset Altered mental status Acute History of ischemic right ICA stroke Acute Hyponatremia Acute Cerebrovascular accident (CVA) involving left cerebral hemisphere Acute
[2018-06-23 19:30] LABS: PLATELET COUNT 380 10^3/uL (150-400)
[2018-06-23] MEDS: NS 1,000 ML IV SCH (21:31)
[2018-06-23] MEDS: hydrALAZINE 10 MG TAB PO SCH (21:45)
[2018-06-23] MEDS: DOCUSATE SODIUM 100 MG CAP PO SCH (21:46)
[2018-06-24 04:57] LABS: PLATELET COUNT 392 10^3/uL (150-400)
[2018-06-24] MEDS: LISINOPRIL 40 MG TAB PO SCH (09:56)
[2018-06-24] MEDS: hydrALAZINE 10 MG TAB PO SCH ×3 (09:57→22:42)
[2018-06-24] MEDS: SODIUM CHLORIDE 1,000 MG TAB PO SCH (09:57)
[2018-06-24] MEDS: BENZONATATE 100 MG CAP PO SCH ×3 (09:57→22:43)
[2018-06-24] MEDS: CLOPIDOGREL BISULFATE 75 MG TAB PO SCH (09:57)
[2018-06-24] MEDS: ATORVASTATIN CALCIUM 40 MG TAB PO SCH (09:57)
[2018-06-24] MEDS: TAMSULOSIN HCL 0.4 MG CAP PO SCH (09:58)
[2018-06-24] MEDS: SOTALOL HCL 80 MG TAB PO SCH ×2 (09:59→22:43)
[2018-06-24] MEDS: INSULIN GLARGINE 100 UNITS/ML UNIT SC SCH (10:25)
[2018-06-24] MEDS: FLUTICASONE NASAL 120 SPRAYS/16 GM MDI EACHNARE SCH (10:27)
[2018-06-24] MEDS: ERTAPENEM 1 GM in NS 100 ML IV SCH (10:27)
[2018-06-24] MEDS: LIDO/ZINC OX/CLOTRIMAZOLE (MAD) 116 GM CREAM TP SCH ×2 (10:28→20:30)
[2018-06-24] MEDS: ACETAMINOPHEN 325 MG TAB PO PRN (10:48)
--- NOTE | 2018-06-24 12:48 | HOSPPROG ---
Hospitalist Progress Note Assessment/Plan: 83 yo male admitted with AMS due to dehydration and possibly UTI #Acute on chronic Encephalopathy, etiology is likely multifactorial -waxing and weaning. Very encephalopathic today. Similar to admission #Dehydration -I believe that he has been having issues with dehydration since before this admission. He was dehydrated on admission and his Encephalopathy improved with IVF. He has not been able to take a normal amount of PO fluids and dehydration has recurred -cont IVF at 75ml/hr. 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 Despite improvement of hydration status with IVF, Na remained low and Urine testing was c/w inappropriate release of Na indicating possible SiADH. Since fluid restriction was not an option he was started on salt replacement (bid dosing) and Na has since improved. However with BP elevated, will repeat testing and hold Salt for now. #Recent multidrug Klebsiella UTI with UCx c/w Klebsiella in a pt with indwelling Rousseau -unclear if active infection is present -ID is following -cont with Meropenem #BPH, Urinary Retention, has rousseau in place #Hematuria, resolved. Now back on Plavix. Holding Aspirin #Balanitis: cont antifungal cream, will f/u with Urology #cough, intermittent. No supplemental O2 needs. CXR previously negative. Will monitor for now. cont IVF per above #concerns for aspiration -POTTER[employer]ORATOR has evaluated. Please see their note. 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 There was discussion about hospice at the beginning of the week as the pt had communicated to his son about it. However, reportedly, the family is not all in agreement. I believe that hospice is appropriate. appreciate ID, cont Meropenem f/u with Urology SCD's discussed with team during team rounds Subjective: encephalopathic. on room air. no cp or sob. no further hematuria Objective: Vital Signs Temp Pulse Resp BP Pulse Ox 36.5 C 68 16 156/72 H 97 06/24/18 12:10 06/24/18 12:10 06/24/18 12:10 06/24/18 12:10 06/24/18 12:10 Microbiology 06/18/18 15:15 Blood Culture - Final Blood 06/18/18 15:10 Blood Culture - Final Blood Laboratory Results 06/24/18 04:37 06/24/18 04:37 06/23/18 06/24/18 06/25/18 05:59 05:59 05:59 Intake Total 1464 1206 Output Total 835 1800 Balance 629 -594 PT 13.9 SEC (12.0-15.0) 06/18/18 11:14 INR 1.05 (0.83-1.16) 06/18/18 11:14 - Physical Exam Constitutional: chronically ill appearing Eyes: PERRL Ears, Nose, Mouth, Throat: moist mucous membranes, hearing normal Cardiovascular: regular rate and rhythym, No edema Respiratory: no respiratory distress, no rales or rhonchi, reduced air movement Gastrointestinal: normoactive bowel sounds, soft, non-tender abdomen Skin: warm Musculoskeletal: generalized weakness Neurologic: No AAOx3 Psychiatric: not anxious, encephalopathic Lymph, Heme, Immunologic: No petechiae ICD10 Worksheet Patient Problems: Problems Problem Status Onset Altered mental status Acute History of ischemic right ICA stroke Acute Hyponatremia Acute Cerebrovascular accident (CVA) involving left cerebral hemisphere Acute
--- NOTE | 2018-06-24 14:05 | ASMTCMCOM ---
CM Note CM Note Notes: Patient plan of care reviewed in rounds. Palliative care meeting deemed appropriate at this time given the patient has not really responded to medical therapies after 5 days. His son Dheeraj, his daughter and were all present with myself and Zacarias Spain. We had a long discussion about Dale's life, where he has been and what may lay ahead regarding palliative care versus home with hospice. The family is adamant that he not return to [facility] in [place]. His Rosanna states she believes if he were to suffer a natural that this be allowed without CPR. The family is concerned that the rousseau catheter may be playing a role in his acute illness. It was decided to trial him without a rousseau. CM to follow for needs. Plan: TBD Date Signed: 06/24/2018 02:05 PM Electronically Signed By:Marion Suero RN
[2018-06-24] MEDS: NS 1,000 ML IV SCH (17:06)
[2018-06-24] MEDS: PANTOPRAZOLE SODIUM 40 MG TAB PO SCH (17:07)
--- NOTE | 2018-06-24 18:57 | GCON ---
DATE OF CONSULTATION: 06/24/2018 REASON FOR CONSULT: Gross hematuria, altered mental status and urinary retention. HISTORY OF PRESENT ILLNESS: This is a pleasant, 83-year-old male, who has been seen in our office fo r years of BPH and intermittent gross hematuria. He presented on 06/18/2018, with increasing confusi on, recurrent gross hematuria and altered mental status. His son reports that his mental status had been significantly declining as of that day. He was sent to the emergency room from our office and wharton s been here since. He has recently had multiple strokes and is on anticoagulation. He was treated at [facility] on 05/17 for a Klebsiella infection and was on IV antibiotics. The family report s that cognition was doing better while on antibiotics, but then after stopping them quickly became m ore confused again. PAST MEDICAL HISTORY: CAD, HTN, IDDM, HLD, dementia, BPH, indwelling Parks, spinal stenosis. PAST SURGICAL HISTORY: TURP, cataracts, coronary angiography, knee surgery. SOCIAL HISTORY: . Family is with him. Never smoker. FAMILY HISTORY: Noncontributory. ALLERGIES: Include: Sudafed, Augmentin, dextromethorphan, guaifenesin. MEDICATIONS: Please see med rec. REVIEW OF SYSTEMS: Unable to obtain this due to his cognitive state. PHYSICAL EXAM: VITAL SIGNS: Blood pressure 156/72, heart rate 68, respirations 16, O2 97% on room a ir, temperature 36.5. GENERAL: The patient is a well-developed, well-nourished male, in no acute dis tress. HEENT: Normocephalic, atraumatic. Extraocular movements intact. NECK: Supple. No lymphad enopathy. Trachea midline. RESPIRATORY: The patient is coughing with a productive cough. GI: Abdom en was soft, nondistended, nontender to palpation. : No CVA tenderness. Parks catheter in place. No gross hematuria in urine at that time. INTEGUMENT: No obvious rashes or lesions. MUSCULOSKELETAL: Sitting and not moving his extremities. NEURO: The patient was not oriented, somewhat alert. LABORATORY DATA: White blood cell count 11.57, hemoglobin 11.3, hematocrit 34.3, platelets 392. Linda fay: Sodium 138, potassium 4, carbon dioxide 27, anion gap 7, BUN 10, creatinine 0.5, glucose 141. Urinalysis was positive for blood and infection. Tox screen is negative. ASSESSMENT AND PLAN: Altered mental status, bacteria in his urine, gross hematuria, urinary retentio n. This is a complicated, likely multifactorial reason for his altered mental status and agree with recommendations to continue treatment for a possible Klebsiella urinary tract infection, although it is unclear if this is an acute or a colonized infection. Will leave Parks in place for urinary retent ion. Hematuria has been intermittent at least for the last year and a half and maybe somewhat due to BPH that has been managed historically in our office. We will continue to follow along with this patient. Thank you for allowing us to participate in his care. /[id number]/MODL
--- NOTE | 2018-06-24 20:00 | WOCRNPDOC ---
WOCRN Advanced Assessment Note - Skin Integrity Problem, Advanced Assess Right Ischial Tuberosity Pressure Injury Dressing Type: Open to Air Nancy Wound Tissue: Blanching, Erythema Wound Bed Constitution: Healed Pressure Injury Stage: Deep Tissue Injury (DTI) Skin Integrity Problem Comment: Healed DTI with blanching erythema remaining. No open areas. Wound care will sign off. Sacrum Pressure Injury Dressing Type: Open to Air Exudate Amount: None Integumentary Issue Intervention: Lotion/Cream Applied (Dimethicone to sacrum/ MAD to scrotum) Nancy Wound Tissue: Blanching, Erythema, Xerotic Site Measurement - Head-to-Toe Length X Width X Depth (cm): 6x7x0 Pressure Injury Present on Admit: Yes (per patient's daughter) Skin Integrity Problem Comment: Large area of mixed blanching/non blanching tissue with some scarring. All intact. Peeling epidermis. Per patient's daughter his urologist diagnosed this area as a pressure injury a week or two ago when it was open. Likely the pressure injuries were partial thickness as there is not significant scarring and per her report the open areas healed quickly (within a few days/a week). Wound care will sign off. Please reconsult prn worsening wounds/opening of wounds.
[2018-06-24] MEDS: DOCUSATE SODIUM 100 MG CAP PO SCH (22:43)
[2018-06-25] MEDS: ERTAPENEM 1 GM in NS 100 ML IV SCH (09:43)
[2018-06-25] MEDS ORDERED: PNEUMOC 13-VAL CONJ-DIP CRM/PF 0.5 ML SYR IM ONE (11:22)
--- NOTE | 2018-06-25 12:24 | ASMTCMCOM ---
CM Note CM Note Notes: Patient plan of care reviewed in rounds. His mentation is poorer today and he is difficult to wake. He will need rousseau reinserted. Patient's son and daughter present for rounds. DC plan of care unclear at this time but patient will likely need SNF or 24 hour care at home. Family aware of options of palliative vs hospice care. CM to follow. Plan: TBD Date Signed: 06/25/2018 12:24 PM Electronically Signed By:Marion Suero RN
--- NOTE | 2018-06-25 12:44 | HOSPPROG ---
Hospitalist Progress Note Assessment/Plan: 83 yo male admitted with AMS due to dehydration and possibly UTI #Acute on chronic Encephalopathy, etiology is likely multifactorial -waxing and weaning -Encephalopathy persists #Dehydration -I believe that he has been having issues with dehydration since before this admission. He was dehydrated on admission and his Encephalopathy improved with IVF. He has not been able to take a normal amount of PO fluids and dehydration has recurred -cont IVF at 75ml/hr. 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 Despite improvement of hydration status with IVF, Na remained low and Urine testing was c/w inappropriate release of Na indicating possible SiADH. Since fluid restriction was not an option he was started on salt replacement (bid dosing) and Na has since improved. -cont to hold Salt tabs for now. repeat Na in a.m. #Recent multidrug Klebsiella UTI with UCx c/w Klebsiella in a pt with indwelling Parks -unclear if active infection is present -ID is following -cont with Meropenem #BPH, Urinary Retention #Hematuria, resolved. Now back on Plavix. Holding Aspirin #Balanitis: resolved. Treated with antifungal crema #cough, resolved #concerns for aspiration -MACHINE SORTER has evaluated. Please see their note. 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 They are still resistant to pursuing hospice and are hoping there is reversibility in the pt's condition. They agreed to make the pt DNR. They requested that the Parks be removed but replaced if there was urinary retention. We discussed this morning that he was still retaining urine and the family has agreed to replace it. They want to see if he has any improvement today and will consider their options pending his clinical course -cont with Ertapenem. ID is following. -Cont with IVF -cont with BP mgmt. Will increase Hydralazine again. -SCD's Subjective: encephalopathic. retaining urine. VSS Objective: Vital Signs Temp Pulse Resp BP Pulse Ox 37.2 C 78 16 174/87 H 94 06/25/18 08:30 06/25/18 08:30 06/25/18 08:30 06/25/18 08:30 06/25/18 08:30 Laboratory Results 06/24/18 04:37 06/25/18 09:32 06/24/18 06/25/18 06/26/18 05:59 05:59 05:59 Intake Total 1206 1053 Output Total 1800 1751 Balance -594 -698 PT 13.9 SEC (12.0-15.0) 06/18/18 11:14 INR 1.05 (0.83-1.16) 06/18/18 11:14 - Time Spent With Patient Time Spent with Patient: greater than 35 minutes Time Spent with Patient: Greater than 35 minutes spent on this patients care, greater than 50% of time spent counseling, educating, and coordinating care regarding the above mentioned plan. - Physical Exam Constitutional: chronically ill appearing Eyes: PERRL Ears, Nose, Mouth, Throat: moist mucous membranes, hearing normal Cardiovascular: regular rate and rhythym, no murmur, rub, or gallop Respiratory: no respiratory distress, no rales or rhonchi, clear to auscultation Gastrointestinal: normoactive bowel sounds Skin: warm Neurologic: AAOx3 Psychiatric: encephalopathic Lymph, Heme, Immunologic: No petechiae ICD10 Worksheet Patient Problems: Problems Problem Status Onset Altered mental status Acute History of ischemic right ICA stroke Acute Hyponatremia Acute Cerebrovascular accident (CVA) involving left cerebral hemisphere Acute
[2018-06-25] MEDS: LISINOPRIL 40 MG TAB PO SCH (13:57)
[2018-06-25] MEDS: SOTALOL HCL 80 MG TAB PO SCH ×2 (13:57→22:44)
[2018-06-25] MEDS: TAMSULOSIN HCL 0.4 MG CAP PO SCH (13:57)
[2018-06-25] MEDS: hydrALAZINE 10 MG TAB PO SCH ×3 (13:57→22:43)
[2018-06-25] MEDS: CLOPIDOGREL BISULFATE 75 MG TAB PO SCH (13:57)
[2018-06-25] MEDS: BENZONATATE 100 MG CAP PO SCH ×3 (13:57→22:42)
[2018-06-25] MEDS: FLUTICASONE NASAL 120 SPRAYS/16 GM MDI EACHNARE SCH (13:57)
[2018-06-25] MEDS: ATORVASTATIN CALCIUM 40 MG TAB PO SCH (13:57)
[2018-06-25] MEDS: INSULIN GLARGINE 100 UNITS/ML UNIT SC SCH (14:34)
[2018-06-25] MEDS: LIDO/ZINC OX/CLOTRIMAZOLE (MAD) 116 GM CREAM TP SCH ×2 (14:35→22:45)
[2018-06-25] MEDS: PANTOPRAZOLE SODIUM 40 MG TAB PO SCH (16:29)
[2018-06-25] MEDS ORDERED: hydrALAZINE 20 MG/ML VIAL IVP PRN (17:17)
[2018-06-25] MEDS: DOCUSATE SODIUM 100 MG CAP PO SCH (22:43)
[2018-06-26 06:45] LABS: PLATELET COUNT 403 10^3/uL (150-400)
[2018-06-26] MEDS: ERTAPENEM 1 GM in NS 100 ML IV SCH (08:58)
[2018-06-26] MEDS: hydrALAZINE 10 MG TAB PO SCH (08:58)
[2018-06-26] MEDS: LISINOPRIL 40 MG TAB PO SCH (08:59)
[2018-06-26] MEDS: TAMSULOSIN HCL 0.4 MG CAP PO SCH (09:10)
[2018-06-26] MEDS: BENZONATATE 100 MG CAP PO SCH (09:10)
[2018-06-26] MEDS: CLOPIDOGREL BISULFATE 75 MG TAB PO SCH (09:12)
[2018-06-26] MEDS: ATORVASTATIN CALCIUM 40 MG TAB PO SCH (09:12)
[2018-06-26] MEDS: SOTALOL HCL 80 MG TAB PO SCH (09:12)
[2018-06-26] MEDS: LIDO/ZINC OX/CLOTRIMAZOLE (MAD) 116 GM CREAM TP SCH ×2 (09:15→22:00)
[2018-06-26] MEDS: FLUTICASONE NASAL 120 SPRAYS/16 GM MDI EACHNARE SCH (09:18)
[2018-06-26] MEDS: INSULIN GLARGINE 100 UNITS/ML UNIT SC SCH (09:23)
--- NOTE | 2018-06-26 14:52 | HOSPPROG ---
Hospitalist Progress Note Assessment/Plan: 83 yo male admitted with AMS due to dehydration and possibly UTI #Acute on chronic Encephalopathy, etiology is likely multifactorial -waxing and weaning -Encephalopathy persists #Dehydration -I believe that he has been having issues with dehydration since before this admission. He was dehydrated on admission and his Encephalopathy improved with IVF. He has not been able to take a normal amount of PO fluids and dehydration has recurred -cont IVF at 75ml/hr. 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 Despite improvement of hydration status with IVF, Na remained low and Urine testing was c/w inappropriate release of Na indicating possible SiADH. Since fluid restriction was not an option he was started on salt replacement (bid dosing) and Na has since improved. -cont to hold Salt tabs for now. repeat Na in a.m. #Recent multidrug Klebsiella UTI with UCx c/w Klebsiella in a pt with indwelling Parks -unclear if active infection is present -ID is following -cont with Meropenem #BPH, Urinary Retention #Hematuria, resolved. Now back on Plavix. Holding Aspirin #Balanitis: resolved. Treated with antifungal crema #cough, resolved #concerns for aspiration -[employer] MACHINE OPERATOR HELPER has evaluated. Please see their note. 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 His MDPOA wishes to look at obtaining hospice. We will stop all oral meds. Likely d/c tomorrow or Friday. They have requested that we cont Plavix to prevent a stroke cont IVF Regular diet await official decision from family about hospice cont with abx until tomorrow -SCD's Subjective: more awake. still on IVF Objective: Vital Signs Temp Pulse Resp BP Pulse Ox 36.4 C 73 15 160/80 H 95 06/26/18 08:00 06/26/18 09:12 06/26/18 08:00 06/26/18 09:12 06/26/18 08:00 Laboratory Results 06/26/18 04:38 06/26/18 04:38 06/25/18 06/26/18 06/27/18 05:59 05:59 05:59 Intake Total 1053 999 Output Total 1751 1125 Balance -698 -126 PT 13.9 SEC (12.0-15.0) 06/18/18 11:14 INR 1.05 (0.83-1.16) 06/18/18 11:14 - Time Spent With Patient Time Spent with Patient: greater than 35 minutes Time Spent with Patient: Greater than 35 minutes spent on this patients care, greater than 50% of time spent counseling, educating, and coordinating care regarding the above mentioned plan. - Physical Exam Constitutional: no apparent distress Eyes: PERRL Ears, Nose, Mouth, Throat: moist mucous membranes Cardiovascular: regular rate and rhythym Respiratory: no respiratory distress, reduced air movement Gastrointestinal: normoactive bowel sounds, soft, non-tender abdomen Skin: warm Neurologic: No AAOx3 Psychiatric: encephalopathic Lymph, Heme, Immunologic: No petechiae ICD10 Worksheet Patient Problems: Problems Problem Status Onset Altered mental status Acute History of ischemic right ICA stroke Acute Hyponatremia Acute Cerebrovascular accident (CVA) involving left cerebral hemisphere Acute
--- NOTE | 2018-06-26 15:01 | ASMTCMCOM ---
CM Note CM Note Notes: Plan of care reviewed in rounds. Met with family multiple times to review options of hospice care as inpatient versus at home hospice. They are going to go look at [facility] as inpatient there would be preferable over [facility] as the patient's son, Allen works in [place]. I have placed referral to [facility] for possible G[facility] bed options. Referral also sent to [facility] as well. CM to follow for needs. Plan: hopefully discharge to SNF with hospice vs home hospice. Date Signed: 06/26/2018 03:00 PM Electronically Signed By:Marion Suero RN
[2018-06-26] MEDS: NS 1,000 ML IV SCH (16:45)
[2018-06-26] MEDS: DOCUSATE SODIUM 100 MG CAP PO SCH (22:02)
[2018-06-27] MEDS: NS 1,000 ML IV SCH (05:34)
[2018-06-27] MEDS: ERTAPENEM 1 GM in NS 100 ML IV SCH (08:54)
[2018-06-27] MEDS: FLUTICASONE NASAL 120 SPRAYS/16 GM MDI EACHNARE SCH (08:59)
[2018-06-27] MEDS: LIDO/ZINC OX/CLOTRIMAZOLE (MAD) 116 GM CREAM TP SCH ×2 (09:01→20:29)
[2018-06-27] MEDS: CLOPIDOGREL BISULFATE 75 MG TAB PO SCH (09:39)
--- NOTE | 2018-06-27 12:27 | HOSPPROG ---
Hospitalist Progress Note Assessment/Plan: 83 yo male with hx of stroke admitted with AMS due to dehydration and possibly UTI. He has been in and out of hospital and rehab for quite some time and was admitted from a SNF. He was found to have dehydration. He has a hx of Klebsiella and it was unclear if a recurrence of this was contributing to his AMS. Id was consulted and ultimately he was treated with Abx. His cognition improved initially with IVF but then had waxing and weaning. He is unable to make medical decisions. His son is his MDPOA. Since admission there has been concern for aspiration although he has not had a pneumonia. Ultimately the family has chosen hospice and this is currently being set up. All oral non pertinent meds have been stopped. He does cont on IVF until a final decision regarding hospice is made. He has not been able to take sufficient PO intake to maintain hydration. His last day of abx is today and these have not had a much impact on his overall condition. DDX. #Acute on chronic Encephalopathy, etiology is likely multifactorial -waxing and weaning #Dehydration, resolved -I believe that he has been having issues with dehydration since before this admission. He was dehydrated on admission and his Encephalopathy improved with IVF. He has not been able to take a normal amount of PO fluids and dehydration has recurred -cont IVF at 75ml/hr. 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 Despite improvement of hydration status with IVF, Na remained low and Urine testing was c/w inappropriate release of Na indicating possible SiADH. Since fluid restriction was not an option he was started on salt replacement (bid dosing) and Na has since improved. Salt tablets are now being held and Na has not been rechecked given decision towards hospice #Recent multidrug Klebsiella UTI with UCx c/w Klebsiella in a pt with indwelling Parks -unclear if active infection is present -ID is following -cont with Meropenem, last day today #BPH, Urinary Retention #Hematuria, resolved. Now back on Plavix. Holding Aspirin. The family is requesting continuing Plavix as they don't want to take the chance that the patient will have a stroke even if they have chosen hospice as apparently not having another stroke was a patient request #Balanitis: resolved. 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 Awaiting decison from family regarding hospice Objective: Vital Signs Temp Pulse Resp BP Pulse Ox 36.7 C 77 16 167/77 H 93 06/27/18 08:00 06/27/18 08:00 06/27/18 08:00 06/27/18 08:00 06/27/18 08:00 Laboratory Results 06/26/18 04:38 06/26/18 04:38 06/26/18 06/27/18 06/28/18 05:59 05:59 05:59 Intake Total 999 903 Output Total 1125 550 Balance -126 353 PT 13.9 SEC (12.0-15.0) 06/18/18 11:14 INR 1.05 (0.83-1.16) 06/18/18 11:14 - Physical Exam Constitutional: no apparent distress, chronically ill appearing Eyes: PERRL Ears, Nose, Mouth, Throat: moist mucous membranes, hearing normal Cardiovascular: regular rate and rhythym Respiratory: no respiratory distress Gastrointestinal: normoactive bowel sounds, soft, non-tender abdomen, no palpable masses Skin: No induration Psychiatric: encephalopathic Lymph, Heme, Immunologic: No petechiae ICD10 Worksheet Patient Problems: Problems Problem Status Onset Altered mental status Acute History of ischemic right ICA stroke Acute Hyponatremia Acute Cerebrovascular accident (CVA) involving left cerebral hemisphere Acute
[2018-06-27] MEDS: ACETAMINOPHEN 325 MG TAB PO PRN (13:30)
[2018-06-27] MEDS ORDERED: TEARS/DEXTRAN 70/HYPROMELLOSE 15 ML OPHT.BTL EACHEYE PRN (18:54)
[2018-06-27] MEDS: DOCUSATE SODIUM 100 MG CAP PO SCH (20:28)
[2018-06-28] MEDS: CLOPIDOGREL BISULFATE 75 MG TAB PO SCH ×3 (08:52→09:16)
[2018-06-28] MEDS: LIDO/ZINC OX/CLOTRIMAZOLE (MAD) 116 GM CREAM TP SCH (08:52)
[2018-06-28] MEDS: FLUTICASONE NASAL 120 SPRAYS/16 GM MDI EACHNARE SCH (08:54)
--- NOTE | 2018-06-28 09:41 | GDS ---
DISCHARGE DIAGNOSES: 1. Acute encephalopathy. 2. Bacteriuria versus urinary tract infection with extended-spectrum beta- lactamase Escherichia coli. 3. Chronic leukocytosis. 4. Dehydration. 5. Subacute hyponatremia. 6. BPH. 7. Hematuria. 8. Concern for aspiration. 9. Recent right internal capsule stroke with persistent left-sided weakness. 10. Hypertension. 11. Diabetes with hyperglycemia. HISTORY OF PRESENT ILLNESS: An 83-year-old male with recent right internal capsule stroke with residual left-sided weakness who was discharged to [facility] on aspirin and Plavix. He was then discharged to a SNF in [place] in which he declined and was transferred to rehab, [facility] in [place]. He has longstanding BPH and urinary retention and had a Parks trauma while at rehab. He had urine culture there 05/17, which showed Klebsiella pneumonia with multi- drug resistance and was treated with meropenem for 14 days. He presented here with increased confusion. No fevers. Has had an intermittent cough. HOSPITAL COURSE BY PROBLEM: 1. Acute encephalopathy: Multifactorial with recent stroke, hyponatremia and possible UTI. 2. Dehydration: Has been hydrated here with normal saline. 3. Subacute hyponatremia: Multifactorial with dehydration and SIADH. 4. Recent multi-drug Klebsiella UTI: Secondary to indwelling Parks. ID was consulted and continued on meropenem. 5. Hematuria. This has resolved. 6. Concern for aspiration. Regular diet with nectar-thick liquids. 7. Recent right internal capsule stroke with persistent left-sided weakness: He is on aspirin and Plavix, but with hematuria, aspirin was discontinued. Given that he is going to hospice, I think it is reasonable to discontinue all medications to reduce pill burden. Will continue only Plavix per family request. 8. Hypertension: Will discontinue all medications with hospice. 9. Goals: By partner, Dr. Tavarez, met with family and son who is MERCEDES who has opted for hospice. He will discharge to [facility] today. DISPOSITION: Patient is stable for discharge to [facility]. MEDICATIONS: Continue only Plavix per family request. PHYSICAL EXAMINATION: VITAL SIGNS: Today, temperature 36.9 blood pressure 155/ 80, heart rate in the 80s, respirations 18. GENERAL: He is fatigued, lying in bed, in no acute distress. HEENT: PERRLA. Moist mucous membranes CV: Regular rate and rhythm. LUNGS: Clear. ABDOMEN: Soft, nontender. No grimace with palpation. NEURO: No focal deficits. PSYCH: Mumbling, nonsensical. Time spent on discharge: Greater 30 minutes coordinating with Case Management for discharge to [facility]. /[id number]/MODL MTDD
--- NOTE | 2018-06-28 09:52 | PDIAF ---
- Diagnosis Diagnosis: Encephalopathy Code Status: Do Not Resuscitate - Medication Management Discharge Medications: Refer to the Discharge Home Medication list for PRN reason. - Orders Services needed: Registered Nurse, Certified Motorcycle Maker Isolation Type: Contact Isolation Diet Texture: Regular Texture Diet, Thin Liquids, [place] Thick Liquids Additional Instructions: Please follow up within 3- 4 weeks of discharge with outpatient [facility] if you continue to have issues with your wounds: You may reach them at [phone] for an appointment and continued management of your wounds. Please call them alfa to schedule your appointment as they fill up quickly. If before that time you have any issues please follow up with your PCP. Wound care: Bedsore (Pressure injury) care: You have a deep tissue pressure injury (also known as a bedsore) on your sit bone (ishium.) To help heal this wound and avoid further injury please do the followin. Reposition yourself frequently, at least every 15 minutes when sitting. We recommend sitting on an air cushion. Please never use a doughnut. 2. When youre in bed, try to rest on your side as much as possible, and change position every two hours (for example, turn or tilt from your right side toward your left).~ If you sleep on a sleep number or medical bed, keep the head of the bed below 30 degrees and keep all pressure off your low back for at least 5 minutes at least every two hours.~ 3. As needed, you may use Calazime, dimethicone moisture barrier cream, or any [id number] diaper rash cream to help prevent or treat a moisture- related rash to your bottom area and buttocks. 4. Please contact [facility] outpatient [facility] for an appointment, at , If your wounds re/open or dont improve, or if you have any further questions or concerns. Yesica Dong [facility] - Follow Up Care Current Providers and Referrals: Mariela Matthews MD [Primary Care Provider] - As per Instructions
--- NOTE | 2018-06-28 10:15 | ASMTCMCOM ---
CM Note CM Note Notes: Spoke with [facility] and VIPIN Jenkins spoke to Dale Esqueda's son, who is agreeable to stretcher transport to the care center which is most appropriate. [facility] to arrange transport. Final orders sent to [facility] via allscripts. PCS form and code status ready for transport pickup. CM available should other needs arise. Plan: DC to inpatient hospice at [facility]. Date Signed: 06/28/2018 10:14 AM Electronically Signed By:Marion Suero RN
[2018-06-28 11:47] VITALS: BP 156/79
== END 2018-06-28 16:08 | disposition hospice, home (50) | DRG 71 ==
LOC: F1N 13:38
PROVIDERS: ADMIT Family Medicine; ATTEND Family Medicine
DX: G93.40 Encephalopathy, unspecified (principal); E87.1 Hypo-osmolality and hyponatremia; N39.0 Urinary tract infection, site not specified; B96.20 Unspecified Escherichia coli [E. coli] as the cause of diseases classified elsewhere; B37.42 Candidal balanitis; E11.65 Type 2 diabetes mellitus with hyperglycemia; N40.1 Benign prostatic hyperplasia with lower urinary tract symptoms; R33.8 Other retention of urine; R31.9 Hematuria, unspecified; L89.159 Pressure ulcer of sacral region, unspecified stage; D72.829 Elevated white blood cell count, unspecified; I10 Essential (primary) hypertension; I69.354 Hemiplegia and hemiparesis following cerebral infarction affecting left non-dominant side; Z95.5 Presence of coronary angioplasty implant and graft; Z87.440 Personal history of urinary (tract) infections; Z79.4 Long term (current) use of insulin; Z96.0 Presence of urogenital implants; Z23 Encounter for immunization; Z79.01 Long term (current) use of anticoagulants
CPT/HCPCS: 80307; 92526-GN; 92610-GN; 92611-GN; 97162-GP; 97167-GO; 97530-GO; 97530-GP; 97535-GO; G0008; G0009; G0480; G8978-GP-CL; G8979-GP-CI; G8987-GO-CM; G8988-GO-CL; G8996-GN-CJ; G8997-GN-CJ; G8998-GN-CJ; J0360; J1335; J1650; J1815; J3475